=== PATIENT | female | born 1990 | race Hispanic/Latino ===

== ENCOUNTER 2017-09-23 02:15 | Emergency (ER) | payer OTHER, SELFPAY ==
[2017-09-23] MEDS ORDERED: HYDROCODONE/APAP 7.5/325 MG TAB ONE (02:49)
[2017-09-23 03:03] LABS: Absolute Lymphocytes (CBC) 1.5 K/uL (0.7-4.9); Absolute Monocytes 0.5 K/uL (0.1-1.3); Absolute Neutrophil 6.8 K/uL (1.8-8.0); Basophils % 0.2 % (0-1.3); Eosinophils % 2.1 % (0-4.4); Hematocrit 39.1 % (36.0-45.0); Lymphocytes % 16.7 % (15.3-44.8); MCV 87.4 fL (80-100); Monocytes % 5.8 % (3.3-12.3); RBC Red Blood Cell Count 4.48 M/uL (3.86-4.86)
--- NOTE | 2017-09-23 03:29 | EDPHYS ---
Physician Documentation [facility] Name: Bianca Zamora Age: 26 yrs Sex: Female : 1990 Arrival Date: 09/23/2017 Time: 02:20 Bed 15 Private MD: ED Physician Wilmer Hernandez HPI: 09/23 02:46 This 26 yrs old Female presents to ER via Ambulatory with complaints of Cough, pkl Headache. 02:46 The patient or guardian reports cough, described as mild, with no sputum. Onset: The pkl symptoms/episode began/occurred yesterday. Associated signs and symptoms: Pertinent positives: sore throat, headache. 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 - Social history:: Smoking status: Patient/guardian denies using tobacco, the patient reports quitting approximately .25 years ago, Patient uses alcohol, but reports only rare drinking. Patient/guardian denies using street drugs. ROS: 02:46 Eyes: Negative for injury, pain, redness, and discharge. pkl 02:46 ENT: Positive for sore throat. 02:46 Neck: Negative for stiffness. 02:46 Cardiovascular: Negative for chest pain. 02:46 Respiratory: Positive for cough, with no reported sputum. 02:46 Abdomen/GI: Negative for abdominal pain, nausea, vomiting, and diarrhea. 02:46 Back: Negative for acute changes. 02:46 : Negative for urinary symptoms. 02:46 MS/extremity: Negative for acute changes. 02:46 Skin: Negative for rash. 02:46 Neuro: Positive for headache. Exam: 02:46 Head/Face: Normocephalic, atraumatic. Eyes: Pupils equal round and reactive to light, pkl extra-ocular motions intact. Lids and lashes normal. Conjunctiva and sclera are non-icteric and not injected. Cornea within normal limits. Periorbital areas with no swelling, redness, or edema. ENT: Nares patent. No nasal discharge, no septal abnormalities noted. Tympanic membranes are normal and external auditory canals are clear. Oropharynx with no redness, swelling, or masses, exudates, or evidence of obstruction, uvula midline. Mucous membranes moist. Neck: Trachea midline, no thyromegaly or masses palpated, and no cervical lymphadenopathy. Supple, full range of motion without nuchal rigidity, or vertebral point tenderness. No Meningismus. Chest/axilla: Normal chest wall appearance and motion. Nontender with no deformity. No lesions are appreciated. Cardiovascular: Regular rate and rhythm with a normal S1 and S2. No gallops, murmurs, or rubs. Normal PMI, no JVD. No pulse deficits. Respiratory: Lungs have equal breath sounds bilaterally, clear to auscultation and percussion. No rales, rhonchi or wheezes noted. No increased work of breathing, no retractions or nasal flaring. Abdomen/GI: Soft, non-tender, with normal bowel sounds. No distension or tympany. No guarding or rebound. No evidence of tenderness throughout. Back: No spinal tenderness. No costovertebral tenderness. Full range of motion. Skin: Warm, dry with normal turgor. Normal color with no rashes, no lesions, and no evidence of cellulitis. MS/ Extremity: Pulses equal, no cyanosis. Neurovascular intact. Full, normal range of motion. Neuro: Awake and alert, GCS 15, oriented to person, place, time, and situation. Cranial nerves II-XII grossly intact. Motor strength 5/5 in all extremities. Sensory grossly intact. Cerebellar exam normal. Normal gait. Vital Signs: 02:38 BP 126 / 79; Pulse 79; Resp 18; Temp 98.0(O); Pulse Ox 100% on R/A; Weight 83.91 kg fc (R); Height 5 ft. 3 in. (160.02 cm) (R); Pain 7/10; 03:21 BP 99 / 65; Pulse 74; Resp 18; Pulse Ox 100% on R/A; mg2 02:38 Body Mass Index 32.77 (83.91 kg, 160.02 cm) fc MDM: 02:38 Patient medically screened. [facility] 03:21 Data reviewed: vital signs, nurses notes, lab test result(s). [facility] 09/23 02:45 Order name: CBC with Diff; Complete Time: 03:19 [facility] 09/23 02:45 Order name: Strep; Complete Time: 03:19 pkl 09/23 03:19 Order name: Throat Culture EDMS Administered Medications: 02:51 Drug: [place] (7.5 mg-325 mg) 1 tabs Route: PO; mg2 03:40 Follow up: Response: No adverse reaction; Pain is decreased mg2 Disposition: 09/23/17 03:28 Discharged to Home. Impression: Acute headache. Upper respiratory infection. - Condition is Stable. - Prescriptions for Ultram 50 mg Oral Tablet - take 1 tablet by ORAL route every 8 hours As needed; 20 tablet. Guaifenesin AC 10- 100 mg/5 mL Oral Liquid - take 10 milliliters by ORAL route every 8 hours As needed; 120 milliliter. - Medication Reconciliation Form, Thank You Letter, Antibiotic Education, Prescription Opioid Use form. - Follow up: Private Physician; When: 2 - 3 days; Reason: Re-evaluation by your physician. Signatures: Dispatcher [employer] EDMS Wilmer Hernandez MD MD pkl Melinda Macias RN RN Santhosh Heredia RN RN mg2 Corrections: (The following items were deleted from the chart) 03:47 03:28 09/23/2017 03:28 Discharged to Home. Impression: Acute headache. Upper mg2 respiratory infection. Condition is Stable. Forms are Medication Reconciliation Form, Thank You Letter, Antibiotic Education, Prescription Opioid Use. Follow up: Private Physician; When: 2 - 3 days; Reason: Re-evaluation by your physician. pkl
--- NOTE | 2017-09-23 03:29 | ER ---
Nurse's Notes [facility] Name: Bianca Zamora Age: 26 yrs Sex: Female : 1990 Arrival Date: 09/23/2017 Time: 02:20 Bed 15 Private MD: Diagnosis: Acute headache. Upper respiratory infection Presentation: 09/23 02:35 Presenting complaint: Patient states: that yesterday morning she started to have a fc headache with nausea. It has gotten worse since. Also has sore throat, non-productive cough, no fever and has chest tightness but only when she coughs. Transition of care: patient was not received from another setting of care. Onset of symptoms was September 22, 2017. Initial Sepsis Screen: Does the patient meet any 2 criteria? No. Patient's initial sepsis screen is negative. Does the patient have a suspected source of infection? No. Patient's initial sepsis screen is negative. Care prior to arrival: None. 02:35 Method Of Arrival: Ambulatory 02:35 Acuity: LOAN 3 Triage Assessment: 02:38 Headache History: The patient has had previous headaches and this one is similar to previous episodes. 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 - Social history:: Smoking status: Patient/guardian denies using tobacco, the patient reports quitting approximately .25 years ago, Patient uses alcohol, but reports only rare drinking. Patient/guardian denies using street drugs. Screenin:39 Abuse screen: Denies threats or abuse. Nutritional screening: No deficits noted. bb Tuberculosis screening: No symptoms or risk factors identified. Fall Risk None identified. Assessment: 02:39 General: Appears in no apparent distress. uncomfortable, Behavior is calm, cooperative. bb Pain: Complains of pain in headache. Pain: Pain does not radiate. Pain began 1 day ago. Neuro: Level of Consciousness is awake, alert, obeys commands, Oriented to person, place, time, situation. Cardiovascular: No deficits noted. Respiratory: Respiratory effort is even, unlabored. GI: No signs and/or symptoms were reported involving the gastrointestinal system. : No signs and/or symptoms were reported regarding the genitourinary system. Derm: Skin is pink, warm \T\ dry. Musculoskeletal: Circulation, motion, and sensation intact. Vital Signs: 02:38 BP 126 / 79; Pulse 79; Resp 18; Temp 98.0(O); Pulse Ox 100% on R/A; Weight 83.91 kg fc (R); Height 5 ft. 3 in. (160.02 cm) (R); Pain 7/10; 03:21 BP 99 / 65; Pulse 74; Resp 18; Pulse Ox 100% on R/A; mg2 02:38 Body Mass Index 32.77 (83.91 kg, 160.02 cm) ED Course: 02:20 Patient arrived in ED. es 02:35 Inserted saline lock: 20 gauge in left forearm, using aseptic technique. Patient bb maintains SpO2 saturation greater than 95% on room air. 02:36 Triage completed. 02:38 Wilmer Hernandez MD is Attending Physician. pkl 02:39 Santhosh Heredia, PORSCHE is Primary Nurse. mg2 02:39 Patient has correct armband on for positive identification. Placed in gown. Bed in low bb position. Call light in reach. Side rails up X2. Adult w/ patient. Pulse ox on. NIBP on. Warm blanket given. 03:46 No provider procedures requiring assistance completed. IV discontinued, intact, mg2 bleeding controlled, No redness/swelling at site. Pressure dressing applied. Administered Medications: 02:51 Drug: [place] (7.5 mg-325 mg) 1 tabs Route: PO; mg2 03:40 Follow up: Response: No adverse reaction; Pain is decreased mg2 Outcome: 03:28 Discharge ordered by . pklito 03:47 Discharged to home ambulatory, with family. mg2 03:47 Condition: stable 03:47 Discharge instructions given to patient, family, Instructed on discharge instructions, follow up and referral plans. Demonstrated understanding of instructions, follow-up care, medications, Prescriptions given X 2. 03:47 Patient left the ED. mg2 Signatures: Wilmer Hernandez MD MD pkl Salyer, Edna es Chretien, Felicia, RN RN Marika Horne RN RN bb Santhosh Heredia RN RN mg2
== END 2017-09-23 03:47 | disposition home or self-care (01) ==
LOC: ER 02:15
DX: J06.9 Acute upper respiratory infection, unspecified (principal)
CPT/HCPCS: 36415; 85025; 87070; 87081; 99284

== ENCOUNTER 2018-02-05 21:06 | Emergency (ER) | payer SELFPAY ==
--- NOTE | 2018-02-05 21:31 | ER ---
Nurse's Notes [facility] Name: Bianca Zamora Age: 27 yrs Sex: Female : 1990 Arrival Date: 02/05/2018 Time: 21:08 Bed 16 Private MD: Diagnosis: Dental caries;Fall due to bumping against object Presentation: 02/05 21:16 Presenting complaint: Patient states: right lower tooth pain X6 months. pt stated she ak1 fell into counter yesterday and pain resolved, pain returned tonight after bending over. Transition of care: patient was not received from another setting of care. Onset of symptoms is unknown. Risk Assessment: Do you want to hurt yourself or someone else? Patient reports no desire to harm self or others. Initial Sepsis Screen: Does the patient meet any 2 criteria? No. Patient's initial sepsis screen is negative. Does the patient have a suspected source of infection? No. Patient's initial sepsis screen is negative. Care prior to arrival: None. 21:16 Method Of Arrival: Ambulatory ak1 21:16 Acuity: LOAN 4 ak1 Triage Assessment: 21:20 General: Appears in no apparent distress. uncomfortable, Behavior is calm, cooperative, jb4 appropriate for age. 21:20 EENT: Reports pain in mouth. 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 - Social history:: Smoking status: Patient uses tobacco products, denies chronic smoking, but will smoke occasionally. - Ebola Screening: : No symptoms or risks identified at this time. Screenin:30 Abuse screen: Denies threats or abuse. Nutritional screening: On. Tuberculosis jb4 screening: No symptoms or risk factors identified. Fall Risk None identified. Assessment: 21:30 General: Appears in no apparent distress. uncomfortable, Behavior is calm, cooperative, jb4 appropriate for age. Pain: Complains of pain in low back area, tooth ache Pain does not radiate. Pain currently is 2 out of 10 on a pain scale. Quality of pain is described as stabbing, throbbing. Neuro: Level of Consciousness is awake, alert, obeys commands, Oriented to person, place, time, situation. Cardiovascular: Patient's skin is warm and dry. Respiratory: Airway is patent Respiratory effort is even, unlabored, Respiratory pattern is regular, symmetrical, Breath sounds are clear bilaterally. GI: No signs and/or symptoms were reported involving the gastrointestinal system. : No signs and/or symptoms were reported regarding the genitourinary system. EENT: Oral mucosa is moist. Dental caries noted in mouth. Derm: Skin is intact, Skin is pink, warm \T\ dry. Musculoskeletal: Circulation, motion, and sensation intact. 21:45 Reassessment: Patient appears in no apparent distress at this time. Patient is alert, jb4 oriented x 3, equal unlabored respirations, skin warm/dry/pink. Discussed D/c, F/u with pt, denies questions of concerns. Vital Signs: 21:18 BP 136 / 81; Pulse 99; Resp 18; Temp 98; Pulse Ox 100% on R/A; Weight 89.81 kg (R); ak1 Height 5 ft. 4 in. (162.56 cm) (R); Pain 7/10; 21:30 BP 115 / 64; Pulse 78; Resp 18; Pulse Ox 100% on R/A; Pain 2/10; jb4 21:18 Body Mass Index 33.99 (89.81 kg, 162.56 cm) ak1 ED Course: 21:08 Patient arrived in ED. ds1 21:17 Triage completed. ak1 21:18 Arm band placed on Patient placed in an exam room, on a stretcher, Patient notified of ak1 wait time. 21:20 Roxana Dawn FNP-C is PHCP. snw 21:20 Javan Gore MD is Attending Physician. snw 21:21 Artie Dykes, PORSCHE is Primary Nurse. jb4 21:30 Patient has correct armband on for positive identification. Placed in gown. Bed in low jb4 position. Call light in reach. Side rails up X 1. Pulse ox on. NIBP on. 21:45 Patient did not have IV access during this emergency room visit. jb4 21:45 No provider procedures requiring assistance completed. jb4 Administered Medications: 21:37 Drug: Motrin 600 mg Route: PO; jb4 21:38 Drug: Augmentin 875 mg Route: PO; jb4 Outcome: 21:31 Discharge ordered by . mu 21:45 Patient left the ED. jb4 21:45 Discharged to home ambulatory. jb4 21:45 Condition: stable 21:45 Discharge instructions given to patient, Instructed on discharge instructions, follow up and referral plans. medication usage, Demonstrated understanding of instructions, follow-up care, medications, Prescriptions given X 2. Signatures: Roxana Dawn, DENTAL FRONT OFFICE ASSISTANT-C DENTAL FRONT OFFICE ASSISTANT-Liz Garcia ds1 Shawna Aaron, RN RN ak1 Artie Dykes, RN RN jb4 Corrections: (The following items were deleted from the chart) 22:02 22:02 General: Appears in no apparent distress. uncomfortable, Behavior is calm, jb4 cooperative, appropriate for age, jb4 22:09 21:45 Reassessment: D/c, F/u to pt, denies concerns. jb4 jb4
--- NOTE | 2018-02-05 21:31 | EDPHYS ---
Physician Documentation [facility] Name: Bianca Zamora Age: 27 yrs Sex: Female : 1990 Arrival Date: 02/05/2018 Time: 21:08 Bed 16 Private MD: ED Physician Javan Gore HPI: 02/05 21:36 This 27 yrs old Female presents to ER via Ambulatory with complaints of snw Toothache, Back Pain. 21:36 The patient presents with broken tooth/teeth, pain. The problem is located in the lower snw right second molar. Onset: The symptoms/episode began/occurred gradually, 6 month(s) ago, and became persistent. Duration: The symptoms are continuous. Associated signs and symptoms: Pertinent positives: pt states she slipped an fell back into the counter last pm and now c/o back pain as well. Severity of symptoms: At their worst the symptoms were mild, moderate. It is unknown whether or not the patient has had similar symptoms in the past. The patient has not recently seen a physician, pt states she has a dentist but it is in [place]. 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 - Social history:: Smoking status: Patient uses tobacco products, denies chronic smoking, but will smoke occasionally. - Ebola Screening: : No symptoms or risks identified at this time. ROS: 21:35 Constitutional: Negative for fever, chills, and weight loss, Eyes: Negative for injury, snw pain, redness, and discharge, Neck: Negative for injury, pain, and swelling, Cardiovascular: Negative for chest pain, palpitations, and edema, Respiratory: Negative for shortness of breath, cough, wheezing, and pleuritic chest pain, Abdomen/GI: Negative for abdominal pain, nausea, vomiting, diarrhea, and constipation, : Negative for injury, bleeding, discharge, and swelling, MS/Extremity: Negative for injury and deformity, Skin: Negative for injury, rash, and discoloration, Neuro: Negative for headache, weakness, numbness, tingling, and seizure. 21:35 ENT: Positive for dental pain. 21:35 Back: Positive for injury or acute deformity, of the lumbar area. Exam: 21:34 Constitutional: This is a well developed, well nourished patient who is awake, alert, snw and in no acute distress. Head/Face: Normocephalic, atraumatic. Eyes: Pupils equal round and reactive to light, extra-ocular motions intact. Lids and lashes normal. Conjunctiva and sclera are non-icteric and not injected. Cornea within normal limits. Periorbital areas with no swelling, redness, or edema. Neck: Trachea midline, no thyromegaly or masses palpated, and no cervical lymphadenopathy. Supple, full range of motion without nuchal rigidity, or vertebral point tenderness. No Meningismus. Chest/axilla: Normal chest wall appearance and motion. Nontender with no deformity. No lesions are appreciated. Cardiovascular: Regular rate and rhythm with a normal S1 and S2. No gallops, murmurs, or rubs. Normal PMI, no JVD. No pulse deficits. Respiratory: Lungs have equal breath sounds bilaterally, clear to auscultation and percussion. No rales, rhonchi or wheezes noted. No increased work of breathing, no retractions or nasal flaring. Abdomen/GI: Soft, non-tender, with normal bowel sounds. No distension or tympany. No guarding or rebound. No evidence of tenderness throughout. Skin: Warm, dry with normal turgor. Normal color with no rashes, no lesions, and no evidence of cellulitis. MS/ Extremity: Pulses equal, no cyanosis. Neurovascular intact. Full, normal range of motion. Neuro: Awake and alert, GCS 15, oriented to person, place, time, and situation. Cranial nerves II-XII grossly intact. Motor strength 5/5 in all extremities. Sensory grossly intact. Cerebellar exam normal. Normal gait. Psych: Awake, alert, with orientation to person, place and time. Behavior, mood, and affect are within normal limits. 21:34 ENT: External ear(s): are unremarkable, Ear canal(s): are normal, TM's: are normal, Nose: is normal, Mouth: is normal, Posterior pharynx: is normal, Dental exam: fractured teeth are noted, specifically the lower right second molar (#31), missing teeth, pain. 21:34 Back: pain, that is very mild, that is mild, of the lumbar area, ROM is normal, normal spinal alignment noted. Vital Signs: 21:18 BP 136 / 81; Pulse 99; Resp 18; Temp 98; Pulse Ox 100% on R/A; Weight 89.81 kg (R); ak1 Height 5 ft. 4 in. (162.56 cm) (R); Pain 7/10; 21:30 BP 115 / 64; Pulse 78; Resp 18; Pulse Ox 100% on R/A; Pain 2/10; jb4 21:18 Body Mass Index 33.99 (89.81 kg, 162.56 cm) ak1 MDM: 21:25 Patient medically screened. snw 21:35 Data reviewed: vital signs, nurses notes. Data interpreted: Pulse oximetry: on room air snw is 100 %. Interpretation: normal. Counseling: I had a detailed discussion with the patient and/or guardian regarding: the historical points, exam findings, and any diagnostic results supporting the discharge/admit diagnosis, the presence of at least one elevated blood pressure reading (>120/80) during this emergency department visit, the need for outpatient follow up, for definitive care, to return to the emergency department if symptoms worsen or persist or if there are any questions or concerns that arise at home. Special discussion: I have referred the patient to see his PCP for further evaluation of high blood pressure. Based on the history and exam findings, there is no indication for further emergent testing or inpatient evaluation. I discussed with the patient/guardian the need to see a dentist for further evaluation of the symptoms. I discussed with the patient/guardian the need to see the primary care provider for further evaluation of the symptoms. Administered Medications: 21:37 Drug: Motrin 600 mg Route: PO; jb4 21:38 Drug: Augmentin 875 mg Route: PO; jb4 Disposition: 02/06 06:25 Co-signature as Attending Physician, Javan Gore MD I agree with the assessment and tw4 plan of care. Attestation: The patient's history, exam findings, diagnostics, and a summary of any interventions or procedures was reviewed in detail with Roxana JACOBO. Disposition: 02/05/18 21:31 Discharged to Home. Impression: Dental caries, Fall due to bumping against object. - Condition is Stable. - Discharge Instructions: Back Pain, Adult, Dental Pain, Fall Prevention in the Home, Diet and Dental Disease. - Prescriptions for Augmentin 500- 125 mg Oral Tablet - take 1 tablet by ORAL route every 8 hours for 10 days; 30 tablet. Diclofenac Sodium 75 mg Oral Tablet Sustained Release - take 1 tablet by ORAL route 2 times per day; 30 tablet. - Medication Reconciliation Form, Thank You Letter, Antibiotic Education, Prescription Opioid Use form. - Follow up: Emergency Department; When: As needed; Reason: Worsening of condition. Follow up: Private Physician; When: 1 - 2 days; Reason: Recheck today's complaints, Continuance of care, Re-evaluation by your physician. Signatures: Roxana Dawn FNP-C VERIFICATION CLERK-Csnw Shawna Aaron, RN RN ak1 Artie Dykes RN RN jb4 Javan Gore MD MD tw4 Corrections: (The following items were deleted from the chart) 02/05 21:45 21:31 02/05/2018 21:31 Discharged to Home. Impression: Dental caries; Fall due to jb4 bumping against object. Condition is Stable. Forms are Medication Reconciliation Form, Thank You Letter, Antibiotic Education, Prescription Opioid Use. Follow up: Emergency Department; When: As needed; Reason: Worsening of condition. Follow up: Private Physician; When: 1 - 2 days; Reason: Recheck today's complaints, Continuance of care, Re-evaluation by your physician. snw
[2018-02-05] MEDS ORDERED: IBUPROFEN 400 MG TAB ONE (21:40)
[2018-02-05] MEDS ORDERED: IBUPROFEN 200 MG TAB PO ONE (21:40)
[2018-02-05] MEDS ORDERED: AMOX/K CLAV 875 MG TAB ONE (21:40)
== END 2018-02-05 21:45 | disposition home or self-care (01) ==
LOC: ER 21:06
DX: K02.9 Dental caries, unspecified (principal); W18.00XA Striking against unspecified object with subsequent fall, initial encounter; Y93.89 Activity, other specified; Y92.89 Other specified places as the place of occurrence of the external cause; Z72.0 Tobacco use
CPT/HCPCS: 99283

== ENCOUNTER 2019-06-02 22:41 | Emergency (ER) | payer SELFPAY ==
--- OUTSIDE RECORDS SUMMARY | 2019-06-02 22:44 | XMS REPORT ---
:1990 [facility] Address [address] [place] [address] Dr. Escobedo. [address] [place] [id number] Care Team Providers Name Role Phone Unavailable Unavailable Unavailable Problems This patient has no known problems. Allergies, Adverse Reactions, Alerts This patient has no known allergies or adverse reactions. Medications This patient has no known medications.
[2019-06-02] MEDS ORDERED: NA CHLORIDE 0.9% 1,000 ML ONE (23:35)
[2019-06-02] MEDS ORDERED: DIPHENHYDRAMINE 50 MG/ML VIAL ONE (23:35)
[2019-06-02] MEDS ORDERED: KETOROLAC 30 MG/ML INJ ONE (23:35)
[2019-06-02] MEDS ORDERED: METOCLOPRAMIDE 10 MG/2mL INJ ONE (23:35)
--- NOTE | 2019-06-03 00:21 | ER ---
Nurse's Notes [facility] Name: Bianca Zamora Age: 28 yrs Sex: Female : 1990 Arrival Date: 06/02/2019 Time: 22:44 Bed 13 Private MD: Diagnosis: Headache Presentation: 06/02 23:00 Presenting complaint: Patient states: that she has had a headache x 3 days along with fc nausea. Some photophobia. Is on Amoxicillin for tooth infection. Transition of care: patient was not received from another setting of care. Onset of symptoms was May 30, 2019. Risk Assessment: Do you want to hurt yourself or someone else? Patient reports no desire to harm self or others. Initial Sepsis Screen: Does the patient meet any 2 criteria? No. Patient's initial sepsis screen is negative. Does the patient have a suspected source of infection? No. Patient's initial sepsis screen is negative. Care prior to arrival: Medication(s) given: Excedrin last at 1600. 23:00 Method Of Arrival: Ambulatory fc 23:00 Acuity: LOAN 4 Triage Assessment: 06/03 02:18 Headache History: The patient has had previous headaches and this one is similar to ch previous episodes. General: Appears in no apparent distress. uncomfortable. Pain: Pain began suddenly, Also complains of nausea, photophobia. Pain: Complains of pain in head. 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 - Coronavirus screen:: The patient has NOT traveled to [place], [place], or [place] in the past 14 days. Proceed with normal triage process as indicated. The patient has NOT had contact with known/suspected case of Coronavirus? Proceed with normal triage procedures. - Social history:: Smoking status: Patient/guardian denies using tobacco, the patient reports quitting approximately 1 years ago, Patient uses alcohol, occasionally. Patient/guardian denies using street drugs. - Ebola Screening: : Patient negative for fever greater than or equal to 101.5 degrees Fahrenheit, and additional compatible Ebola Virus Disease symptoms Patient denies exposure to infectious person Patient denies travel to an Ebola-affected area in the 21 days before illness onset. Screenin:25 Abuse screen: Denies threats or abuse. Denies injuries from another. Nutritional ch screening: No deficits noted. Tuberculosis screening: No symptoms or risk factors identified. Fall Risk None identified. Assessment: 23:25 Reassessment: Patient appears in no apparent distress at this time. Patient and/or ch family updated on plan of care and expected duration. Pain level reassessed. Patient is alert, oriented x 3, equal unlabored respirations, skin warm/dry/pink. General: Appears in no apparent distress. uncomfortable, Behavior is calm, cooperative, appropriate for age. Pain: Complains of pain in top of head, forehead, right mandaeism, left mandaeism, left frontal area, left side of forehead, left temporal area, right frontal area, right temporal area and right side of forehead Pain currently is 10 out of 10 on a pain scale. 23:25 Neuro: Level of Consciousness is awake, alert, obeys commands, Oriented to person, ch place, time, situation, Process Eng are equal bilaterally Moves all extremities. Full function Gait is steady, Speech is normal, Facial symmetry appears normal, Facial symmetry: tongue is midline, Pupils are PERRLA, Reports blurred vision headache blurred vision and nausea. Cardiovascular: Heart tones S1 S2 present. Respiratory: No deficits noted. GI: Reports nausea. : No signs and/or symptoms were reported regarding the genitourinary system. Derm: No signs and/or symptoms reported regarding the dermatologic system. Musculoskeletal: No signs and/or symptoms reported regarding the musculoskeletal system. Vital Signs: 23:03 BP 139 / 81; Pulse 75; Resp 18; Temp 99.1(O); Pulse Ox 100% on R/A; Weight 81.65 kg fc (R); Height 5 ft. 4 in. (162.56 cm) (R); Pain 10; 06/03 00:10 BP 121 / 78; Pulse 64; Resp 18; Temp 98.3; Pulse Ox 99% on R/A; Pain 2/10; ch 06/02 23:03 Body Mass Index 30.90 (81.65 kg, 162.56 cm) Cassandra Coma Score: 00:19 Eye Response: spontaneous(4). Verbal Response: oriented(5). Motor Response: obeys la1 commands(6). Total: 15. ED Course: 06/02 22:44 Patient arrived in ED. jg7 23:01 Triage completed. fc 23:03 Arm band placed on Patient placed in an exam room, on a stretcher. fc 23:04 Constanza Griffith RN is Primary Nurse. ch 23:04 Osman Valenzuela FNP-C is PHCP. la1 23:04 Javan Gore MD is Attending Physician. la1 23:25 No apparent distress. Resting quietly. ch 23:25 Patient has correct armband on for positive identification. Bed in low position. Call ch light in reach. Side rails up X 1. Adult w/ patient. Pulse ox on. NIBP on. Door closed. Noise minimized. Warm blanket given. Pillow given. 23:28 No provider procedures requiring assistance completed. Inserted saline lock: 20 gauge ch in right wrist, using aseptic technique. 06/03 00:00 IV discontinued, intact, bleeding controlled, No redness/swelling at site. Pressure ch dressing applied. Administered Medications: 06/02 23:28 Drug: Reglan 10 mg Route: IVP; Site: right wrist; ch 23:40 Follow up: Response: No adverse reaction ch 23:30 Drug: TORadol - Ketorolac 15 mg Route: IVP; Site: right wrist; ch 23:45 Follow up: Response: No adverse reaction; Marked relief of symptoms ch 23:30 Drug: Benadryl 25 mg Route: IVP; Site: right wrist; ch 23:40 Follow up: Response: No adverse reaction; Marked relief of symptoms ch 23:30 Drug: NS 0.9% 1000 ml Route: IV; Rate: 1000 ml; Site: right wrist; ch 06/03 00:00 Follow up: IV Status: Completed infusion; IV Intake: 1000ml ch Intake: 00:00 IV: 1000ml; Total: 1000ml. ch Outcome: 00:21 Discharge ordered by . la1 00:25 Discharged to home ambulatory, with family. 00:25 Condition: stable 00:25 Discharge instructions given to patient, Instructed on discharge instructions, follow up and referral plans. Demonstrated understanding of instructions, follow-up care. 00:28 Patient left the ED. Signatures: Constanza Griffith RN RN Melinda Vizcarra RN RN Osman Chisholm, CLERK GENERAL OFFICE-C CLERK GENERAL OFFICE-Gabriella1 Leigh Edouard7 Corrections: (The following items were deleted from the chart) 06/02 23:03 23:00 Presenting complaint: Patient states: that she has had a headache x 3 days along fc with nausea. Some photophobia. fc
--- NOTE | 2019-06-03 00:22 | EDPHYS ---
Physician Documentation [facility] Name: Bianca Zamora Age: 28 yrs Sex: Female : 1990 Arrival Date: 06/02/2019 Time: 22:44 Bed 13 Private MD: ED Physician Javan Gore HPI: 06/02 23:17 This 28 yrs old Female presents to ER via Ambulatory with complaints of la1 Headache. 23:17 The patient complains of pain to the global. The patient describes the headache as la1 throbbing. Onset: The symptoms/episode began/occurred 3 day(s) ago. Associated signs and symptoms: Pertinent positives: nausea, Pertinent negatives: fever, neck stiffness, paresthesias, vision changes, vision loss, vomiting, weakness, vertigo. Severity of symptoms: At its worst the pain was moderate. Headache History: The patient has had previous headaches and this one is similar to previous episodes, and this one is more severe than previous episodes. The symptoms are alleviated by Darkened room, the symptoms are aggravated by lights. The patient has experienced similar episodes in the past. 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 - Coronavirus screen:: The patient has NOT traveled to [place], [place], or [place] in the past 14 days. Proceed with normal triage process as indicated. The patient has NOT had contact with known/suspected case of Coronavirus? Proceed with normal triage procedures. - Social history:: Smoking status: Patient/guardian denies using tobacco, the patient reports quitting approximately 1 years ago, Patient uses alcohol, occasionally. Patient/guardian denies using street drugs. - Ebola Screening: : Patient negative for fever greater than or equal to 101.5 degrees Fahrenheit, and additional compatible Ebola Virus Disease symptoms Patient denies exposure to infectious person Patient denies travel to an Ebola-affected area in the 21 days before illness onset. ROS: 23:19 Constitutional: Negative for fever, chills, and weight loss, Eyes: Negative for injury, la1 pain, redness, and discharge, ENT: Negative for injury, pain, and discharge, Neck: Negative for injury, pain, and swelling, Cardiovascular: Negative for chest pain, palpitations, and edema, Respiratory: Negative for shortness of breath, cough, wheezing, and pleuritic chest pain, Abdomen/GI: Negative for abdominal pain, nausea, vomiting, diarrhea, and constipation, : Negative for injury, bleeding, discharge, and swelling, MS/Extremity: Negative for injury and deformity, Skin: Negative for injury, rash, and discoloration. 23:19 Neuro: Positive for headache, Negative for altered mental status, dizziness, hearing loss, loss of consciousness, numbness, seizure activity, speech changes, syncope, near syncope, tingling. Exam: 23:19 Constitutional: This is a well developed, well nourished patient who is awake, alert, la1 and in no acute distress. Head/Face: Normocephalic, atraumatic. Eyes: Pupils equal round and reactive to light, extra-ocular motions intact. Lids and lashes normal. Conjunctiva and sclera are non-icteric and not injected. Cornea within normal limits. Periorbital areas with no swelling, redness, or edema. ENT: Nares patent. No nasal discharge, no septal abnormalities noted. Tympanic membranes are normal and external auditory canals are clear. Oropharynx with no redness, swelling, or masses, exudates, or evidence of obstruction, uvula midline. Mucous membranes moist. Neck: Trachea midline, no thyromegaly or masses palpated, and no cervical lymphadenopathy. Supple, full range of motion without nuchal rigidity, or vertebral point tenderness. No Meningismus. Chest/axilla: Normal chest wall appearance and motion. Nontender with no deformity. No lesions are appreciated. Cardiovascular: Regular rate and rhythm with a normal S1 and S2. No gallops, murmurs, or rubs. Normal PMI, no JVD. No pulse deficits. Respiratory: Lungs have equal breath sounds bilaterally, clear to auscultation Abdomen/GI: Soft, non-tender, Back: No spinal tenderness. No costovertebral tenderness. Full range of motion. Skin: Warm, dry with normal turgor. Normal color with no rashes, no lesions, and no evidence of cellulitis. MS/ Extremity: Pulses equal, no cyanosis. Neurovascular intact. Full, normal range of motion. 23:19 Neuro: Orientation: is normal, to person, place, time \T\ situation. Mentation: is normal, Memory: is normal, Cranial nerves: CN II- XII are normal as tested, Cerebellar function: is grossly normal, Motor: is normal, Sensation: is normal, Gait: is steady. Vital Signs: 23:03 BP 139 / 81; Pulse 75; Resp 18; Temp 99.1(O); Pulse Ox 100% on R/A; Weight 81.65 kg fc (R); Height 5 ft. 4 in. (162.56 cm) (R); Pain 10; 06/03 00:10 BP 121 / 78; Pulse 64; Resp 18; Temp 98.3; Pulse Ox 99% on R/A; Pain 210; ch 06/02 23:03 Body Mass Index 30.90 (81.65 kg, 162.56 cm) Cassandra Coma Score: 00:19 Eye Response: spontaneous(4). Verbal Response: oriented(5). Motor Response: obeys la1 commands(6). Total: 15. MDM: 06/02 23:04 Patient medically screened. la1 06/03 00:19 Data reviewed: vital signs, nurses notes. Data interpreted: Pulse oximetry: on room air la1 is 100 %. Interpretation: normal. Counseling: I had a detailed discussion with the patient and/or guardian regarding: the historical points, exam findings, and any diagnostic results supporting the discharge/admit diagnosis, the need for outpatient follow up, a family practitioner. Special discussion: I discussed with the patient/guardian in detail that at this point there is no indication for admission to the hospital. It is understood, however, that if the symptoms persist or worsen the patient needs to return immediately for re-evaluation. Based on the history and exam findings, there is no indication for further emergent testing or inpatient evaluation. I discussed with the patient/guardian the need to see the primary care provider for further evaluation of the symptoms. ED course: pt feeling much better after meds will have FU with PCP, return precautions given. 06/02 23:11 Order name: IV; Complete Time: :29 la1 Administered Medications: 06/02 23: Drug: Reglan 10 mg Route: IVP; Site: right wrist; ch 23:40 Follow up: Response: No adverse reaction ch 23:30 Drug: TORadol - Ketorolac 15 mg Route: IVP; Site: right wrist; 23:45 Follow up: Response: No adverse reaction; Marked relief of symptoms ch 23:30 Drug: Benadryl 25 mg Route: IVP; Site: right wrist; ch 23:40 Follow up: Response: No adverse reaction; Marked relief of symptoms ch 23:30 Drug: NS 0.9% 1000 ml Route: IV; Rate: 1000 ml; Site: right wrist; 06/03 00:00 Follow up: IV Status: Completed infusion; IV Intake: 1000ml Disposition: 05:19 Co-signature as Attending Physician, Javan Gore MD I agree with the assessment and tw4 plan of care. Disposition: 06/03/19 00:21 Discharged to Home. Impression: Headache. - Condition is Stable. - Discharge Instructions: General Headache Without Cause. - Medication Reconciliation Form, Thank You Letter form. - Follow up: Private Physician; When: As needed; Reason: Recheck today's complaints, Re-evaluation by your physician. - Problem is new. - Symptoms have improved. Signatures: Constanza Griffith RN Melinda Miller ch RN RN fc Osman Valenzuela, LAUNDERER HAND-C LAUNDERER HAND-[facility] Javan Gore MD MD tw4 Corrections: (The following items were deleted from the chart) 00:28 00:21 06/03/2019 00:21 Discharged to Home. Impression: Headache. Condition is Stable. ch Forms are Medication Reconciliation Form, Thank You Letter, Antibiotic Education, Prescription Opioid Use. Follow up: Private Physician; When: As needed; Reason: Recheck today's complaints, Re-evaluation by your physician. Problem is new. Symptoms have improved. la1
[2019-06-03 00:43] VITALS: BP 139/81; TEMP 99.1; O2SAT 100
== END 2019-06-03 00:28 | disposition home or self-care (01) ==
LOC: ER 22:41
DX: R51 Headache (principal)
CPT/HCPCS: 96374; 96375; 99283; J1200; J2765; J7030

== ENCOUNTER 2020-04-23 01:07 | Emergency (ER) | payer SELFPAY ==
--- OUTSIDE RECORDS SUMMARY | 2020-04-23 01:10 | XMS REPORT | Continuity of Care Document ---
:1990 Author Organization [facility] t Address [address] [place] [address] [address] [place] [address] Care Team Providers Name Role Phone Lab, Fam Pob I Attending Clinician Unavailable Doctor Unassigned, Name Attending Clinician Unavailable Problems This patient has no known problems. Allergies, Adverse Reactions, Alerts This patient has no known allergies or adverse reactions. Medications This patient has no known medications. Procedures This patient has no known procedures. Encounters Start End Encounter Admission Attending Care Care Encounter Source Date/Time Date/Time Type Type Clinicians Facility Department ID 2019-11-16 2019-11-16 Laboratory Lab, Adc [facility] [id number] 14:36:15 14:56:15 Only Fam Pob I Health [id number] [place] [id number] [facility] [id number] [address] 2019-11-16 2019-11-16 Letter Doctor [place] [id number] 00:00:00 00:00:00 (Out) Unassigned, [place] [id number] [place] [facility] [id number] Results This patient has no known results.
[2020-04-23] MEDS ORDERED: dexAMETHasone 10 MG/ML VIAL ONE (01:46)
[2020-04-23] MEDS ORDERED: METOCLOPRAMIDE 10 MG/2mL INJ ONE (01:46)
[2020-04-23] MEDS ORDERED: DIPHENHYDRAMINE 50 MG/ML VIAL ONE (01:46)
[2020-04-23] MEDS ORDERED: NA CHLORIDE 0.9% 1,000 ML ONE (01:46)
--- NOTE | 2020-04-23 03:58 | EDPHYS ---
Physician Documentation [facility] Name: Bianca Zamora Age: 29 yrs Sex: Female : 1990 Arrival Date: 04/23/2020 Time: 01:09 Bed 7 Private MD: ED Physician Niranjan Le HPI: 04/23 02:06 This 29 yrs old Female presents to ER via EMS with complaints of Headache. mh7 02:06 The patient complains of pain to the left side of head. The patient describes the mh7 headache as intermittent, throbbing, waxing and waning. Onset: The symptoms/episode began/occurred 3 day(s) ago. Associated signs and symptoms: Pertinent positives: nausea, Photophobia Pertinent negatives: altered mental status, dizziness, fever, malaise, neck stiffness, paresthesias, rash, sinus congestion, sinus tenderness, vision changes, vision loss, vomiting, weakness, vertigo. Severity of symptoms: At its worst the pain was moderate, yesterday, in the emergency department the pain has improved, mildly. Headache History: The patient has had previous headaches and this one is similar to previous episodes. The symptoms are alleviated by nothing. the symptoms are aggravated by nothing. The patient has experienced similar episodes in the past, multiple times. 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 - Social history:: Smoking status: Patient reports the use of cigarette tobacco products, denies chronic smoking, but will smoke occasionally. ROS: 02:06 Constitutional: Negative for fever, chills, and weight loss, Eyes: Negative for injury, mh7 pain, redness, and discharge, ENT: Negative for injury, pain, and discharge, Neck: Negative for injury, pain, and swelling, Cardiovascular: Negative for chest pain, palpitations, and edema, Respiratory: Negative for shortness of breath, cough, wheezing, and pleuritic chest pain, Back: Negative for injury and pain, : Negative for injury, bleeding, discharge, and swelling, MS/Extremity: Negative for injury and deformity, Skin: Negative for injury, rash, and discoloration, Psych: Negative for depression, anxiety, suicide ideation, homicidal ideation, and hallucinations, Allergy/Immunology: Negative for hives, rash, and allergies, Endocrine: Negative for neck swelling, polydipsia, polyuria, polyphagia, and marked weight changes, Hematologic/Lymphatic: Negative for swollen nodes, abnormal bleeding, and unusual bruising. Exam: 02:06 Eyes: Pupils equal round and reactive to light, extra-ocular motions intact. Lids and mh7 lashes normal. Conjunctiva and sclera are non-icteric and not injected. Cornea within normal limits. Periorbital areas with no swelling, redness, or edema. Neck: Trachea midline, no thyromegaly or masses palpated, and no cervical lymphadenopathy. Supple, full range of motion without nuchal rigidity, or vertebral point tenderness. No Meningismus. Chest/axilla: Normal chest wall appearance and motion. Nontender with no deformity. No lesions are appreciated. Cardiovascular: Regular rate and rhythm with a normal S1 and S2. No gallops, murmurs, or rubs. Normal PMI, no JVD. No pulse deficits. Respiratory: Lungs have equal breath sounds bilaterally, clear to auscultation and percussion. No rales, rhonchi or wheezes noted. No increased work of breathing, no retractions or nasal flaring. Abdomen/GI: Soft, non-tender, with normal bowel sounds. No distension or tympany. No guarding or rebound. No evidence of tenderness throughout. Back: No spinal tenderness. No costovertebral tenderness. Full range of motion. Skin: Warm, dry with normal turgor. Normal color with no rashes, no lesions, and no evidence of cellulitis. MS/ Extremity: Pulses equal, no cyanosis. Neurovascular intact. Full, normal range of motion. Neuro: Awake and alert, GCS 15, oriented to person, place, time, and situation. Cranial nerves II-XII grossly intact. Motor strength 5/5 in all extremities. Sensory grossly intact. Cerebellar exam normal. Normal gait. Psych: Awake, alert, with orientation to person, place and time. Behavior, mood, and affect are within normal limits. 02:06 Constitutional: The patient appears in no acute distress, alert, awake, uncomfortable. 02:06 Head/face: Noted is tenderness, that is moderate, of the left side of head. Vital Signs: 01:09 BP 130 / 90; Pulse 89; Resp 18; Temp 98; Pulse Ox 99% on R/A; Weight 86.18 kg; Height 5 ea ft. 4 in. (162.56 cm); 02:55 BP 106 / 81; Pulse 65; Resp 16; Pulse Ox 99% ; rr5 04:00 BP 106 / 67; Pulse 69; Resp 16; Pulse Ox 98% ; rr5 01:09 Body Mass Index 32.61 (86.18 kg, 162.56 cm) ea [place] Coma Score: 03:55 Eye Response: spontaneous(4). Verbal Response: oriented(5). Motor Response: obeys [facility] commands(6). Total: 15. MDM: 03:55 Differential diagnosis: cluster headache, migraine, tension headache. Data reviewed: [facility] vital signs, nurses notes, old medical records. Data interpreted: Pulse oximetry: on room air is 99 %. Interpretation: normal. Counseling: I had a detailed discussion with the patient and/or guardian regarding: the historical points, exam findings, and any diagnostic results supporting the discharge/admit diagnosis, the need for outpatient follow up, a neurologist, to return to the emergency department if symptoms worsen or persist or if there are any questions or concerns that arise at home. Response to treatment: the patient's symptoms have resolved after treatment, the patient's blood pressure is in an acceptable range, mental status has returned to baseline, the patient no longer shows bradycardia, the patient is not short of breath, the patient is not tachycardic, the patient's pain is gone, the patient's temperature has normalized. 03:57 Patient medically screened. [facility] Administered Medications: 01:38 Drug: Decadron - Dexamethasone 10 mg Route: IVP; Site: right forearm; rr5 02:40 Follow up: Response: No adverse reaction rr5 01:40 Drug: Benadryl 50 mg Route: IVP; Site: right forearm; rr5 03:00 Follow up: Response: No adverse reaction; Marked relief of symptoms rr5 01:42 Drug: NS 0.9% 1000 ml Route: IV; Rate: 1000 ml; Site: right forearm; rr5 02:30 Follow up: Response: No adverse reaction; IV Status: Completed infusion; IV Intake: rr5 1000ml 01:42 Drug: Reglan 10 mg Route: IVP; Site: right forearm; rr5 03:00 Follow up: Response: No adverse reaction; Marked relief of symptoms rr5 Disposition: 04/23/20 03:57 Discharged to Home. Impression: Headache. - Condition is Stable. - Discharge Instructions: General Headache Without Cause. - Prescriptions for FIORECET - take 1 tablet by ORAL route every 6 hours As needed; 12 tablet. - Medication Reconciliation Form, Thank You Letter, Antibiotic Education, Prescription Opioid Use form. - Follow up: Private Physician; When: 1 - 2 days; Reason: Worsening of condition, Recheck today's complaints, Continuance of care, Re-evaluation by your physician. Follow up: Travis Lynne MD; When: 1 - 2 days; Reason: Worsening of condition, Recheck today's complaints. - Problem is an acute exacerbation. - Symptoms have improved. Signatures: Judit Maldondao RN RN ea Gary Santana RN RN rr5 Niranjan Le MD MD mh7 Corrections: (The following items were deleted from the chart) 04:06 03:57 04/23/2020 03:57 Discharged to Home. Impression: Headache. Condition is Stable. ea Forms are Medication Reconciliation Form, Thank You Letter, Antibiotic Education, Prescription Opioid Use. Follow up: Private Physician; When: 1 - 2 days; Reason: Worsening of condition, Recheck today's complaints, Continuance of care, Re-evaluation by your physician. Follow up: Travis Lynne; When: 1 - 2 days; Reason: Worsening of condition, Recheck today's complaints. Problem is an acute exacerbation. Symptoms have improved. mh7
--- NOTE | 2020-04-23 03:58 | ER ---
Nurse's Notes [facility] Name: Bianca Zamora Age: 29 yrs Sex: Female : 1990 Arrival Date: 04/23/2020 Time: 01:09 Bed 7 Private MD: Diagnosis: Headache Presentation: 04/23 01:09 Chief complaint: EMS states: Reports headache on left side of head that started three ea hours ago. Pt reports taking multiple over the counter medications without relief. Reports hx of migraines. Coronavirus screen: At this time, the client does not indicate any symptoms associated with coronavirus-19. Ebola Screen: No symptoms or risks identified at this time. Initial Sepsis Screen: Does the patient meet any 2 criteria? No. Patient's initial sepsis screen is negative. Does the patient have a suspected source of infection? No. Patient's initial sepsis screen is negative. Risk Assessment: Do you want to hurt yourself or someone else? Patient reports no desire to harm self or others. Onset of symptoms was April 23, 2020. 01:09 Method Of Arrival: EMS: [facility] ea 01:09 Acuity: LOAN 3 ea Triage Assessment: 01:12 Headache History: The patient has had previous headaches and this one is similar to ea previous episodes. General: Appears uncomfortable, Behavior is appropriate for age. Pain: Complains of pain in left side of head Pain does not radiate. Pain currently is 10 out of 10 on a pain scale. Quality of pain is described as throbbing, Pain began 3 hours ago. Also complains of photophobia. Neuro: Level of Consciousness is awake, alert, obeys commands, Oriented to person, place, time, situation, Facial symmetry appears normal. Cardiovascular: Patient's skin is warm and dry. Respiratory: Airway is patent Respiratory effort is even, unlabored, Respiratory pattern is regular, symmetrical. Derm: Skin is pink, warm \T\ dry. 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 - Social history:: Smoking status: Patient reports the use of cigarette tobacco products, denies chronic smoking, but will smoke occasionally. Screenin:11 Abuse screen: Denies threats or abuse. Nutritional screening: No deficits noted. ea Tuberculosis screening: No symptoms or risk factors identified. Fall Risk None identified. Assessment: 01:13 Reassessment: see triage assessment. ea 02:50 Reassessment: Patient appears in no apparent distress at this time. resting eyes closed rr5 breathing spontaneously at room air. 03:30 Reassessment: Patient appears in no apparent distress at this time. Patient is alert, rr5 oriented x 3, equal unlabored respirations, skin warm/dry/pink. for discharge awaiting for her transport. 04:00 Reassessment: Patient appears in no apparent distress at this time. Patient is alert, rr5 oriented x 3, equal unlabored respirations, skin warm/dry/pink. discharge instruction given and explained without complaint made Patient states feeling better. Patient states symptoms have improved. Vital Signs: 01:09 BP 130 / 90; Pulse 89; Resp 18; Temp 98; Pulse Ox 99% on R/A; Weight 86.18 kg; Height 5 ea ft. 4 in. (162.56 cm); 02:55 BP 106 / 81; Pulse 65; Resp 16; Pulse Ox 99% ; rr5 04:00 BP 106 / 67; Pulse 69; Resp 16; Pulse Ox 98% ; rr5 01:09 Body Mass Index 32.61 (86.18 kg, 162.56 cm) ea Cassandra Coma Score: 03:55 Eye Response: spontaneous(4). Verbal Response: oriented(5). Motor Response: obeys mh7 commands(6). Total: 15. ED Course: 01:09 Patient arrived in ED. ea 01:11 Niranjan Le MD is Attending Physician. [facility] 01:11 Triage completed. ea 01:11 Patient has correct armband on for positive identification. Bed in low position. Call ea light in reach. Side rails up X2. Pulse ox on. NIBP on. 01:12 Arm band placed on right wrist. Patient placed in an exam room, on a stretcher, on ea pulse oximetry. 01:20 Judit Maldonado RN is Primary Nurse. ea 01:20 Inserted saline lock: 20 gauge in right forearm, using aseptic technique. ea 03:57 Travis Lynne MD is Referral Physician. [facility] 03:59 No provider procedures requiring assistance completed. IV discontinued, intact, rr5 bleeding controlled, No redness/swelling at site. Pressure dressing applied. Administered Medications: 01:38 Drug: Decadron - Dexamethasone 10 mg Route: IVP; Site: right forearm; rr5 02:40 Follow up: Response: No adverse reaction rr5 01:40 Drug: Benadryl 50 mg Route: IVP; Site: right forearm; rr5 03:00 Follow up: Response: No adverse reaction; Marked relief of symptoms rr5 01:42 Drug: NS 0.9% 1000 ml Route: IV; Rate: 1000 ml; Site: right forearm; rr5 02:30 Follow up: Response: No adverse reaction; IV Status: Completed infusion; IV Intake: rr5 1000ml 01:42 Drug: Reglan 10 mg Route: IVP; Site: right forearm; rr5 03:00 Follow up: Response: No adverse reaction; Marked relief of symptoms rr5 Intake: 02:30 IV: 1000ml; Total: 1000ml. rr5 Outcome: 03:57 Discharge ordered by . [facility] 04:02 Discharged to home ambulatory. rr5 04:02 Condition: stable 04:02 Discharge instructions given to patient, Instructed on discharge instructions, follow up and referral plans. medication usage, Demonstrated understanding of instructions, follow-up care, medications, Prescriptions given X 1. 04:06 Patient left the ED. ea Signatures: Judit Maldonado RN Gary Muñoz ea, RN RN rr5 Niranjan Le MD MD 7 Corrections: (The following items were deleted from the chart) 04:06 04:02 Discharge instructions given to patient, Instructed on discharge instructions, ea follow up and referral plans. Demonstrated understanding of instructions, follow-up care, rr5
[2020-04-25 21:32] VITALS: TEMP 98
[2020-04-25 21:34] VITALS: BP 106/67; O2SAT 98
== END 2020-04-23 04:06 | disposition home or self-care (01) ==
LOC: ER 01:07
DX: R51.9 Headache, unspecified (principal); F17.210 Nicotine dependence, cigarettes, uncomplicated
CPT/HCPCS: 96361; 96374; 96375; 99284; J1100; J1200; J2765; J7030

== ENCOUNTER 2022-05-25 19:56 | Emergency (ER) | payer OTHER, SELFPAY ==
--- OUTSIDE RECORDS SUMMARY | 2022-05-25 20:00 | XMS REPORT | Continuity of Care Document ---
:1990 Author Organization [facility] t Address [address] [place] [address] Care Team Providers Name Role Phone Amrita Mcmanus Primary Care Physician JEISON MANDEL Attending Clinician Unavailable Jeison Craven Attending Clinician Maldonado Barbosa DO Attending Clinician MALDONADO BARBOSA Attending Clinician Unavailable Doctor Unassigned, [place] Attending Clinician Unavailable [facility] Attending Clinician Unavailable HELEN QUINN Attending Clinician Unavailable HELEN QUINN Attending Clinician Unavailable Lab, Ang - Db Attending Clinician Unavailable Amrita Mcmanus Attending Clinician AMRITA KHOURY Attending Clinician Unavailable Marcela Perkins PA-C Attending Clinician MARCELA PERKINS Attending Clinician Unavailable 2, Adc Lab Attending Clinician Unavailable Alexx Ramos Attending Clinician Alexx MATA Attending Clinician Unavailable Goldie Castillo Attending Clinician [phone] GOLDIE FALL Attending Clinician Unavailable VLADIMIR NAGEL Attending Clinician Unavailable Lab, Adc Fam Pob I Attending Clinician Unavailable GREEN, TAYLER Attending Clinician Unavailable Jeison Craven Admitting Clinician JEISON MANDEL Admitting Clinician Unavailable Alexx MATA Admitting Clinician Unavailable Payers Payer Name Policy Type Policy Number Effective Date Expiration Date S sandoval [employer] [place] [id number] 2021 00:00:00 [place] CARTER BARR [id number] 2021 00:00:00 PHCS GENERIC [id number] 2019 00:00:00 COMMERCIAL [id number] 2018 NON-CONTRACT 00:00:00 GENERIC Problems Condition Condition Condition Status Onset Resolution Last Treating Co mments Source Name Details Category Date Date Treatment Clinician Date Gastroesop Gastroesop Disease Active 2021-05 Overview : Univers hageal hageal 1-21 Formattin ity of reflux reflux 00:00: g of this [place] disease, disease, 00 note Medica l unspecifie unspecifie might be Branch d whether d whether different esophagiti esophagiti from the s present s present original. Added automatic ally from request for surgery [id number] Vitamin D Vitamin D Disease Active Uni vers deficiency deficiency 9-14 it y of 00:00: [place] 00 Medical Branch Other Other Disease Active Univers general general 8-23 it[place] of counseling [place] advice and advice 00 Mn dical for for Branch contracept contracept stacy stacy management management Other Other Disease Active Univers depression depression 8-23 it y of 00:00: [place] 00 Medical Branch History of History of Disease Active Overview : Univers tubal tubal 3- Formattin ity of ligation ligation 00:00: g of this [place] as 00 note Medical might be Branch different from the original. 1wk postop. Noted erythema and tendernes s 1cm on left edge of wound. Keflex given 3 Streptococ Streptococ Disease Active U nivers cus B cus B 2-22 ity of carrier or carrier [place] suspected suspected 00 Medi didi carrier carrier Branch Obesity Obesity Disease Active Overview: Univ ers (BMI (BMI 7-21 Formattin ity of 30-39.9) 30-39.9) 00:00: g of this [place] 00 note Medical might be Branch different from the original. BMI at initial OB visit : 36.21 - diet and expected weight gain reviewedI CD10 Diagnosis Term Wafer Slicer Utility Allergies, Adverse Reactions, Alerts Allergy Allergy Status Severity Reaction(s) Onset Inactive Treating Comm ents Source Name Type Date Date Clinician NO KNOWN Drug Active Univers ALLERGIE Class ity of S [facility] Social History Social Habit Start Date Stop Date Quantity Comments Source History SDRI University o f Alcohol Frequency [facility] edical History [facility] University o f Alcohol Std Drinks [place] [facility] [place] History [facility] o f Alcohol Binge [place] [facility] al Branch History of tobacco Passive smoker Un iversity of use [facility] Exposure to 2022-03-02 2022-03-12 Not sure University SARS-CoV-2 (event) 00:00:00 07:08:00 [facility] Alcohol intake 2022-03-12 2022-03-12 0 /d University of 00:00:00 00:00:00 [facility] Tobacco use and 2022-01-12 2022-01-12 Smokeless Universit y of exposure 00:00:00 00:00:00 tobacco non-user [facility] Cigarettes smoked 2022-01-12 2022-01-12 Univers ity of current (pack per 00:00:00 00:00:00 ) - Reported Branch Cigarette 2022-01-12 2022-01-12 University of pack-years 00:00:00 00:00:00 [facility] Alcohol Comment 2012-08-27 2012-08-27 socially Universit y of 00:00:00 00:00:00 [facility] Sex [birth year] At [birth year] Universit y of 00:00:00 00:00:00 [facility] Smoking Status Start Date Stop Date Source Smokes tobacco daily 2022-01-12 00:00:00 Univers ity of [facility] Medications Ordered Filled Start Stop Current Ordering Indication Dosage Frequency Signature Comments Components Source Medication Medication Date Date Medication? Clinician (SIG) Name Name pantoprazol 2021-05 Yes [id number] 40mg Take 1 Univers e 40 mg EC 1-07 tablet by ity of tablet 00:00: mouth in [place] 00 the Medical morning. Branch pantoprazol 2021-05 Yes [id number] 40mg Take 1 Univers e 40 mg EC 1-07 tablet by ity of tablet 00:00: mouth in [place] 00 the Medical morning. [place] pantoprazol 2021-05 Yes 40mg Take 1 Univers e 40 mg EC 1-07 tablet by ity of tablet 00:00: mouth in [place] 00 the Medical morning. Branch pantoprazol 2021-05 Yes 40mg Take 1 Univers e 40 mg EC 1-07 tablet by ity of tablet 00:00: mouth in [place] 00 the Medical morning. Branch pantoprazol 2021-05 Yes 40mg Take 1 Univers e 40 mg EC 1-07 tablet by ity of tablet 00:00: mouth in [place] 00 the Medical morning. Branch pantoprazol 2021-05 Yes 40mg Take 1 Univers e 40 mg EC 1-07 tablet by ity of tablet 00:00: mouth in [place] 00 the Medical morning. [place] esomeprazol Yes [id number] 20mg Take 20 mg Univers e 20 mg 01-12 by mouth ity of capsule 00:00: daily [place] 00 before a Medical meal. [place] esomeprazol 2021- No [id number] 20mg Take 20 mg Univers e 20 mg 01-12 by mouth ity of capsule 00:00: 00:00 daily [place] 00 :00 before a Medical meal. [place] esomeprazol 2021- No [id number] 20mg Take 20 mg Univers e 20 mg 01-12 by mouth ity of capsule 00:00: 00:00 daily [place] 00 :00 before a Medical meal. [place] Immunizations Ordered Immunization Filled Immunization Date Status Commen ts Source Name Name SARS-COV-2 COVID-19 2020-10-14 Completed Unive rsity of MODERNA 12+ YRS 00:00:00 [place] [facility] ical VACCINE [place] SARS-COV-2 COVID-19 2020-10-14 Completed Unive rsity of MODERNA 12+ YRS 00:00:00 [place] [facility] ical VACCINE [place] SARS-COV-2 COVID-19 2020-10-14 Completed Unive rsity of MODERNA 12+ YRS 00:00:00 [place] Med ical VACCINE [place] SARS-COV-2 COVID-19 2020-10-14 Completed Unive rsity of MODERNA 12+ YRS 00:00:00 [place] [facility] ical VACCINE Branch SARS-COV-2 COVID-19 2020-10-14 Completed Unive rsity of MODERNA 12+ YRS 00:00:00 [place] [facility] ical VACCINE Branch SARS-COV-2 COVID-19 2020-10-14 Completed Unive rsity of MODERNA 12+ YRS 00:00:00 [place] [facility] ical VACCINE Branch SARS-COV-2 COVID-19 2020-10-14 Completed Unive rsity of MODERNA 12+ YRS 00:00:00 [place] [facility] ical VACCINE Branch SARS-COV-2 COVID-19 2020-09-16 Completed Unive rsity of MODERNA 12+ YRS 00:00:00 [place] [facility] ical VACCINE Branch SARS-COV-2 COVID-19 2020-09-16 Completed Unive rsity of MODERNA 12+ YRS 00:00:00 [place] Med ical VACCINE Branch SARS-COV-2 COVID-19 2020-09-16 Completed Unive rsity of MODERNA 12+ YRS 00:00:00 [place] [facility] ical VACCINE Branch SARS-COV-2 COVID-19 2020-09-16 Completed Unive rsity of MODERNA 12+ YRS 00:00:00 [place] [facility] ical VACCINE Branch SARS-COV-2 COVID-19 2020-09-16 Completed Unive rsity of MODERNA 12+ YRS 00:00:00 [place] [facility] ical VACCINE Branch SARS-COV-2 COVID-19 2020-09-16 Completed Unive rsity of MODERNA 12+ YRS 00:00:00 [place] [facility] ical VACCINE Branch SARS-COV-2 COVID-19 2020-09-16 Completed Unive rsity of MODERNA 12+ YRS 00:00:00 [facility] ical VACCINE Branch TDAP 2015-06-27 Completed University of 00:00:00 [facility] TDAP 2015-06-27 Completed University of 00:00:00 [facility] TDAP 2015-06-27 Completed University of 00:00:00 [facility] TDAP 2015-06-27 Completed University of 00:00:00 [facility] TDAP 2015-06-27 Completed University of 00:00:00 [facility] TDAP 2015-06-27 Completed University of 00:00:00 [facility] TDAP 2015-06-27 Completed University of 00:00:00 [facility] Influenza Virus 2015-02-16 Completed Universit y of Vaccine Quad IM 3+ 00:00:00 [facility] Influenza Virus 2015-02-16 Completed Universit y of Vaccine Quad IM 3+ 00:00:00 [facility] Influenza Virus 2015-02-16 Completed Universit y of Vaccine Quad IM 3+ 00:00:00 [facility] Influenza Virus 2015-02-16 Completed Universit y of Vaccine Quad IM 3+ 00:00:00 [facility] Influenza Virus 2015-02-16 Completed Universit y of Vaccine Quad IM 3+ 00:00:00 [facility] Influenza Virus 2015-02-16 Completed Universit y of Vaccine Quad IM 3+ 00:00:00 [facility] Influenza Virus 2015-02-16 Completed Universit y of Vaccine Quad IM 3+ 00:00:00 [facility] MMR 2014-05-01 Completed University of 00:00:00 [facility] MMR 2014-05-01 Completed University of 00:00:00 [facility] MMR 2014-05-01 Completed University of 00:00:00 [facility] MMR 2014-05-01 Completed University of 00:00:00 [facility] MMR 2014-05-01 Completed University of 00:00:00 [facility] MMR 2014-05-01 Completed University of 00:00:00 [facility] MMR 2014-05-01 Completed University of 00:00:00 [facility] Influenza Virus 2014-02-17 Completed Universit y of Vaccine (3+ yrs) 00:00:00 [facility] Influenza Virus 2014-02-17 Completed Universit y of Vaccine (3+ yrs) 00:00:00 [facility] Influenza Virus 2014-02-17 Completed Universit y of Vaccine (3+ yrs) 00:00:00 [facility] Influenza Virus 2014-02-17 Completed Universit y of Vaccine (3+ yrs) 00:00:00 [facility] Influenza Virus 2014-02-17 Completed Universit y of Vaccine (3+ yrs) 00:00:00 [facility] Influenza Virus 2014-02-17 Completed Universit y of Vaccine (3+ yrs) 00:00:00 [facility] Influenza Virus 2014-02-17 Completed Universit y of Vaccine (3+ yrs) 00:00:00 [facility] TDAP 2014-02-01 Completed University of 00:00:00 [facility] Branch TDAP 2014-02-01 Completed University of 00:00:00 [facility] Branch TDAP 2014-02-01 Completed University of 00:00:00 [facility] Branch TDAP 2014-02-01 Completed University of 00:00:00 [facility] Branch TDAP 2014-02-01 Completed University of 00:00:00 [facility] Branch TDAP 2014-02-01 Completed University of 00:00:00 [facility] Branch TDAP 2014-02-01 Completed University of 00:00:00 [facility] Influenza Virus 2012-02-05 Completed Universit y of Vaccine 00:00:00 [facility] Influenza Virus 2012-02-05 Completed Universit y of Vaccine 00:00:00 [facility] Influenza Virus 2012-02-05 Completed Universit y of Vaccine 00:00:00 [facility] Influenza Virus 2012-02-05 Completed Universit y of Vaccine 00:00:00 [facility] Influenza Virus 2012-02-05 Completed Universit y of Vaccine 00:00:00 [facility] Influenza Virus 2012-02-05 Completed Universit y of Vaccine 00:00:00 [facility] Influenza Virus 2012-02-05 Completed Universit y of Vaccine 00:00:00 [facility] Branch TDAP 2011-11-13 Completed University of 00:00:00 [facility] Branch TDAP 2011-11-13 Completed University of 00:00:00 [facility] Branch TDAP 2011-11-13 Completed University of 00:00:00 [facility] Branch TDAP 2011-11-13 Completed University of 00:00:00 [facility] Branch TDAP 2011-11-13 Completed University of 00:00:00 [facility] Branch TDAP 2011-11-13 Completed University of 00:00:00 [facility] Branch TDAP 2011-11-13 Completed University of 00:00:00 [facility] Branch Rubella 2011-08-07 Completed University of 00:00:00 [facility] Branch Rubella 2011-08-07 Completed University of 00:00:00 [facility] Branch Rubella 2011-08-07 Completed University of 00:00:00 [facility] Branch Rubella 2011-08-07 Completed University of 00:00:00 [facility] Branch Rubella 2011-08-07 Completed University of 00:00:00 [facility] Branch Rubella 2011-08-07 Completed University of 00:00:00 [facility] Rubella 2011-08-07 Completed University of 00:00:00 [facility] Influenza Virus 2010-02-28 Completed Universit y of Vaccine 00:00:00 [facility] Influenza Virus 2010-02-28 Completed Universit y of Vaccine 00:00:00 [facility] Influenza Virus 2010-02-28 Completed Universit y of Vaccine 00:00:00 [facility] Influenza Virus 2010-02-28 Completed Universit y of Vaccine 00:00:00 [facility] Influenza Virus 2010-02-28 Completed Universit y of Vaccine 00:00:00 [facility] Influenza Virus 2010-02-28 Completed Universit y of Vaccine 00:00:00 [facility] Influenza Virus 2010-02-28 Completed Universit y of Vaccine 00:00:00 [facility] HPV 2009-02-23 Completed University of 00:00:00 [facility] HPV 2009-02-23 Completed University of 00:00:00 [facility] HPV 2009-02-23 Completed University of 00:00:00 [facility] HPV 2009-02-23 Completed University of 00:00:00 [facility] HPV 2009-02-23 Completed University of 00:00:00 [facility] HPV 2009-02-23 Completed University of 00:00:00 [facility] HPV 2009-02-23 Completed University of 00:00:00 [facility] HEPATITIS A 2007-12-18 Completed University of 00:00:00 [facility] HPV 2007-12-18 Completed University of 00:00:00 [facility] Meningococcal 2007-12-18 Completed University of Vaccine 00:00:00 [facility] Varicella 2007-12-18 Completed University of (varivax)(chicken 00:00:00 [place] [facility] pox) Branch HEPATITIS A 2007-12-18 Completed University of 00:00:00 [facility] HPV 2007-12-18 Completed University of 00:00:00 [facility] Meningococcal 2007-12-18 Completed University of Vaccine 00:00:00 [facility] Varicella 2007-12-18 Completed University of (varivax)(chicken 00:00:00 [place] M edical pox) Branch HEPATITIS A 2007-12-18 Completed University of 00:00:00 [facility] HPV 2007-12-18 Completed University of 00:00:00 [facility] Meningococcal 2007-12-18 Completed University of Vaccine 00:00:00 [facility] Varicella 2007-12-18 Completed University of (varivax)(chicken 00:00:00 [place] M edical pox) Branch HEPATITIS A 2007-12-18 Completed University of 00:00:00 [facility] HPV 2007-12-18 Completed University of 00:00:00 [facility] Meningococcal 2007-12-18 Completed University of Vaccine 00:00:00 [facility] Varicella 2007-12-18 Completed University of (varivax)(chicken 00:00:00 [place] M [place]ical pox) Branch HEPATITIS A 2007-12-18 Completed University of 00:00:00 [facility] HPV 2007-12-18 Completed University of 00:00:00 [facility] Meningococcal 2007-12-18 Completed University of Vaccine 00:00:00 [facility] Varicella 2007-12-18 Completed University of (varivax)(chicken 00:00:00 [place] M edical pox) Branch HEPATITIS A 2007-12-18 Completed University of 00:00:00 [facility] HPV 2007-12-18 Completed University of 00:00:00 [facility] Meningococcal 2007-12-18 Completed University of Vaccine 00:00:00 [facility] Varicella 2007-12-18 Completed University of (varivax)(chicken 00:00:00 [place] M edical pox) Branch HEPATITIS A 2007-12-18 Completed University of 00:00:00 [facility] HPV 2007-12-18 Completed University of 00:00:00 [facility] Meningococcal 2007-12-18 Completed University of Vaccine 00:00:00 [facility] Varicella 2007-12-18 Completed University of (varivax)(chicken 00:00:00 [place] M edical pox) [place] Vital Signs Vital Name Observation Time Observation Value Comments Source Systolic blood 2022-03-12 14:27:00 130 mm[Hg] Univer sity of pressure [facility] Diastolic blood 2022-03-12 14:27:00 84 mm[Hg] Unive rsity of pressure [facility] Heart rate 2022-03-12 14:27:00 69 /min [facility] Body temperature 2022-03-12 14:27:00 36.39 [facility] height 2022-03-12 14:27:00 162.6 cm [facility] Body weight 2022-03-12 14:27:00 103.783 kg [facility] BMI 2022-03-12 14:27:00 39.27 kg/m2 [facility] Procedures Procedure Date / Time Performed Performing Clinician Cam laura FIBROSCAN 2022-04-10 05:40:00 Jeison Mandel o nasreen [facility] ASSIGNMENT OF BENEFITS 2022-04-09 20:41:01 Doctor Unassigned, No [facility] Encounters Start End Encounter Admission Attending Care Care Encounter Source Date/Time Date/Time Type Type Clinicians Facility Department ID 2022-05-28 2022-05-28 Outpatient R TEQUILA [facility] [id number] Univers 10:00:00 10:00:00 JEISON noriega [facility] [place] [facility] 2022-04-09 2022-04-09 Surgery Tequila [facility] [id number] Univers 15:40:00 16:20:00 Jeison PAL[place]IA 350.1.13.10 it y of SCIENCES 4.2.7.2.686 [place] BLDG [phone] [facility] [address] [place] 2022-04-09 2022-04-09 [facility] Maldonado Barbosa [facility] 1.2. [id number] Univers 14:41:00 15:15:00 Encounter TequilaJeison 350.1.13.10 ity of SCIENCES 4.2.7.2.686 [place] BLDG [id number] [facility] [address] [place] 2022-04-09 2022-04-09 Outpatient R CHELSEY [facility] GIE [id number] Univers 14:41:00 15:15:00 MALDONADO noriega o [facility] 2022-04-09 2022-04-09 Orders Doctor LINDO [id number] Univers 00:00:00 00:00:00 Only UnassignedCESARIO 350.1.13.10 ity of [facility] 4.2.7.2.686 [place] as [id number] [facility] [address] [place] 2022-03-12 2022-03-12 Tie Bucker [facility] UNIVERSIT [id number] Univers 09:15:00 09:30:00 Visit Jeison Mandel HEALTH [id number] ity of CL[place] 4[place]2.[place].2.[place] [id number] [facility] [address] [place] 2022-03-12 2022-03-12 Office ADENIKE MandelIT [id number] Univers 08:00:00 09:00:00 Visit Jeison Amanda HEALTH 350.1.13.10 i ty of CL[place] 4[place]2.[place].2.[place] [id number] [facility] [address] [place] 2022-03-12 2022-03-12 Outpatient R TEQUILA [facility] [id number] Univers 08:00:00 08:00:00 JEISON hari [facility] [place] [facility] 2022-01-15 2022-01-15 Tie Bucker Lab, Ang - Db [facility] [id number] Univers 09:30:00 09:49:56 Visit Amrita Khoury HEALTH 350.1.13.10 ity of [place] 4.2.7.2.686 [place] CELSO?BLEA [id number] [facility] [address] [place] MEDICAL OFFICE [facility] 2022-01-15 2022-01-15 [facility]patient [facility] [id number] Univers 09:30:00 09:30:00 AMRITA ity [facility] [place] [facility] 2022-01-12 2022-01-12 Outpatient [facility] [id number] Univers 14:22:20 23:59:00 AMRITA noriega [facility] 2022-01-12 2022-01-12 Outpatient [facility] [id number] Univers 13:30:00 14:19:12 [facility] 2022-01-12 2022-01-12 Office [facility] [id number] Univers 13:30:00 14:19:12 Visit Amrita Peterson HEALTH 350.1.13.10 i ty of [place] 4.2.7.2.686 [place] CELSO?BLEA [id number] [address] MEDICAL OFFICE BUILDING 2022-01-12 2022-01-12 Telephone [facility] [id number] Univers 00:00:00 00:00:00 Amrita LLOYD 350.1.13.10 i ty of [facility] 4.2.7.2.686 [place] CELSO?BLEA [id number] [address] 2022-01-02 2022-01-02 [facility] 1.2.840.114 [id number] Univers 00:00:00 00:00:00 Marcela WEINSTEINМАРИНА 350.1.13.10 i ty of [facility] 4.2.7.2.686 [place] [id number] [facility] [address] [facility] 2022-01-01 2022-01-01 [facility] [id number] Univers 15:08:37 23:59:00 Encounter Marcelaflex [place] 350.1.13.10 ity of [place] 4.2.7.2.686 [place] [id number] [facility] [address] [place] 2022-01-01 2022-01-01 Outpatient R [facility] [id number] Univers 15:08:05 15:07:00 MARCELA ity [facility] [place] [facility] 2022-01-01 2022-01-01 [facility] [id number] [id number] Univers 15:00:00 15:07:00 Encounter Marcela [place] 350.1.13.10 ity of [facility] 4.2.7.2.686 [place] [id number] [facility] [address] [place] [address] 2021-12-25 2021-12-25 Tie Bucker 2, Adc Lab [facility] [id number] Univers 11:00:00 11:15:00 Visit Marcela Perkins 350.1.13.10 ity of [facility] 4.2.7.2.686 [place] [id number] [facility] [address] [facility] 2021-12-25 2021-12-25 Outpatient [facility] [id number] Univers 11:00:00 11:00:00 MARCELA charley [facility] [place] [facility] 2021-12-25 2021-12-25 Office [facility] [id number] Univers 09:45:00 10:44:02 Visit Marcela [place] 350.1.13.10 i ty of [place] 4.2.7.2.686 [place] [id number] Mn dical [address] 2021-12-25 2021-12-25 Outpatient R [facility] [id number] Univers 09:45:00 10:44:02 MARCELA [facility] 2021-12-25 2021-12-25 Orders Doctor BELGICA 1.2.840.114 [id number] Univers 00:00:00 00:00:00 Only Unassigned, CESARIO 350.1.13.10 ity of [place] 4.2.7.2.686 [place] as [phone] [address] 2021-02-13 2021-02-13 Emergency Adolfo [facility] 1.2.840.114 [id number] Univers 11:58:00 14:59:00 Johnna [place] 350.1.13.10 i ty of [place] 4.2.7.2.686 [place] [id number] [facility] [address] [place] 2021-02-13 2021-02-13 Emergency X ADOLFO, K [facility] FACILITY ERT [id number] Univers 11:58:00 14:59:00 ity of [facility] 2021-02-13 2021-02-13 Orders Doctor BELGICA [id number] Univers 00:00:00 00:00:00 Only Unassigned, CESARIO [id number] ity of [facility] [id number] Barry as [phone] [address] 2020-12-30 2020-12-30 [facility]phone [facility] [id number] Univers 00:00:00 00:00:00 Goldie Celaya STAFF RN [id number] ity of [facility] [id number] Barry as MATERNAL [phone] [facility] & [address] 2020-12-26 2020-12-26 Office Jak [facility] [id number] Univers 09:41:31 11:28:17 Visit Goldie Celaya STAFF RN [id number] [facility] [id number] Barry as MATERNAL [phone] [facility] & CHILD [address] [place] [address] 2020-12-26 2020-12-26 Outpatient R JAK [facility] [id number] Univers 09:30:00 09:30:00 GOLDIE noriega o f [facility] 2020-11-28 2020-11-28 Outpatient R SHONA [facility] [id number] Univers 15:40:00 15:40:00 VLADIMIR noriega [facility] 2019-11-16 2019-11-16 Laboratory Lab, [facility] [id number] 14:36:15 14:56:15 Only Fam [facility] [id number] [place] [id number] Professio [phone] nal 044 Office [address] One 2019-11-16 2019-11-16 Outpatient R BRYANNA [facility] [id number] Univers 14:20:00 14:20:00 TAYLER noriega [facility] 2019-11-16 2019-11-16 Letter Doctor LINDO [id number] 00:00:00 00:00:00 (Out) Unassigned, CESARIO [id number] [facility] [phone] [id number] Results This patient has no known results.
--- NOTE | 2022-05-25 21:34 | EDPHYS ---
Physician Documentation [facility] Name: Bianca Zamora Age: 31 yrs Sex: Female : 1990 Arrival Date: 05/25/2022 Time: 19:58 Bed 18 Private MD: ED Physician Jae Valdovinos HPI: 05/25 20:35 This 31 yrs old Female presents to ER via Ambulatory with complaints of cp Toothache, Facial Swelling. 20:35 The patient presents with pain. cp 20:35 The problem is located in the left upper jaw. Onset: The symptoms/episode cp began/occurred today. Duration: The symptoms are continuous, and are steadily getting worse. Associated signs and symptoms: Pertinent positives: swelling, Pertinent negatives: dysphagia, fever, inability to eat. Severity of symptoms: in the emergency department the symptoms are unchanged, despite home interventions. 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 - Social history:: Smoking status: Patient denies any tobacco usage or history of. Patient/guardian denies using alcohol, street drugs. ROS: 20:40 Constitutional: Negative for body aches, chills, fever, poor PO intake. cp 20:40 Eyes: Negative for injury, pain, redness, and discharge. cp 20:40 ENT: Positive for dental pain, Negative for drainage from ear(s), ear pain, sore throat, difficulty swallowing, difficulty handling secretions. 20:40 Cardiovascular: Negative for chest pain, palpitations. 20:40 Respiratory: Negative for cough, shortness of breath, wheezing. 20:40 Abdomen/GI: Negative for abdominal pain, vomiting, diarrhea, constipation. 20:40 Neuro: Negative for altered mental status, dizziness, headache, weakness. 20:40 All other systems are negative. Exam: 20:45 Constitutional: The patient appears in no acute distress, alert, awake, non-toxic, well cp developed, well nourished, obese, in obvious pain, uncomfortable. 20:45 Head/Face: Normocephalic, atraumatic. cp 20:45 Eyes: Periorbital structures: appear normal, Conjunctiva: normal, no exudate, no injection, Sclera: no appreciated abnormality, Lids and lashes: appear normal, bilaterally. 20:45 ENT: External ear(s): are unremarkable, Ear canal(s): are normal, clear, TM's: dullness, bilaterally, Nose: is normal, Mouth: Lips: moist, Oral mucosa: pink and intact, moist, Posterior pharynx: Airway: no evidence of obstruction, patent, Tonsils: are normal in appearance, swelling, is not appreciated, erythema, is not appreciated, exudate, is not appreciated, Dental exam: abscess, is not appreciated, dental caries, that is moderate, diffusely, fractured teeth are noted, specifically the upper left second molar (#15), gum swelling, that is mild, specifically in the upper left second molar (#15), pain, that is severe, specifically in the upper left second molar (#15), Voice: is normal. 20:45 Neck: ROM/movement: is normal, is supple, without pain, no range of motions limitations, no meningismus. 20:45 Chest/axilla: Inspection: normal. 20:45 Cardiovascular: Rate: normal. 20:45 Respiratory: the patient does not display signs of respiratory distress, Respirations: normal, no use of accessory muscles, no retractions, labored breathing, is not present, Breath sounds: are clear throughout, no decreased breath sounds, no stridor, no wheezing. 20:45 Abdomen/GI: Inspection: abdomen appears normal, Palpation: abdomen is soft and non-tender, in all quadrants. Vital Signs: 20:11 BP 128 / 87; Pulse 84; Resp 16; Pulse Ox 98% on R/A; ha1 20:12 BP 128 / 87; Pulse 84; Resp 16 S; Temp 99.1(O); Pulse Ox 100% on R/A; Weight 104.33 kg lg3 (R); Height 5 ft. 4 in. (162.56 cm) (R); Pain 10/10; 21:10 BP 123 / 82; Pulse 80; Resp 16; Pulse Ox 97% on R/A; ha1 21:54 BP 111 / 56; Pulse 80; Resp 16 S; Pulse Ox 98% ; ha1 20:12 Body Mass Index 39.48 (104.33 kg, 162.56 cm) lg3 MDM: 20:11 Patient medically screened. [facility] 21:33 Data reviewed: vital signs, nurses notes, and as a result, I will discharge patient. cp 21:33 Consideration of Admission/Observation Escalation of care including cp admission/observation considered. I considered the following discharge prescriptions or medication management in the emergency department Medications were administered in the Emergency Department. See MAR. Test considered but Not performed: Other Details CT facial bones. Counseling: I had a detailed discussion with the patient and/or guardian regarding: the historical points, exam findings, and any diagnostic results supporting the discharge/admit diagnosis. Response to treatment: the patient's symptoms have markedly improved after treatment, and as a result, I will discharge patient. Administered Medications: 21:30 Drug: morphine 6 mg Route: IM; Site: right ventrogluteal; ha1 21:55 Follow up: Response: No adverse reaction; Pain is decreased; RASS: Alert and Calm (0) ha1 21:38 Drug: Clindamycin 600 mg Route: PO; ha1 21:55 Follow up: Response: No adverse reaction ha1 21:38 Drug: Ibuprofen 800 mg Route: PO; ha1 21:55 Follow up: Response: No adverse reaction ha1 Disposition Summary: 05/25/22 21:33 Discharge Ordered Location: Home cp Problem: new cp Symptoms: have improved cp Condition: Stable cp Diagnosis - Disorder of teeth and supporting structures, unspecified cp Followup: cp - With: Aleksander Aguilar DDS - When: 2 - 3 days - Reason: Recheck today's complaints Discharge Instructions: - Discharge Summary Sheet cp - Dental Pain cp Forms: - Medication Reconciliation Form cp - Thank You Letter cp - Antibiotic Education cp - Prescription Opioid Use cp Prescriptions: - Clindamycin HCl 300 mg Oral Capsule - take 1 capsule by ORAL route every 6 hours for 10 days; 40 capsule; Refills: 0, cp Product Selection Permitted - Diclofenac Sodium 75 mg Oral tablet,delayed release (DR/EC) - take 1 tablet by ORAL route 2 times per day; 20 tablet; Refills: 0, Product cp Selection Permitted Signatures: Jae Valdovinos MD MD cha Page, Corey, PA PA cp Gibson, Lacie, RN RN lg3 Destinee Marie, RN RN ha1
--- NOTE | 2022-05-25 21:34 | ER ---
Nurse's Notes [facility] Name: Bianca Zamora Age: 31 yrs Sex: Female : 1990 Arrival Date: 05/25/2022 Time: 19:58 Bed 18 Private MD: Diagnosis: Disorder of teeth and supporting structures, unspecified Presentation: 05/25 20:12 Chief complaint: Patient states: left upper tooth pain starting today. i have done lg3 everything for the pain and nothing helps. i have seen the dentist but they wont pull it. Coronavirus screen: Client denies travel out of the [place] in the last 14 days. At this time, the client does not indicate any symptoms associated with coronavirus-19. Ebola Screen: No symptoms or risks identified at this time. Initial Sepsis Screen: Does the patient meet any 2 criteria? No. Patient's initial sepsis screen is negative. Does the patient have a suspected source of infection? No. Patient's initial sepsis screen is negative. Risk Assessment: Do you want to hurt yourself or someone else? Patient reports no desire to harm self or others. Onset of symptoms was May 25, 2022. 20:12 Method Of Arrival: Ambulatory lg3 20:12 Acuity: LOAN 4 lg3 Triage Assessment: 20:16 General: Appears in no apparent distress. uncomfortable, Behavior is cooperative, lg3 crying, restless. Pain: Complains of pain in mouth Pain currently is 10 out of 10 on a pain scale. Alleviated by nothing. Noted to be agitated, crying, grimacing, guarding, moaning. EENT: Reports pain in mouth. Neuro: No deficits noted. Weller Agitation-Sedation Scale (RASS): 0 - Alert and Calm Level of Consciousness is awake, alert, obeys commands, Oriented to person, place, time, situation. Cardiovascular: No deficits noted. Denies chest pain, shortness of breath, Capillary refill < 3 seconds Clubbing of nail beds is absent JVD is absent Patient's skin is warm and dry. Respiratory: No deficits noted. Airway is patent Trachea midline Respiratory effort is even, unlabored, Respiratory pattern is regular, symmetrical. GI: No deficits noted. No signs and/or symptoms were reported involving the gastrointestinal system. : No deficits noted. No signs and/or symptoms were reported regarding the genitourinary system. Derm: No deficits noted. No signs and/or symptoms reported regarding the dermatologic system. Skin is intact, is healthy with good turgor, Skin is dry, Skin is normal. Musculoskeletal: No deficits noted. No signs and/or symptoms reported regarding the musculoskeletal system. Circulation, motion, and sensation intact. Range of motion: intact in all extremities. 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 - Social history:: Smoking status: Patient denies any tobacco usage or history of. Patient/guardian denies using alcohol, street drugs. Screenin:00 Abuse screen: Denies threats or abuse. Denies injuries from another. Nutritional ha1 screening: No deficits noted. Tuberculosis screening: No symptoms or risk factors identified. Assessment: 20:34 General: Appears uncomfortable, Behavior is calm, cooperative. Pain: Complains of pain ha1 in left side of jaw Pain does not radiate. Pain currently is 10 out of 10 on a pain scale. Neuro: Level of Consciousness is awake, alert, obeys commands, Oriented to person, place, time, situation. Cardiovascular: Patient's skin is warm and dry. Respiratory: Airway is patent Trachea midline Respiratory effort is even, unlabored, Respiratory pattern is regular, symmetrical. EENT: Reports pain in left jaw. 21:51 Reassessment: Patient and/or family updated on plan of care and expected duration. Pain ha1 level reassessed. Patient is alert, oriented x 3, equal unlabored respirations, skin warm/dry/pink. Patient states feeling better. Patient states symptoms have improved. Vital Signs: 20:11 BP 128 / 87; Pulse 84; Resp 16; Pulse Ox 98% on R/A; ha1 20:12 BP 128 / 87; Pulse 84; Resp 16 S; Temp 99.1(O); Pulse Ox 100% on R/A; Weight 104.33 kg lg3 (R); Height 5 ft. 4 in. (162.56 cm) (R); Pain 10/10; 21:10 BP 123 / 82; Pulse 80; Resp 16; Pulse Ox 97% on R/A; ha1 21:54 BP 111 / 56; Pulse 80; Resp 16 S; Pulse Ox 98% ; ha1 20:12 Body Mass Index 39.48 (104.33 kg, 162.56 cm) lg3 ED Course: 19:58 Patient arrived in ED. as 20:08 Jae Alvarado PA is PHCP. cp 20:08 Jae Valdovinos MD is Attending Physician. cp 20:11 Patient has correct armband on for positive identification. Placed in gown. Bed in low ha1 position. Call light in reach. Side rails up X 1. Side rails up X2. Adult w/ patient. 20:16 Triage completed. lg3 20:16 Arm band placed on right wrist. lg3 20:33 Destinee Marie RN is Primary Nurse. ha1 21:32 Aleksander Aguilar DDS is Referral Physician. cp 22:24 No provider procedures requiring assistance completed. Patient did not have IV access ha1 during this emergency room visit. Administered Medications: 21:30 Drug: morphine 6 mg Route: IM; Site: right ventrogluteal; ha1 21:55 Follow up: Response: No adverse reaction; Pain is decreased; RASS: Alert and Calm (0) ha1 21:38 Drug: Clindamycin 600 mg Route: PO; ha1 21:55 Follow up: Response: No adverse reaction ha1 21:38 Drug: Ibuprofen 800 mg Route: PO; ha1 21:55 Follow up: Response: No adverse reaction ha1 Medication: 22:26 VIS not applicable for this client. ha1 Outcome: 21:33 Discharge ordered by . cp 22:25 Discharged to home ambulatory, with family. ha1 22:25 Condition: stable 22:25 Discharge instructions given to patient, family, Instructed on discharge instructions, follow up and referral plans. medication usage, Demonstrated understanding of instructions, follow-up care, medications. 22:26 Patient left the ED. ha1 Signatures: Janelle Fowler as Jae Alvarado PA PA cp Lizzie Baxter RN RN 3 Destinee Marie RN RN ha1
[2022-05-25] MEDS ORDERED: MORPHINE 4 MG/ML SYR ONE (21:37)
[2022-05-25] MEDS ORDERED: MORPHINE 2 MG/ML SYR ONE (21:41)
[2022-05-25] MEDS ORDERED: IBUPROFEN 400 MG TAB ONE (21:42)
[2022-05-25 22:42] VITALS: TEMP 99.1
[2022-05-25 22:44] VITALS: BP 111/56; O2SAT 98
[2022-05-26] MEDS ORDERED: METOCLOPRAMIDE 10 MG/2mL INJ ONE (00:24)
[2022-05-26] MEDS ORDERED: DIPHENHYDRAMINE 50 MG/ML VIAL ONE (00:25)
[2022-05-26] MEDS ORDERED: KETOROLAC 30 MG/ML INJ ONE (00:25)
[2022-05-26] MEDS ORDERED: NA CHLORIDE 0.9% 1,000 ML ONE (00:25)
== END 2022-05-25 22:26 | disposition home or self-care (01) ==
LOC: ER 19:56
DX: K08.89 Other specified disorders of teeth and supporting structures (principal)
CPT/HCPCS: 96372; 99283; J2270

== ENCOUNTER 2022-12-26 13:26 | Emergency (ER) | payer BC, OTHER ==
--- OUTSIDE RECORDS SUMMARY | 2022-12-26 13:31 | XMS REPORT | Continuity of Care Document ---
:1990 Author Organization [facility] t Address [address] [facility]. [address] [place] [address] Care Team Providers Name Role Phone AMRITA KHOURY Primary Care Physician Unavailable OSMAN CAMACHO Attending Clinician Unavailable OSMAN CAMACHO Attending Clinician Unavailable JEISON MANDEL Attending Clinician Unavailable Jeison Craven Attending Clinician MALDONADO BARBOSA Attending Clinician Unavailable Maldonado Barbosa DO Attending Clinician Doctor Unassigned, [place] Attending Clinician Unavailable [facility] Attending Clinician Unavailable HELEN QUINN Attending Clinician Unavailable HELEN QUINN Attending Clinician Unavailable Lab, Ang - Db Attending Clinician Unavailable Amrita Mcmanus Attending Clinician AMRITA KHOURY Attending Clinician Unavailable Marcela Perkins PA-C Attending Clinician MARCELA PERKINS Attending Clinician Unavailable 2, [facility] Attending Clinician Unavailable Alexx Ramos Attending Clinician Alexx MATA Attending Clinician Unavailable Goldie Castillo Attending Clinician [phone] [address] Attending Clinician Unavailable VLADIMIR NAGEL Attending Clinician Unavailable Lab, Adc Fam Pob I Attending Clinician Unavailable TAYLER GOULD Attending Clinician Unavailable JEISON MANDEL Admitting Clinician Unavailable Jeison Craven Admitting Clinician Alexx MATA Admitting Clinician Unavailable Payers Payer Name Policy Type Policy Number Effective Date Expiration Date S sandoval [employer] [place] [id number] 2021 00:00:00 [facility] MOMO [id number] 2021 00:00:00 PHCS GENERIC [id number] 2019 00:00:00 COMMERCIAL [id number] 2018 NON-CONTRACT 00:00:00 GENERIC Problems Condition Condition Condition Status Onset Resolution Last Treating Co mments Source Name Details Category Date Date Treatment Clinician Date Gastroesop Gastroesop Disease Active 2021-05 Overview : Univers hageal hageal 1-21 Formattin ity of reflux reflux 00:00: g of this [place] disease, disease, 00 note Medica l unspecifie unspecifie might be Branch d whether d whether different esophagiti esophagiti from the s present s present original. Added automatic ally from request for surgery [id number] Vitamin D Vitamin D Disease Active Uni vers deficiency deficiency 9-14 it y of 00:00: [place] 00 Medical Branch Other Other Disease Active Univers general general 8-23 ity of counseling [place] and advice and advice 00 Ca dical for for Branch contracept contracept stacy [...] on left edge of wound. 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 Allergies, Adverse Reactions, Alerts Allergy Allergy Status Severity Reaction(s) Onset Inactive Treating Comm ents Source Name Type Date Date Clinician NO KNOWN Drug Active Univers ALLERGIE Class ity of S [facility] [place] [facility] Social History Social Habit Start Date Stop Date Quantity Comments Source History SDAK University o f Alcohol Frequency [facility] edical History SDAK University o f Alcohol Std Drinks [place] [facility] [place] History [facility] University o f Alcohol Binge [place] Medic al [place] History of tobacco Passive smoker Un iversity of use [facility] [place] [facility] Exposure to 2022-03-02 2022-03-12 Not sure University SARS-CoV-2 (event) 00:00:00 07:08:00 [facility] [place] [facility] Alcohol intake 2022-03-12 2022-03-12 0 /d University of 00:00:00 00:00:00 [facility] [place] [facility] Tobacco use and 2022-01-12 2022-01-12 Smokeless Universit y of exposure 00:00:00 00:00:00 tobacco non-user [facility] Cigarettes smoked 2022-01-12 2022-01-12 Univers ity of current (pack per 00:00:00 00:00:00 ) - Reported Branch Cigarette 2022-01-12 2022-01-12 University of pack-years 00:00:00 00:00:00 [facility] [place] [facility] Alcohol Comment 2012-08-27 2012-08-27 socially Universit y of 00:00:00 00:00:00 [facility] [place] [facility] Sex Ass[birth year] At [birth year] Universit y of 00:00:00 00:00:00 [facility] [place] [facility] Smoking Status Start Date Stop Date Source Smokes tobacco daily 2022-01-12 00:00:00 Univers ity of [facility] [place] [facility] Medications Ordered Filled Start Stop Current Ordering Indication Dosage Frequency Signature Comments Components Source Medication Medication Date Date Medication? Clinician (SIG) Name Name pantoprazol 2021-05 Yes [id number] 40mg Take 1 Univers e 40 mg EC 1-07 tablet by ity of tablet 00:00: mouth in [place] 00 the Medical morning. Branch pantoprazol 2021-05 Yes [id number] 40mg Take 1 Univers e 40 mg EC 1-07 tablet by ity of tablet 00:00: mouth in [place] 00 the Medical morning. Branch pantoprazol 2021-05 Yes 40mg Take 1 Univers e 40 mg EC 1-07 tablet by ity of tablet 00:00: mouth in [place] 00 the Medical morning. Branch pantoprazol 2021-05 Yes 40mg Take 1 Univers e 40 mg EC 1-07 tablet by ity of tablet 00:00: mouth in [place] 00 the Medical morning. Branch pantoprazol 2021-05 Yes 40mg Take 1 Univers e 40 mg EC 1-07 tablet by ity of tablet 00:00: mouth in [place] 00 the Medical morning. Branch pantoprazol 2021-05 Yes 40mg Take 1 Univers e 40 mg EC 1-07 tablet by ity of tablet 00:00: mouth in [place] 00 the Medical morning. [place] esomeprazol Yes [id number] 20mg Take 20 mg Univers e 20 mg 01-12 by mouth ity of capsule 00:00: daily [place] 00 before a Medical meal. [place] esomeprazol 2021- No [id number] 20mg Take 20 mg Univers e 20 mg 01-12 by mouth ity of capsule 00:00: 00:00 daily [place] 00 :00 before a Medical meal. Branch esomeprazol 2021- No [id number] 20mg Take 20 mg Univers e 20 mg 01-12 by mouth ity of capsule 00:00: 00:00 daily [place] 00 :00 before a Medical meal. [place] Immunizations Ordered Immunization Filled Immunization Date Status Commen ts Source Name Name SARS-COV-2 COVID-19 2020-10-14 Completed Unive rsity of MODERNA 12+ YRS 00:00:00 [place] Med ical VACCINE [place] SARS-COV-2 COVID-19 2020-10-14 Completed Unive rsity of MODERNA 12+ YRS 00:00:00 [place] Med ical VACCINE [place] SARS-COV-2 COVID-19 2020-10-14 Completed Unive rsity of MODERNA 12+ YRS 00:00:00 [place] Med ical VACCINE [place] SARS-COV-2 COVID-19 2020-10-14 Completed Unive rsity of [...] YRS 00:00:00 [place] Med ical VACCINE Branch TDAP 2015-06-27 Completed University of 00:00:00 [facility] [place] [facility] TDAP 2015-06-27 Completed University of 00:00:00 [facility] [place] [facility] TDAP 2015-06-27 Completed University of 00:00:00 [facility] [place] [facility] TDAP 2015-06-27 Completed University of 00:00:00 [facility] [place] [facility] TDAP 2015-06-27 Completed University of 00:00:00 [facility] [place] [facility] TDAP 2015-06-27 Completed University of 00:00:00 [facility] [place] [facility] TDAP 2015-06-27 Completed University of 00:00:00 [facility] [place] [facility] Influenza Virus 2015-02-16 Completed Universit y of Vaccine Quad IM 3+ 00:00:00 [facility] Influenza Virus 2015-02-16 Completed Universit y of Vaccine Quad IM 3+ 00:00:00 [facility] Influenza Virus 2015-02-16 Completed Universit y of Vaccine Quad IM 3+ 00:00:00 [facility] Influenza Virus 2015-02-16 Completed Universit y of Vaccine Quad IM 3+ 00:00:00 [facility] Influenza Virus 2015-02-16 Completed Universit y of Vaccine Quad IM 3+ 00:00:00 [facility] Influenza Virus 2015-02-16 Completed Universit y of Vaccine Quad IM 3+ 00:00:00 [facility] Influenza Virus 2015-02-16 Completed Universit y of Vaccine Quad IM 3+ 00:00:00 [facility] MMR 2014-05-01 Completed University of 00:00:00 [facility] [place] [facility] MMR 2014-05-01 Completed University of 00:00:00 [facility] [place] [facility] MMR 2014-05-01 Completed University of 00:00:00 [facility] [place] [facility] MMR 2014-05-01 Completed University of 00:00:00 [facility] [place] [facility] MMR 2014-05-01 Completed University of 00:00:00 [facility] [place] [facility] MMR 2014-05-01 Completed University of 00:00:00 [facility] [place] [facility] MMR 2014-05-01 Completed University of 00:00:00 [facility] [place] [facility] Influenza Virus 2014-02-17 Completed Universit y of Vaccine (3+ yrs) 00:00:00 [facility] Influenza Virus 2014-02-17 Completed Universit y of Vaccine (3+ yrs) 00:00:00 [facility] Influenza Virus 2014-02-17 Completed Universit y of Vaccine (3+ yrs) 00:00:00 [facility] Influenza Virus 2014-02-17 Completed Universit y of Vaccine (3+ yrs) 00:00:00 [facility] Influenza Virus 2014-02-17 Completed Universit y of Vaccine (3+ yrs) 00:00:00 [facility] Influenza Virus 2014-02-17 Completed Universit y of Vaccine (3+ yrs) 00:00:00 [facility] Influenza Virus 2014-02-17 Completed Universit y of Vaccine (3+ yrs) 00:00:00 [facility] TDAP 2014-02-01 Completed University of 00:00:00 [facility] [place] [facility] TDAP 2014-02-01 Completed University of 00:00:00 [facility] [place] [facility] TDAP 2014-02-01 Completed University of 00:00:00 [facility] [place] [facility] TDAP 2014-02-01 Completed University of 00:00:00 [facility] [place] [facility] TDAP 2014-02-01 Completed University of 00:00:00 [facility] [place] [facility] TDAP 2014-02-01 Completed University of 00:00:00 [facility] [place] [facility] TDAP 2014-02-01 Completed University of 00:00:00 [facility] [place] [facility] Influenza Virus 2012-02-05 Completed Universit y of Vaccine 00:00:00 [facility] [place] [facility] Influenza Virus 2012-02-05 Completed Universit y of Vaccine 00:00:00 [facility] [place] [facility] Influenza Virus 2012-02-05 Completed Universit y of Vaccine 00:00:00 [facility] [place] [facility] Influenza Virus 2012-02-05 Completed Universit y of Vaccine 00:00:00 [facility] [place] [facility] Influenza Virus 2012-02-05 Completed Universit y of Vaccine 00:00:00 [facility] [place] [facility] Influenza Virus 2012-02-05 Completed Universit y of Vaccine 00:00:00 [facility] [place] [facility] Influenza Virus 2012-02-05 Completed Universit y of Vaccine 00:00:00 [facility] [place] [facility] TDAP 2011-11-13 Completed University of 00:00:00 [facility] [place] [facility] TDAP 2011-11-13 Completed University of 00:00:00 [facility] [place] [facility] TDAP 2011-11-13 Completed University of 00:00:00 [facility] [place] [facility] TDAP 2011-11-13 Completed University of 00:00:00 [facility] [place] [facility] TDAP 2011-11-13 Completed University of 00:00:00 [facility] [place] [facility] TDAP 2011-11-13 Completed University of 00:00:00 [facility] [place] [facility] TDAP 2011-11-13 Completed University of 00:00:00 [facility] [place] [facility] Rubella 2011-08-07 Completed University of 00:00:00 [facility] [place] [facility] Rubella 2011-08-07 Completed University of 00:00:00 [facility] [place] [facility] Rubella 2011-08-07 Completed University of 00:00:00 [facility] [place] [facility] Rubella 2011-08-07 Completed University of 00:00:00 [facility] [place] [facility] Rubella 2011-08-07 Completed University of 00:00:00 [facility] [place] [facility] Rubella 2011-08-07 Completed University of 00:00:00 [facility] [place] [facility] Rubella 2011-08-07 Completed University of 00:00:00 [facility] [place] [facility] Influenza Virus 2010-02-28 Completed Universit y of Vaccine 00:00:00 [facility] [place] [facility] Influenza Virus 2010-02-28 Completed Universit y of Vaccine 00:00:00 [facility] [place] [facility] Influenza Virus 2010-02-28 Completed Universit y of Vaccine 00:00:00 [facility] [place] [facility] Influenza Virus 2010-02-28 Completed Universit y of Vaccine 00:00:00 [facility] [place] [facility] Influenza Virus 2010-02-28 Completed Universit y of Vaccine 00:00:00 [facility] [place] [facility] Influenza Virus 2010-02-28 Completed Universit y of Vaccine 00:00:00 [facility] [place] [facility] Influenza Virus 2010-02-28 Completed Universit y of Vaccine 00:00:00 [facility] [place] [facility] HPV 2009-02-23 Completed University of 00:00:00 [facility] [place] [facility] HPV 2009-02-23 Completed University of 00:00:00 [facility] [place] [facility] HPV 2009-02-23 Completed University of 00:00:00 [facility] [place] [facility] HPV 2009-02-23 Completed University of 00:00:00 [facility] [place] [facility] HPV 2009-02-23 Completed University of 00:00:00 [facility] [place] [facility] HPV 2009-02-23 Completed University of 00:00:00 [facility] [place] [facility] HPV 2009-02-23 Completed University of 00:00:00 [facility] [place] [facility] HEPATITIS A 2007-12-18 Completed University of 00:00:00 [facility] [place] [facility] HPV 2007-12-18 Completed University of 00:00:00 [facility] [place] [facility] Meningococcal 2007-12-18 Completed University of Vaccine 00:00:00 [facility] [place] [facility] Varicella 2007-12-18 Completed University of (varivax)(chicken 00:00:00 [place] M edical pox) Branch HEPATITIS A 2007-12-18 Completed University of 00:00:00 [facility] [place] [facility] HPV 2007-12-18 Completed University of 00:00:00 [facility] [place] [facility] Meningococcal 2007-12-18 Completed University of Vaccine 00:00:00 [facility] [place] [facility] Varicella 2007-12-18 Completed University of (varivax)(chicken 00:00:00 [place] M edical pox) Branch HEPATITIS A 2007-12-18 Completed University of 00:00:00 [facility] [place] [facility] HPV 2007-12-18 Completed University of 00:00:00 [facility] [place] [facility] Meningococcal 2007-12-18 Completed University of Vaccine 00:00:00 [facility] [place] [facility] Varicella 2007-12-18 Completed University of (varivax)(chicken 00:00:00 [place] M edical pox) Branch HEPATITIS A 2007-12-18 Completed University of 00:00:00 [facility] [place] [facility] HPV 2007-12-18 Completed University of 00:00:00 [facility] [place] [facility] Meningococcal 2007-12-18 Completed University of Vaccine 00:00:00 [facility] [place] [facility] Varicella 2007-12-18 Completed University of (varivax)(chicken 00:00:00 [place] M edical pox) Branch HEPATITIS A 2007-12-18 Completed University of 00:00:00 [facility] [place] [facility] HPV 2007-12-18 Completed University of 00:00:00 [facility] [place] [facility] Meningococcal 2007-12-18 Completed University of Vaccine 00:00:00 [facility] [place] [facility] Varicella 2007-12-18 Completed University of (varivax)(chicken 00:00:00 [place] M edical pox) Branch HEPATITIS A 2007-12-18 Completed University of 00:00:00 [facility] [place] [facility] HPV 2007-12-18 Completed University of 00:00:00 [facility] [place] [facility] Meningococcal 2007-12-18 Completed University of Vaccine 00:00:00 [facility] [place] [facility] Varicella 2007-12-18 Completed University of (varivax)(chicken 00:00:00 [facility] edical pox) Branch HEPATITIS A 2007-12-18 Completed University of 00:00:00 [facility] [place] [facility] HPV 2007-12-18 Completed University of 00:00:00 [facility] [place] [facility] Meningococcal 2007-12-18 Completed University of Vaccine 00:00:00 [facility] [place] [facility] Varicella 2007-12-18 Completed University of (varivax)(chicken 00:00:00 [facility] edical pox) [place] Vital Signs Vital Name Observation Time Observation Value Comments Source Systolic blood 2022-03-12 14:27:00 130 mm[Hg] Univer sity of pressure [facility] [place] [facility] Diastolic blood 2022-03-12 14:27:00 84 mm[Hg] Unive rsity of pressure [facility] [place] [facility] Heart rate 2022-03-12 14:27:00 69 /min [facility] Body temperature 2022-03-12 14:27:00 36.39 Alanna Univ ersity of [facility] Body height 2022-03-12 14:27:00 162.6 cm [facility] Body weight 2022-03-12 14:27:00 103.783 kg [facility] BMI 2022-03-12 14:27:00 39.27 kg/m2 [facility] Procedures Procedure Date / Time Performed Performing Clinician Cam e FIBROSCAN 2022-04-10 05:40:00 Jeison Mandel [facility] ASSIGNMENT OF BENEFITS 2022-04-09 20:41:01 Doctor Unassigned, No [facility] Encounters Start End Encounter Admission Attending Care Care Encounter Source Date/Time Date/Time Type Type Clinicians Facility Department ID 2022-12-25 2022-12-25 Outpatient R OSMAN CAMACHO [facility] [id number] Univers 09:30:00 09:30:00 OSMAN CAMACHO [facility] 2022-05-28 2022-05-28 Outpatient R TEQUILA [facility] [id number] Univers 10:00:00 10:00:00 JEISON [facility] 2022-04-09 2022-04-09 Surgery Tequila [facility] [id number] Univers 15:40:00 16:20:00 Jeison [place] 350.1.13.10 it y of SCIENCES 4.2.7.2.686 [place] as BLDG [id number] [address] 2022-04-09 2022-04-09 Outpatient Tova BARBOSA [facility] GIE [id number] Univers 14:41:00 15:15:00 MALDONADO charley o [facility] 2022-04-09 2022-04-09 [facility] Maldonado Barbosa [facility] 1.2. [id number] Univers 14:41:00 15:15:00 Encounter Jeison Mandel 350.1.13.10 ity of SCIENCES 4.2.7.2.686 [place] as [place]LD[place] [id number] [address] 2022-04-09 2022-04-09 Orders Doctor LINDO [id number] Univers 00:00:00 00:00:00 Only Unassigned, CES[place] 350.1.13.10 ity of [place] [facility] 4.2.7.2.686 Barry as [id number] [facility] 009 Branch 2022-03-12 2022-03-12 Industrial Illuminating Engineer c-Lab UNIVERSIT [id number] Univers 09:15:00 09:30:00 Visit Jeison Mandel Y HEALTH 350.1.13.10 ity of CL[place] 4[place].2.[place] [id number] [facility] 316 Branch 2022-03-12 2022-03-12 Office Tequila, [facility] [id number] Univers 08:00:00 09:00:00 Visit Jeison Y HEALTH 350.1.13.10 i ty of CL[place]ICS [place].2.[place] [id number] [facility] 071 [place] 2022-03-12 2022-03-12 Outpatient R TEQUILA [facility] [id number] Univers 08:00:00 08:00:00 JEISON itcharley [facility] 2022-01-15 2022-01-15 Industrial Illuminating Engineer Lab, [facility] [id number] Univers 09:30:00 09:49:56 Visit Amrita Khoury HEALTH 350.1.13.10 ity of [place] 4.2.7.2.686 Barry as CELSO?BLEA [id number] Ca erick [address] MEDICAL OFFICE BUILDING 2022-01-15 2022-01-15 Outpatient Tova KHOURY [facility] [id number] Univers 09:30:00 09:30:00 AMRITA noriega [facility] 2022-01-12 2022-01-12 Outpatient Tova KHOURY [facility] [id number] Univers 14:22:20 23:59:00 AMRITA noriega [facility] 2022-01-12 2022-01-12 Outpatient Tova KHOURY [facility] [id number] Univers 13:30:00 14:19:12 AMRITA noriega [facility] 2022-01-12 2022-01-12 [facility] [id number] Univers 13:30:00 14:19:12 Visit Amrita Peterson HEALTH 350.1.13.10 i ty [facility] 4.2.7.2.686 Barry as CELSO?BLEA [id number] [address] OFFICE [facility] 2022-01-12 2022-01-12 [facility]phone [facility] [id number] Univers 00:00:00 00:00:00 Amrita A HEALTH 350.1.13.10 i ty of [place] 4.2.7.2.686 Barry as CELSO?BLEA [id number] [address] OFFICE [facility] 2022-01-02 2022-01-02 Telephone [facility] [id number] Univers 00:00:00 00:00:00 Marcela [place] 350.1.13.10 i ty of [place]2.7.2.686 [place] PROF[place] [id number] [address] 2022-01-01 2022-01-01 [facility] [id number] Univers 15:08:37 23:59:00 Encounter Marcelaflex [place] 350.1.13.[address] [facility] 4.2.7.2.[place] [id number] [address] 2022-01-01 2022-01-01 [facility] [id number] Univers 15:08:05 15:07:00 MARCELA ity [facility] 2022-01-01 2022-01-01 [facility] [id number] Univers 15:00:00 15:07:00 Encounter Marcela [place] 350.1.13.10 ity [place]2.[place].2.[place] [id number] [address] 2021-12-25 2021-12-25 Industrial Illuminating Engineer 2, Adc Lab [facility] 1.2.840.114 [id number] Univers 11:00:00 11:15:00 Visit Marcela Perkins [facility] 350.1.13.10 ity of [place].2.7.2.[place] PROFESS[place] [id number] Ca dical NAL 353 [facility] 2021-12-25 2021-12-25 Outpatient [facility] [id number] Univers 11:00:00 11:00:00 [facility] 2021-12-25 2021-12-25 Office [facility] [id number] Univers 09:45:00 10:44:02 Visit Marcela ASCENCION 350.1.13.10 i ty of [place].2.7.2.[place] [facility] [id number] Ca dical NAL 134 [facility] 2021-12-25 2021-12-25 Outpatient [facility] [id number] Univers 09:45:00 10:44:02 MARCELA hari [facility] 2021-12-25 2021-12-25 Orders Doctor BELGICA [id number] Univers 00:00:00 00:00:00 Only Unassigned, CESARIO [id number] ity of [place] [facility] [id number] Barry as [phone] [facility] [address] 2021-02-13 2021-02-13 Emergency Adol[facility] [id number] Univers 11:58:00 14:59:00 Johnna Ascencion [id number] [id number] [phone] [facility] [address] 2021-02-13 2021-02-13 Emergency X ADOLFO, K [facility] ERT [id number] Univers 11:58:00 14:59:00 ity [facility] 2021-02-13 2021-02-13 Orders Doctor BELGICA [id number] [id number] Univers 00:00:00 00:00:00 Only Unassigned, CESARIO [id number] ity of [place] [facility] [id number] Barry as [phone] [address] 2020-12-30 2020-12-30 [facility]phone [facility] 1.2.840.114 [id number] Univers 00:00:00 00:00:00 Goldie Celaya TAPEMAN [id number] ity [facility] [id number] Barry as MATERNAL [phone] [facility] [address] [place] [address] 2020-12-26 2020-12-26 Office [facility] [id number] Univers 09:41:31 11:28:17 Visit Goldie Celaya TAPEMAN [id number] ity [facility] [id number] Barry as MATERNAL [phone] [address] 2020-12-26 2020-12-26 Outpatient R EUFEMIA [facility] [id number] Univers 09:30:00 09:30:00 GOLDIE noriega o f [facility] 2020-11-28 2020-11-28 Outpatient R SHONA [facility] [id number] Univers 15:40:00 15:40:00 VLADIMIR noriega [facility] 2019-11-16 2019-11-16 Laboratory Lab, [facility] 1.2.840.114 [id number] 14:36:15 14:56:15 Only Fam [facility] [id number] [place] [id number] Professio [phone] nal [address] 2019-11-16 2019-11-16 Outpatient R BRYANNA [facility] [id number] Univers 14:20:00 14:20:00 TAYLER noriega [facility] 2019-11-16 2019-11-16 Letter Doctor BELGICA [id number] 00:00:00 00:00:00 (Out) Unassigned, CESARIO [id number] [place] [facility] [phone] [id number] Results This patient has no known results.
[2022-12-26] MEDS ORDERED: KETOROLAC 30 MG/ML INJ ONE (14:26)
--- NOTE | 2022-12-26 14:39 | RAD REPORT ---
EXAM DESCRIPTION: RAD - Chest Pa And Lat (2 Views) - 12/26/2022 2:26 pm CLINICAL HISTORY: COUGH Chest pain. COMPARISON: <Comparisons> FINDINGS: The lungs are clear. The heart is normal in size. No displaced fractures. IMPRESSION: No acute or concerning finding suspected.
[2022-12-26 14:41] LABS: SARS-CoV-2 Antigen Rapid Res Positive (Negative)
--- NOTE | 2022-12-26 15:11 | ER ---
Nurse's Notes [facility] Name: Bianca Zamora Age: 32 yrs Sex: Female : 1990 Arrival Date: 12/26/2022 Time: 13:26 Bed 10 Private MD: Diagnosis: Covid Presentation: 12/26 13:52 Chief complaint: Patient states: cough, congestion, sore throat, and headache onset cm10 Saturday. Pt reports fever, TMAX 102f. Pt denies any sick contacts. Coronavirus screen: Vaccine status: Patient reports receiving the 1st dose of the Covid vaccine. Ebola Screen: Patient denies travel to an Ebola-affected area in the 21 days before illness onset. No symptoms or risks identified at this time. Initial Sepsis Screen: Does the patient meet any 2 criteria? No. Patient's initial sepsis screen is negative. Does the patient have a suspected source of infection? No. Patient's initial sepsis screen is negative. Risk Assessment: Do you want to hurt yourself or someone else? Patient reports no desire to harm self or others. Onset of symptoms was December 23, 2022. 13:52 Method Of Arrival: Ambulatory cm10 13:52 Acuity: LOAN 3 cm10 Triage Assessment: 14:36 Headache History: The patient has had previous headaches and this one is similar to cm10 previous episodes. General: Appears in no apparent distress. comfortable, Behavior is calm, cooperative. Pain: Complains of pain in head Pain currently is 10 out of 10 on a pain scale. Pain began 1 day ago. Also complains of decreased appetite. Neuro: No deficits noted. Level of Consciousness is awake, alert, obeys commands, Oriented to person, place, time, situation. Cardiovascular: No deficits noted. Respiratory: No deficits noted. Airway is patent Respiratory effort is even, unlabored, Respiratory pattern is regular, symmetrical. Derm: No deficits noted. Skin is intact, Skin is pink, warm \T\ dry. 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 - Social history:: Smoking status: Patient denies any tobacco usage or history of. - Family history:: not pertinent. Screenin:38 [facility] ED Fall Risk Assessment (Adult) History of falling in the last 3 months, cm10 including since admission No falls in past 3 months (0 pts) Confusion or Disorientation No (0 pts) Intoxicated or Sedated No (0 pts) Impaired Gait No (0 pts) Mobility Assist Device Used No (0 pt) Altered Elimination No (0 pt). Abuse screen: Denies threats or abuse. Denies injuries from another. Nutritional screening: No deficits noted. Tuberculosis screening: No symptoms or risk factors identified. Assessment: 14:37 Reassessment: See triage assessment. Pain: Complains of pain in head. cm10 15:28 Reassessment: Patient and/or family updated on plan of care and expected duration. Pain cm10 level reassessed. Patient is alert, oriented x 3, equal unlabored respirations, skin warm/dry/pink. Patient states feeling better. Patient states symptoms have improved. Vital Signs: 13:52 BP 119 / 73; Pulse 93; Resp 18 S; Temp 99.7(O); Pulse Ox 98% on R/A; Weight 108.86 kg cm10 (R); Height 5 ft. 4 in. (R); Pain 7/10; 14:56 Pain 2/10; cm10 13:52 Body Mass Index 41.20 (108.86 kg, 162.56 cm) cm10 13:52 Pain Scale: Adult cm10 14:56 Pain Scale: Adult cm10 ED Course: 13:38 Patient arrived in ED. mg5 13:53 Fox Cortes MD is Attending Physician. rt 13:54 Triage completed. cm10 13:55 Arm band placed on Patient placed in waiting room. cm10 14:11 Karen Fowler, PORSCHE is Primary Nurse. cm10 14:22 SARS RAPID Sent. cm10 14:22 Influenza Screen (a \T\ B) Sent. cm10 14:22 COVID swab sent to lab. Flu and/or RSV swab sent to lab. cm10 14:26 Chest Pa And Lat (2 Views) XRAY In Process Unspecified. EDMS 14:38 Patient has correct armband on for positive identification. Bed in low position. Call cm10 light in reach. Provided Education on: N/A. 15:28 No provider procedures requiring assistance completed. Patient did not have IV access cm10 during this emergency room visit. Administered Medications: 14:22 Drug: Ketorolac IM 15 mg Route: IM; Site: left deltoid; cm10 14:56 Follow up: Pain 2/10 Adult; Response: No adverse reaction; Pain is decreased cm10 Medication: 14:38 VIS not applicable for this client. cm10 Outcome: 15:10 Discharge ordered by . rt 15:28 Discharged to home ambulatory. cm10 15:28 Condition: good 15:28 Discharge instructions given to patient, Instructed on discharge instructions, follow up and referral plans. Demonstrated understanding of instructions, follow-up care. 15:28 Patient left the ED. cm10 Signatures: Dispatcher [employer] EDMS Fox Cortes MD MD rt Karen Fowler RN RN cm10 Franca Cage mg5
--- NOTE | 2022-12-26 15:11 | EDPHYS ---
Physician Documentation [facility] Name: Bianca Zamora Age: 32 yrs Sex: Female : 1990 Arrival Date: 12/26/2022 Time: 13:26 Bed 10 Private MD: ED Physician Fox Cortes HPI: 12/26 15:26 This 32 yrs old Female presents to ER via Ambulatory with complaints of rt Headache, Dizziness, Shortness Of Breath, Cough, Fever. 15:26 Patient presents to the ED with cough, congestion, headache since Saturday. Reports mild rt dizziness. Denies other acute complaints at this time. Denies difficulty breathing. Symptoms are mild severity, no other aggravating or alleviating factors.. 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 - Social history:: Smoking status: Patient denies any tobacco usage or history of. - Family history:: not pertinent. ROS: 15:26 Abdomen/GI: Negative for abdominal pain, nausea, vomiting, diarrhea, and constipation, rt MS/Extremity: Negative for injury and deformity, Skin: Negative for injury, rash, and discoloration, Psych: Negative for depression, anxiety, suicide ideation, homicidal ideation, and hallucinations. 15:26 Constitutional: Positive for body aches, fever, malaise. 15:26 Respiratory: Positive for cough, Negative for shortness of breath. 15:26 Neuro: Positive for headache, Negative for altered mental status. Exam: 15:26 Constitutional: This is a well developed, well nourished patient who is awake, alert, rt and in no acute distress. Head/Face: Normocephalic, atraumatic. Chest/axilla: Normal chest wall appearance and motion. Nontender with no deformity. No lesions are appreciated. Cardiovascular: Regular rate and rhythm with a normal S1 and S2. No gallops, murmurs, or rubs. Normal PMI, no JVD. No pulse deficits. Respiratory: Lungs have equal breath sounds bilaterally, clear to auscultation and percussion. No rales, rhonchi or wheezes noted. No increased work of breathing, no retractions or nasal flaring. Abdomen/GI: Soft, non-tender, with normal bowel sounds. No distension or tympany. No guarding or rebound. No evidence of tenderness throughout. Skin: Warm, dry with normal turgor. Normal color with no rashes, no lesions, and no evidence of cellulitis. MS/ Extremity: Pulses equal, no cyanosis. Neurovascular intact. Full, normal range of motion. Neuro: Awake and alert, GCS 15, oriented to person, place, time, and situation. Cranial nerves II-XII grossly intact. Motor strength 5/5 in all extremities. Sensory grossly intact. Cerebellar exam normal. Normal gait. Psych: Awake, alert, with orientation to person, place and time. Behavior, mood, and affect are within normal limits. Vital Signs: 13:52 BP 119 / 73; Pulse 93; Resp 18 S; Temp 99.7(O); Pulse Ox 98% on R/A; Weight 108.86 kg cm10 (R); Height 5 ft. 4 in. (R); Pain 7/10; 14:56 Pain 2/10; cm10 13:52 Body Mass Index 41.20 (108.86 kg, 162.56 cm) cm10 13:52 Pain Scale: Adult cm10 14:56 Pain Scale: Adult cm10 MDM: 14:04 Patient medically screened. rt 15:26 Differential diagnosis: COVID, flu, viral syndrome. Data reviewed: vital signs, nurses rt notes. Independent interpretation of the following test(s) in the Emergency Department X-Ray: My interpretation is No consolidation seen on interpretation of the x-ray images. Test considered but Not performed: CT: Benign, likely viral process, CT scan of the head is not indicated. Counseling: I had a detailed discussion with the patient and/or guardian regarding the historical points, exam findings, and any diagnostic results supporting the discharge/admit diagnosis, lab results, radiology results, the need for outpatient follow up. Response to treatment: the patient's symptoms have mildly improved after treatment. 12/26 14: Order name: Influenza Screen (a \T\ B); Complete Time: 15:05 rt 12/26 14:01 Order name: SARS RAPID; Complete Time: 14:42 rt 12/26 14: Order name: Chest Pa And Lat (2 Views) XRAY; Complete Time: 14:42 rt Administered Medications: 14:22 Drug: Ketorolac IM 15 mg Route: IM; Site: left deltoid; cm10 14:56 Follow up: Pain 2/10 Adult; Response: No adverse reaction; Pain is decreased cm10 Disposition Summary: 12/26/22 15:10 Discharge Ordered Location: Home rt Problem: new rt Symptoms: are unchanged rt Condition: Stable rt Diagnosis - Covid rt Followup: rt - With: Private Physician - When: 7 - 10 days - Reason: Discharge Instructions: - Discharge Summary Sheet rt - COVID-19 rt Forms: - Work release form rt - Medication Reconciliation Form rt - Thank You Letter rt - Antibiotic Education rt - Prescription Opioid Use rt - Patient Portal Instructions rt - Leadership Thank You Letter rt Signatures: Dispatcher [employer] Fox Ewing MD MD rt Karen Fowler RN RN cm10
[2022-12-26 15:56] VITALS: BP 119/73; TEMP 99.7; O2SAT 98
== END 2022-12-26 15:28 | disposition home or self-care (01) ==
LOC: ER 13:26
DX: U07.1 COVID-19 (principal)
CPT/HCPCS: 36415; 71046; 87804; 87811

== ENCOUNTER 2024-02-25 20:13 | Inpatient (IN) | payer BC ==
--- OUTSIDE RECORDS SUMMARY | 2024-02-25 20:16 | XMS REPORT | Continuity of Care Document ---
Author Name Unknown Address [address] [facility]. 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 Phone Amrita Mcmanus Primary Care Physician + [phone] SONALI AYERS Attending Clinician UnavailSONALI Stroud Attending Clinician UnavailSonali Stroud DO Attending Clinician [phone] Denice Echeverria Attending Clinician [phone] Unknown, Attending Attending Clinician UnavailDENICE Gorman Attending Clinician Unavailable OSMAN CAMACHO Attending Clinician OSMAN Gilman Attending Clinician JEISON Baptiste Attending Clinician Unavailable Jeison Craven Attending Clinician [phone] MALDONADO BARBOSA Attending Clinician UnavailMaldonado Sherman DO Attending Clinician [phone] Doctor Unassigned, [place] Attending Clinician U navailable [facility] Attending Clinician Unavailable HELEN QUINN Attending Clinician Unavailable HELEN QUINN Attending Clinician Unavailable Lab, Ang - Db Attending Clinician Unavailable Amrita Mcmanus Attending Clinician [phone] AMRITA KHOURY Attending Clinician Unavailable Marcela Perkins PA-C Attending Clinician [phone] MARCELA PERKINS Attending Clinician Unavailable 2, [facility] Attending Clinician Unavailable Alexx Ramos Attending Clinician [phone] Alexx MATA Attending Clinician Unavailable Akinsipe WHCNPGoldie Attending Clinician + GOLDIE BENEDICT Attending Clinician Unavail able VLADIMIR NAGEL Attending Clinician Unavailable Lab, Adc Fam Pob I Attending Clinician Unavailab TAYLER Jackson Attending Clinician Unavailable TEQUILA JEISON Admitting Clinician Unavailable Tequila PRECISION LENS POLISHER Jeison Admitting Clinician Alexx MATA Admitting Clinician Unavailable Payers Payer Name Policy Type Policy Number Effective Date Expirati on Date Source [id number] 2021 00:00:[address] [facility] [id number] 2021 00:00:00 [employer] GENERIC [id number] 2019 00:00:00 COMMERCIAL NON-CONTRACT GENERIC [id number] 2018 00:00:00 Problems Condition Name Condition Details Condition Category Status Onset Date Resolution Date Last Treatment Date Treating Clinician Comments Source Gastroesop hageal reflux disease, unspecifie d whether esophagiti s present Gastroesop hageal reflux disease, unspecifie d whether esophagiti s present Disease Active 2021-05 00:00: 00 Overview: Formattin g of this note might be different from the original. Added automatic ally from request for surgery [id number] [facility] Vitamin D deficiency Vitamin D deficiency Disease Active 01-17 00:00: 00 [facility] Other general counseling and advice for contracept stacy management Other general counseling and advice for contracept stacy management Disease Active 12-26 00:00: 00 [facility] Other depression Other depression Disease Active 12-26 00:00: 00 [facility] History of tubal ligation History of tubal ligation Disease Active 07-04 00:00: 00 Overview: Formattin g of this note might be different from the original. 1wk postop. Noted erythema and tendernes s 1cm on left edge of wound. 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 BMI at initial OB visit : 36.21 - diet and expected weight gain reviewedI CD10 Diagnosis Term Attractions Associate Utility [facility] Single liveborn Single liveborn Disease Resolve d 07-05 00:00: 00 2020-12-26 00:00:00 2020-12-26 10:54:27 [facility] Normal delivery Normal delivery Disease Resolve d 07-04 00:00: 00 2020-12-26 00:00:00 2020-12-26 10:54:32 [facility] Multiparit y Multiparit y Disease Resolve d 11-23 00:00: 00 2020-12-26 00:00:00 2021-11-19 00:36:54 [facility] 38 weeks gestation of 38 weeks gestation of Disease Resolve d 07-04 00:00: 00 2015-07-06 00:00:00 2015-07-06 07:20:38 [facility] Indication for care or interventi on in labor or delivery-L abor Indication for care or interventi on in labor or delivery-L abor Disease Resolve d 07-04 00:00: 00 2015-07-05 00:00:00 2015-07-05 18:46:24 [facility] Need for Tdap vaccinatio n Need for Tdap vaccinatio n Disease Resolve d 06-27 00:00: 2015-07-05 00:00:00 2021-11-19 00:39:37 [facility] Chlamydia trachomati s infection of lower genitourin roscoe sites Chlamydia trachomati s infection of lower genitourin roscoe sites Disease Resolve d 11-25 00:00: 00 2015-07-05 00:00:00 2021-11-19 00:36:57 [facility] Maternal gonorrhea, antepartum , unspecifie d trimester Maternal gonorrhea, antepartum , unspecifie d trimester Disease Resolve d 11-25 00:00: 00 2015-07-05 00:00:00 2021-11-19 00:36:57 [facility] Genitourin roscoe infection, antepartum , unspecifie d trimester Genitourin roscoe infection, antepartum , unspecifie d trimester Disease Resolve d 11-25 00:00: 00 2015-07-05 00:00:00 2021-11-19 00:36:57 [facility] Family history of Down syndrome Family history of Down syndrome Disease Resolve d 11-23 00:00: 00 2015-07-05 00:00:00 2021-11-19 00:36:54 [facility] Smoking history Smoking history Disease Resolve d 09-09 00:00: 00 2015-07-05 00:00:00 2021-11-19 00:30:10 [facility] History of depression History of depression Disease Resolve d 09-09 00:00: 00 2015-07-05 00:00:00 2021-11-19 00:30:10 [facility] Screen for STD (sexually transmitte d disease) Screen for STD (sexually transmitte d disease) Disease Resolve d 2-05 00:00: 00 2015-06-27 00:00:00 2015-06-27 11:49:40 [facility] Supervisio n of high-risk of young multigravi da, third trimester Supervisio n of high-risk of young multigravi da, third trimester Disease Resolve d 107 00:00: 00 2015-06-27 00:00:00 2015-06-27 11:52:10 [facility] Screening for diabetes mellitus Screening for diabetes mellitus Disease Resolve d 2014-05 2- 00:00: 00 2015-06-27 00:00:00 2015-06-27 11:52:04 [facility] Urinary tract infection without hematuria, site unspecifie d Urinary tract infection without hematuria, site unspecifie d Disease Resolve d 2014-05 0-20 00:00: 00 2015-06-27 00:00:00 2015-06-27 11:50:28 [facility] Need for prophylact ic vaccinatio n and inoculatio n against influenza Need for prophylact ic vaccinatio n and inoculatio n against influenza Disease Resolve d 2014-05 0-14 00:00: 00 2015-06-27 00:00:00 2015-06-27 11:52:01 [facility] Short interval between pregnancie s affecting in second trimester, antepartum Short interval between pregnancie s affecting in second trimester, antepartum Disease Resolve d 2014-05 0- 00:00: 00 2015-06-27 00:00:00 2021-11-19 00:38:04 [facility] High-risk , unspecifie d trimester High-risk , unspecifie d trimester Disease Resolve d 7- 00:00: 00 2015-06-27 00:00:00 2015-06-27 13:25:50 [facility] Laceration of periurethr al tissue with delivery Laceration of periurethr al tissue with delivery Disease Resolve d 2013-05 2-26 00:00: 00 2014-11-23 00:00:00 2014-11-23 13:47:46 [facility] Heartburn in , third trimester Heartburn in , third trimester Disease Resolve d 2013-05 1-14 00:00: 00 2014-11-23 00:00:00 2021-11-19 00:33:09 [facility] Supervisio n of other high-risk , third trimester Supervisio n of other high-risk , third trimester Disease Resolve d 2013-0 9-11 00:00: 00 2014-11-23 00:00:00 2014-11-23 13:47:55 [facility] Rubella non-immune status, antepartum Rubella non-immune status, antepartum Disease Resolve d 09-12 00:00: 00 2014-11-23 00:00:00 2021-11-19 00:30:14 [facility] Chlamydia trachomati s infection of lower genitourin roscoe sites Chlamydia trachomati s infection of lower genitourin roscoe sites Disease Resolve d 09-12 00:00: 00 2014-11-23 00:00:00 2021-11-19 00:30:14 [facility] Obesity complicati ng , childbirth , or puerperium , antepartum Obesity complicati ng , childbirth , or puerperium , antepartum Disease Resolve d 09-09 00:00: 00 2014-11-23 00:00:00 2021-11-19 00:30:10 [facility] Multiparit y Multiparit y Disease Resolve d 09-09 00:00: 00 2014-11-23 00:00:00 2021-11-19 00:30:10 [facility] 39 weeks gestation of 39 weeks gestation of Disease Resolve d 2013-05 00:00: 00 2014-04-30 00:00:00 2014-04-30 17:39:52 [facility] Candidiasi s of vulva and vagina Candidiasi s of vulva and vagina Disease Resolve d 2013-05 00:00: 00 2014-04-28 00:00:00 2021-11-19 00:33:09 [facility] Antepartum genitourin roscoe tract infection Antepartum genitourin roscoe tract infection Disease Resolve d 09-12 00:00: 00 2014-04-28 00:00:00 2021-11-19 00:30:14 [facility] Disease Resolve d 2013-05 00:00: 00 2014-04-21 00:00:00 2014-04-21 12:41:32 [facility] Other specified screening( V28.89) Other specified screening( V28.89) Disease Resolve d 11-12 00:00: 00 2014-04-21 00:00:00 2021-11-19 00:31:07 [facility] High-risk High-risk Disease Resolve d 09-09 00:00: 00 2014-04-21 00:00:00 2014-04-21 12:42:04 [facility] History of maternal chlamydia infection, currently History of maternal chlamydia infection, currently Disease Resolve d 09-09 00:00: 00 2013-11-12 00:00:00 2021-11-19 00:30:10 [facility] ASB (asymptoma tic bacteriuri a) ASB (asymptoma tic bacteriuri a) Disease Resolve d 09-09 00:00: 00 2013-10-12 00:00:00 2021-11-19 00:30:10 [facility] Absence of menstruati on Absence of menstruati on Disease Resolve d 09-22 00:00: 00 2013-10-07 00:00:00 2013-10-07 09:34:20 [facility] Multiparit y Multiparit y Disease Resolve d 2011-05 00:00: 00 2012-08-27 00:00:00 2012-08-27 10:35:26 [facility] anemia anemia Disease Resolve d 2011-05 00:00: 00 2012-08-27 00:00:00 2021-11-19 00:22:16 [facility] Supervisio n of high-risk Supervisio n of high-risk Disease Resolve d 2011-05 00:00: 00 2012-03-12 00:00:00 2012-03-12 09:10:54 [facility] Headache Headache Disease Resolve d 2011-05 00:00: 00 2012-03-12 00:00:00 2021-11-19 00:22:11 [facility] First degree perineal laceration during delivery First degree perineal laceration during delivery Disease Resolve d 2009-05- 00:00: 00 2012-03-01 00:00:00 2021-11-19 00:17:57 [facility] Status post induction of labor Status post induction of labor Disease Resolve d 2009-05 00:00: 00 2010-04-17 00:00:00 2021-11-19 00:17:57 [facility] Teen Teen Disease Resolve d 2009-05 00:00: 00 2010-04-17 00:00:00 [facility] Allergies, Adverse Reactions, Alerts Allergy Name Allergy Type Status Severity Reaction(s) Onset Date Inactive Date Treating Clinician Comments Source NO KNOWN ALLERGIE S Drug Class Active [facility] Social History Social Habit Start Date Stop Date Quantity Comments Source History SDOH Alcohol Frequency [facility] History SDOH Alcohol Std Drinks [facility] History SDOH Alcohol Binge [facility] History of tobacco use Cigarette Smoker [facility] Gender identity [facility] Sexual orientation U [facility] Alcoholic beverage intake 2024-02-24 00:00:00 2024-02-24 00:00:00 0 /d [facility] Exposure to SARS-CoV-2 (event) 2022-03-02 00:00:00 2022-03-12 07:08:00 Not sure [facility] Tobacco use and exposure 2022-01-12 00:00:00 2022-01-12 00:00:00 Smokeless tobacco non-user [facility] Cigarettes smoked current (pack per day) - Reported 2022-01-12 00:00:00 2022-01-12 00:00:00 [facility] Cigarette pack-years 2022-01-12 00:00:00 2022-01-12 00:00:00 [facility] History of Social function 2022-01-12 00:00:00 2022-01-12 00:00:00 [facility] Alcohol intake 2021-12-25 00:00:00 2021-12-25 00:00:00 0 /d [facility] Tobacco Comment 2021-12-25 00:00:00 2021-12-25 00:00:00 4 cigs a day [facility] Alcohol Comment 2012-08-27 00:00:00 2012-08-27 00:00:00 socially [facility] Sex assigned at 1990 00:00:00 1990 00:00:00 [facility] Smoking Status Start Date Stop Date Source Smokes tobacco daily 2022-01-12 00:00:00 [facility] Medications Ordered Medication Name Filled Medication Name Start Date Stop Date Current Medication? Ordering Clinician Indication Dosage Frequency Signature (SIG) Comments Components Source ketorolac (TORADOL) injection 30 mg 2023-05 17:00: 00 02-23 16:47 :00 No 30mg 30 mg, Slow IV Push, ONCE, 1 dose, On Sat02/24/24 at 1200, Routine [facility] ondansetron (ZOFRAN (PF)) injection 4 mg 2023-05 16:15: 00 02-23 16:48 :00 No 4mg 4 mg, Slow IV Push, ONCE, 1 dose, On Sat02/24/24 at 1115, WILLEM [facility] ketorolac 10 mg tablet 2023-05 00:00: 00 Yes [id number] 10mg Take 1 tablet by mouth every 6 (six) hours as needed for Pain (scale 1-3). [facility] ofloxacin 0.3 % ophthalmic solution 01-03 00:00: 00 01-11 04:59 :00 No [id number] 1[drp] Place 1 Drop in right eye 4 (four) times daily for 7 days. [facility] pantoprazol e 40 mg EC tablet 2021-05 00:00: 00 Yes [id number] 40mg Take 1 tablet by mouth in the morning. [facility] esomeprazol e 20 mg capsule 01-12 00:00: 00 03-12 00:00 :00 No [id number] 20mg Take 20 mg by mouth daily before a meal. [facility] Immunizations Ordered Immunization Name Filled Immunization Name Date Status Comments Source SARS-COV-2 COVID-19 MODERNA 12+ YRS VACCINE 2020-10-14 00:00:00 Completed SARS-COV-2 COVID-19 MODERNA 12+ YRS VACCINE 2020-10-14 00:00:00 Completed [facility] SARS-COV-2 COVID-19 MODERNA 12+ YRS VACCINE 2020-10-14 00:00:00 Completed [facility] SARS-COV-2 COVID-19 MODERNA 12+ YRS VACCINE 2020-10-14 00:00:00 Completed [facility] SARS-COV-2 COVID-19 MODERNA 12+ YRS VACCINE 2020-10-14 00:00:00 Completed [facility] SARS-COV-2 COVID-19 MODERNA 12+ YRS VACCINE 2020-10-14 00:00:00 Completed [facility] SARS-COV-2 COVID-19 MODERNA 12+ YRS VACCINE 2020-10-14 00:00:00 Completed [facility] SARS-COV-2 COVID-19 MODERNA 12+ YRS VACCINE 2020-10-14 00:00:00 Completed [facility] SARS-COV-2 COVID-19 MODERNA 12+ YRS VACCINE 2020-09-16 00:00:00 Completed [facility] SARS-COV-2 COVID-19 MODERNA 12+ YRS VACCINE 2020-09-16 00:00:00 Completed [facility] SARS-COV-2 COVID-19 MODERNA 12+ YRS VACCINE 2020-09-16 00:00:00 Completed [facility] SARS-COV-2 COVID-19 MODERNA 12+ YRS VACCINE 2020-09-16 00:00:00 Completed [facility] SARS-COV-2 COVID-19 MODERNA 12+ YRS VACCINE 2020-09-16 00:00:00 Completed [facility] SARS-COV-2 COVID-19 MODERNA 12+ YRS VACCINE 2020-09-16 00:00:00 Completed [facility] SARS-COV-2 COVID-19 MODERNA 12+ YRS VACCINE 2020-09-16 00:00:00 Completed [facility] SARS-COV-2 COVID-19 MODERNA 12+ YRS VACCINE 2020-09-16 00:00:00 Completed [facility] TDAP 2015-06-27 00:00:00 Completed TDAP 2015-06-27 00:00:00 Completed [facility] TDAP 2015-06-27 00:00:00 Completed [facility] TDAP 2015-06-27 00:00:00 Completed [facility] TDAP 2015-06-27 00:00:00 Completed [facility] TDAP 2015-06-27 00:00:00 Completed [facility] TDAP 2015-06-27 00:00:00 Completed [facility] TDAP 2015-06-27 00:00:00 Completed [facility] Influenza Virus Vaccine Quad IM 3+ YRS 2015-02-16 00:00:00 Completed [facility] Influenza Virus Vaccine Quad IM 3+ YRS 2015-02-16 00:00:00 Completed [facility] Influenza Virus Vaccine Quad IM 3+ YRS 2015-02-16 00:00:00 Completed [facility] Influenza Virus Vaccine Quad IM 3+ YRS 2015-02-16 00:00:00 Completed [facility] Influenza Virus Vaccine Quad IM 3+ YRS 2015-02-16 00:00:00 Completed [facility] Influenza Virus Vaccine Quad IM 3+ YRS 2015-02-16 00:00:00 Completed [facility] Influenza Virus Vaccine Quad IM 3+ YRS 2015-02-16 00:00:00 Completed [facility] Influenza Virus Vaccine Quad IM 3+ YRS 2015-02-16 00:00:00 Completed [facility] MMR 2014-05-01 00:00:00 Completed [facility] MMR 2014-05-01 00:00:00 Completed [facility] MMR 2014-05-01 00:00:00 Completed [facility] MMR 2014-05-01 00:00:00 Completed [facility] MMR 2014-05-01 00:00:00 Completed [facility] MMR 2014-05-01 00:00:00 Completed [facility] MMR 2014-05-01 00:00:00 Completed [facility] MMR 2014-05-01 00:00:00 Completed [facility] Influenza, split virus, trivalent, preservative (3+ Yrs) (Afluria) 2014-02-17 00:00:00 Completed [facility] Influenza Virus Vaccine (3+ yrs) 2014-02-17 00:00:00 Completed [facility] Influenza Virus Vaccine (3+ yrs) 2014-02-17 00:00:00 Completed [facility] Influenza Virus Vaccine (3+ yrs) 2014-02-17 00:00:00 Completed [facility] Influenza Virus Vaccine (3+ yrs) 2014-02-17 00:00:00 Completed [facility] Influenza Virus Vaccine (3+ yrs) 2014-02-17 00:00:00 Completed [facility] Influenza Virus Vaccine (3+ yrs) 2014-02-17 00:00:00 Completed [facility] Influenza Virus Vaccine (3+ yrs) 2014-02-17 00:00:00 Completed [facility] TDAP 2014-02-01 00:00:00 Completed [facility] TDAP 2014-02-01 00:00:00 Completed [facility] TDAP 2014-02-01 00:00:00 Completed [facility] TDAP 2014-02-01 00:00:00 Completed [facility] TDAP 2014-02-01 00:00:00 Completed [facility] TDAP 2014-02-01 00:00:00 Completed [facility] TDAP 2014-02-01 00:00:00 Completed [facility] TDAP 2014-02-01 00:00:00 Completed [facility] Influenza Virus Vaccine 2012-02-05 00:00:00 Completed [facility] Influenza Virus Vaccine 2012-02-05 00:00:00 Completed [facility] Influenza Virus Vaccine 2012-02-05 00:00:00 Completed [facility] Influenza Virus Vaccine 2012-02-05 00:00:00 Completed [facility] Influenza Virus Vaccine 2012-02-05 00:00:00 Completed [facility] Influenza Virus Vaccine 2012-02-05 00:00:00 Completed [facility] Influenza Virus Vaccine 2012-02-05 00:00:00 Completed [facility] Influenza Virus Vaccine 2012-02-05 00:00:00 Completed TDAP 2011-11-13 00:00:00 Completed TDAP 2011-11-13 00:00:00 Completed [facility] TDAP 2011-11-13 00:00:00 Completed [facility] TDAP 2011-11-13 00:00:00 Completed [facility] TDAP 2011-11-13 00:00:00 Completed [facility] TDAP 2011-11-13 00:00:00 Completed [facility] TDAP 2011-11-13 00:00:00 Completed [facility] TDAP 2011-11-13 00:00:00 Completed [facility] Rubella 2011-08-07 00:00:00 Completed Rubella 2011-08-07 00:00:00 Completed [facility] Rubella 2011-08-07 00:00:00 Completed [facility] Rubella 2011-08-07 00:00:00 Completed [facility] Rubella 2011-08-07 00:00:00 Completed [facility] Rubella 2011-08-07 00:00:00 Completed [facility] Rubella 2011-08-07 00:00:00 Completed [facility] Rubella 2011-08-07 00:00:00 Completed [facility] Influenza Virus Vaccine 2010-02-28 00:00:00 Completed [facility] Influenza Virus Vaccine 2010-02-28 00:00:00 Completed [facility] Influenza Virus Vaccine 2010-02-28 00:00:00 Completed [facility] Influenza Virus Vaccine 2010-02-28 00:00:00 Completed [facility] Influenza Virus Vaccine 2010-02-28 00:00:00 Completed [facility] Influenza Virus Vaccine 2010-02-28 00:00:00 Completed [facility] Influenza Virus Vaccine 2010-02-28 00:00:00 Completed [facility] Influenza Virus Vaccine 2010-02-28 00:00:00 Completed HPV 2009-02-23 00:00:00 Completed [facility] HPV 2009-02-23 00:00:00 Completed [facility] HPV 2009-02-23 00:00:00 Completed [facility] HPV 2009-02-23 00:00:00 Completed [facility] HPV 2009-02-23 00:00:00 Completed [facility] HPV 2009-02-23 00:00:00 Completed [facility] HPV 2009-02-23 00:00:00 Completed [facility] HPV 2009-02-23 00:00:00 Completed Meningococcal Vaccine 2007-12-18 00:00:00 Completed Varicella (varivax)(chicken pox) 2007-12-18 00:00:00 Completed HEPATITIS A 2007-12-18 00:00:00 Completed [facility] HPV 2007-12-18 00:00:00 Completed [facility] Meningococcal Vaccine 2007-12-18 00:00:00 Completed [facility] Varicella (varivax)(chicken pox) 2007-12-18 00:00:00 Completed [facility] HEPATITIS A 2007-12-18 00:00:00 Completed [facility] HPV 2007-12-18 00:00:00 Completed [facility] Meningococcal Vaccine 2007-12-18 00:00:00 Completed [facility] Varicella (varivax)(chicken pox) 2007-12-18 00:00:00 Completed [facility] HEPATITIS A 2007-12-18 00:00:00 Completed [facility] HPV 2007-12-18 00:00:00 Completed [facility] Meningococcal Vaccine 2007-12-18 00:00:00 Completed [facility] Varicella (varivax)(chicken pox) 2007-12-18 00:00:00 Completed [facility] HEPATITIS A 2007-12-18 00:00:00 Completed [facility] HPV 2007-12-18 00:00:00 Completed [facility] Meningococcal Vaccine 2007-12-18 00:00:00 Completed [facility] Varicella (varivax)(chicken pox) 2007-12-18 00:00:00 Completed [facility] HEPATITIS A 2007-12-18 00:00:00 Completed [facility] HPV 2007-12-18 00:00:00 Completed [facility] Meningococcal Vaccine 2007-12-18 00:00:00 Completed [facility] Varicella (varivax)(chicken pox) 2007-12-18 00:00:00 Completed [facility] HEPATITIS A 2007-12-18 00:00:00 Completed [facility] HPV 2007-12-18 00:00:00 Completed [facility] Meningococcal Vaccine 2007-12-18 00:00:00 Completed [facility] Varicella (varivax)(chicken pox) 2007-12-18 00:00:00 Completed [facility] HEPATITIS A 2007-12-18 00:00:00 Completed [facility] HPV 2007-12-18 00:00:00 Completed [facility] Meningococcal Vaccine 2007-12-18 00:00:00 Completed [facility] Varicella (varivax)(chicken pox) 2007-12-18 00:00:00 Completed [facility] HEPATITIS A 2007-12-18 00:00:00 Completed HPV 2007-12-18 00:00:00 Completed HEPATITIS A Unknown Completed [facility] HPV Unknown Completed [facility] Influenza Virus Vaccine Unknown Completed [facility] Meningococcal Vaccine Unknown Completed [facility] [facility] Rubella Unknown Completed [facility] TDAP Unknown Completed [facility] Varicella (varivax)(chicken pox) Unknown Completed [facility] Influenza Virus Vaccine (3+ yrs) Unknown Completed [facility] MMR Unknown Completed [facility] Influenza Virus Vaccine Quad IM 3+ YRS Unknown Completed [facility] SARS-COV-2 COVID-19 MODERNA 12+ YRS VACCINE Unknown Completed [facility] HEPATITIS A Unknown Completed [facility] HPV Unknown Completed [facility] Influenza Virus Vaccine Unknown Completed [facility] Meningococcal Vaccine Unknown Completed [facility] Rubella Unknown Completed [facility] TDAP Unknown Completed [facility] Varicella (varivax)(chicken pox) Unknown Completed [facility] Influenza Virus Vaccine (3+ yrs) Unknown Completed [facility] MMR Unknown Completed [facility] Influenza Virus Vaccine Quad IM 3+ YRS Unknown Completed [facility] SARS-COV-2 COVID-19 MODERNA 12+ YRS VACCINE Unknown Completed [facility] HEPATITIS A Unknown Completed [facility] HPV Unknown Completed [facility] Influenza Virus Vaccine Unknown Completed [facility] Meningococcal Vaccine Unknown Completed [facility] Rubella Unknown Completed [facility] TDAP Unknown Completed [facility] Varicella (varivax)(chicken pox) Unknown Completed [facility] Influenza Virus Vaccine (3+ yrs) Unknown Completed [facility] MMR Unknown Completed [facility] Influenza Virus Vaccine Quad IM 3+ YRS Unknown Completed [facility] SARS-COV-2 COVID-19 MODERNA 12+ YRS VACCINE Unknown Completed [facility] HEPATITIS A Unknown Completed [facility] HPV Unknown Completed [facility] Influenza Virus Vaccine Unknown Completed [facility] Meningococcal Vaccine Unknown Completed [facility] Rubella Unknown Completed [facility] TDAP Unknown Completed [facility] Varicella (varivax)(chicken pox) Unknown Completed [facility] Influenza Virus Vaccine (3+ yrs) Unknown Completed [facility] MMR Unknown Completed [facility] Influenza Virus Vaccine Quad IM 3+ YRS Unknown Completed [facility] SARS-COV-2 COVID-19 MODERNA 12+ YRS VACCINE Unknown Completed [facility] Vital Signs Vital Name Observation Time Observation Value Comments S ource Systolic blood pressure 2024-02-24 15:21:00 132 mm[Hg] [facility] Diastolic blood pressure 2024-02-24 15:21:00 88 mm[Hg] [facility] Heart rate 2024-02-24 15:21:00 89 /min [facility] Body temperature 2024-02-24 15:21:00 37.11 Alanna [facility] Respiratory rate 2024-02-24 15:21:00 16 /min [facility] Body height 2024-02-24 15:21:00 [facility]6 [facility] weight 2024-02-24 15:21:00 [facility]595 [facility] BMI 2024-02-24 15:21:00 40.34 kg/m2 [facility] Oxygen saturation in Arterial blood by Pulse oximetry 2024-02-24 15:21:00 100 /min [facility] Systolic blood pressure 2023-01-03 19:25:00 126 mm[Hg] [facility] Diastolic blood pressure 2023-01-03 19:25:00 85 mm[Hg] [facility] Heart rate 2023-01-03 19:25:00 75 /min [facility] Body temperature 2023-01-03 19:25:00 37.22 Alanna [facility] Respiratory rate 2023-01-03 19:25:00 16 /min [facility] Body height 2023-01-03 19:25:00 162.6 cm [facility] Body weight 2023-01-03 19:25:00 106.096 [facility] BMI 2023-01-03 19:25:00 40.15 kg/m2 [facility] Oxygen saturation in Arterial blood by Pulse oximetry 2023-01-03 19:25:00 99 /min [facility] Systolic blood pressure 2022-03-12 14:27:00 130 mm[Hg] [facility] Diastolic blood pressure 2022-03-12 14:27:00 84 mm[Hg] [facility] Heart rate 2022-03-12 14:27:00 69 /min [facility] Body temperature 2022-03-12 14:27:00 36.39 Alanna [facility] Body height 2022-03-12 14:27:00 162.6 cm [facility] Body weight 2022-03-12 14:27:00 103.783 [facility] BMI 2022-03-12 14:27:00 39.27 kg/m2 [facility] Procedures Procedure Date / Time Performed Performing Clinicia n Source LIPASE 2024-02-24 16:46:00 [facility]24-02-24 16:46:00 Sonali Ayers [facility] COMP. METABOLIC PANEL (92266) 2024-02-24 16:46:00 Sonali Ayers [facility] CBC WITH DIFF 2024-02-24 16:46:00 [facility] 2024-02-24 16:46:00 Sonali Ayers [facility] POCT TEST 2024-02-24 16:38:00 Sera Ayers ra [facility] US GALL BLADDER 2024-02-24 16:33:04 Sonali Ayers [facility] POCT SARS-COV-2 ANTIGEN (BINAX NOW) 2023-01-03 19:25:00 Denice Livingston [facility] FIBROSCAN 2022-04-10 05:40:00 Jeison Mandel [facility] ASSIGNMENT OF BENEFITS 2022-04-09 20:41:01 Docto r Unassigned, [place] [facility] Encounters Start Date/Time End Date/Time Encounter Type Admission Type Attending [facility] Care Department Encounter ID Source 2024-02-24 10:22:00 2024-02-24 14:05:00 Emergency X SONALI AYERS [facility] ERT [id number] [facility] 2024-02-24 10:22:00 2024-02-24 14:05:00 Emergency Sonali Ayers [facility] 1..840.114 350.1.13.10 4.2.7.2.686 [id number] [facility] 2023-01-03 14:40:00 2023-01-03 15:00:00 Urgent Care Denice Livingston Unknown, Attending [facility] 1..840.114 350.1.13.10 4.2.7.2.686 [id number] [facility] 2023-01-03 14:40:00 2023-01-03 14:40:00 Outpatient DENICE GARCIA [facility] [id number] [facility] 2022-12-25 09:30:00 2022-12-25 09:30:00 Outpatient R ANNIE S OSMAN ANNIE S, OSMAN [facility] [id number] [facility] 2022-05-28 10:00:00 2022-05-28 10:00:00 Outpatient JEISON DOMINGUEZ [facility] [id number] [facility] 2022-04-09 15:40:00 2022-04-09 16:20:00 Surgery Jeison Mandel [facility] 1..840.114 350.1.13.10 4.2.7.2.686 [id number] [facility] 2022-04-09 14:41:00 2022-04-09 15:15:00 Outpatient MALDONADO DOTSON [facility] [id number] [facility] 2022-04-09 14:41:00 2022-04-09 15:15:00 Hospital Encounter Maldonado Barbosa Carla [facility] IC[facility] 1.20.114 350.1.13.10 4.2.7.2.686 [id number] [facility] 2022-04-09 00:00:00 2022-04-09 00:00:00 Orders Only Doctor Unassigned, [place] [facility] 1.20.114 350.1.13.10 4.2.7.2.686 [id number] [facility] 2022-03-26 00:00:00 2022-03-26 00:00:00 Patient Secure Msg Doctor Unassigned, [place] [facility] 1.20.114 350.1.13.10 4.2.7.2.686 [id number] [facility] 2022-03-12 09:15:00 2022-03-12 09:30:00 Blood Bank Custodian Visit [facility] 1.2.114 350.1.13.10 4.2.7.2.686 [id number] [facility] 2022-03-12 08:00:00 2022-03-12 09:00:00 [facility] 1.2.114 350.1.13.10 4.2.7.2.686 [id number] [facility] 2022-03-12 08:00:00 2022-03-12 08:00:00 Outpatient Tova MANDEL JEISON [facility] [id number] [facility] 2022-03-12 00:00:00 2022-03-12 00:00:00 Patient Secure Msg Doctor Unassigned, [place] [facility] 1..840.114 350.1.13.10 4.2.7.2.686 [id number] [facility] 2022-01-15 09:30:00 2022-01-15 09:49:56 Blood Bank Custodian Visit Lab, [facility] 1.840.114 350.1.13.10 4.2.7.2.686 [id number] [facility] 2022-01-15 09:30:00 2022-01-15 09:30:00 Outpatient R AMRITA KHOURY [facility] [id number] [facility] 2022-01-13 00:00:00 2022-01-13 00:00:00 Patient Secure Msg Doctor Unassigned, [place] [facility] 1.840.114 350.1.13.10 4.2.7.2.686 [id number] [facility] 2022-01-12 14:22:20 2022-01-12 23:59:00 Outpatient R AMRITA KHOURY [facility] [id number] [facility] 2022-01-12 13:30:00 2022-01-12 14:19:12 Outpatient R AMRITA KHOURY [facility] [id number] [facility] 2022-01-12 13:30:00 2022-01-12 14:19:12 [facility] 1..840.114 350.1.13.10 4.2.7.2.686 [id number] [facility] 2022-01-12 00:00:00 2022-01-12 00:00:00 Telephone [facility]rit[facility] 1.2.840.114 350.1.13.10 4.2.7.2.686 [id number] [facility] 2022-01-02 00:00:00 2022-01-02 00:00:00 Telephone Gregorio [facility] 1.2.840.114 350.1.13.10 4.2.7.2.686 [id number] [facility] 2022-01-01 15:08:37 2022-01-01 23:59:00 Hospital Encounter Gregorio [facility] 1..840.114 350.1.13.10 4.2.7.2.686 [id number] [facility] 2022-01-01 15:08:05 2022-01-01 15:07:00 Outpatient R [facility] [id number] [facility] 2022-01-01 15:00:00 2022-01-01 15:07:00 Hospital Encounter Gregorio [facility] 1.2.840.114 350.1.13.10 4.2.7.2.686 [id number] [facility] 2021-12-25 11:00:00 2021-12-25 11:15:00 Blood Bank Custodian Visit 2, Adc Lab Gregorio [facility] 1.2.840.114 350.1.13.10 4.2.7.2.686 [id number] [facility] 2021-12-25 11:00:00 2021-12-25 11:00:00 Outpatient Tova [facility] [id number] [facility] 2021-12-25 09:45:00 2021-12-25 10:44:02 Office Visit Marcela Perkins [facility] 1.20.114 350.1.13.10 4.2.7.2.686 [id number] [facility] 2021-12-25 09:45:00 2021-12-25 10:44:02 Outpatient R MARCELA PERKINS [facility] [id number] [facility] 2021-12-25 00:00:00 2021-12-25 00:00:00 Orders Only Doctor Unassigned, [place] [facility] 1.20.114 350.1.13.10 4.2.7.2.686 [id number] [facility] 2021-12-25 00:00:00 2021-12-25 00:00:00 Patient Secure Msg Doctor Unassigned, [place] [facility] 1..114 350.1.13.10 4.2.7.2.686 [id number] [facility] 2021-02-13 11:58:00 2021-02-13 14:59:00 Emergency Alexx Mata [facility] 1.0.114 350.1.13.10 4.2.7.2.686 [id number] [facility] 2021-02-13 11:58:00 2021-02-13 14:59:00 Emergency X Alexx MTAA [facility] ERT [id number] [facility] 2021-02-13 00:00:00 2021-02-13 00:00:00 Orders Only Doctor Unassigned, [place] [facility] 1.2840.114 350.1.13.10 4.2.7.2.686 [id number] [facility] 2020-12-30 00:00:00 2020-12-30 00:00:00 Telephone Goldie Benedict [facility] CH[facility] 1..114 350.1.13.10 4.2.7.2.686 [id number] [facility] 2020-12-26 09:41:31 2020-12-26 11:28:17 Office Visit Goldie Benedict [facility] [employer] [facility] 1..114 350.1.13.10 4.2.7.2.686 [id number] [facility] 2020-12-26 09:30:00 2020-12-26 09:30:00 Outpatient R GOLDIE BENEDICT [facility] [id number] [facility] 2020-11-28 15:40:00 2020-11-28 15:40:00 Outpatient R VLADIMIR NAGEL [facility] [id number] [facility] 2019-11-16 14:36:15 2019-11-16 14:56:15 Laboratory Only Lab, Adc [facility] 1..114 350.1.13.10 4.2.7.2.686 [id number] 2019-11-16 14:20:00 2019-11-16 14:20:00 Outpatient TAYLER COMER [facility] [id number] [facility] 2019-11-16 00:00:00 2019-11-16 00:00:00 Letter (Out) Doctor Unassigned, [place] [facility] 1..114 350.1.13.10 4.2.7.2.686 [id number] Results Test Description Test Time Test Comments Results Result Co mments Source [facility] (47424)2024-02-24 17:27:17* Test Item Value Reference Range Interpretation Comme nts NA (test code = 5617053777) 137 mmol/L 135-145 K (test code = 4996312709) 4.0 mmol/L 3.5-5.0 CL (test code = 9705554529) 104 mmol/L 98-108 CO2 TOTAL (test code = 5993196968) 30 mmol/L 23-31 AGAP (test code = 2315418924) 3 2-16 BUN (test code = 3974697381) 10 mg/dL 7-23 GLUCOSE (test code = 9656388651) 90 mg/dL 70-110 CREATININE (test code = 2160-0) 0.66 mg/dL 0.50-1.04 TOTAL BILI (test code = 8541812846) 0.6 mg/dL 0.1-1.1 CALCIUM (test code = 7192482257) 9.3 mg/dL 8.6-10.6 T PROTEIN (test code = 8976530459) 8.0 g/dL 6.3-8.2 ALBUMIN (test code = 5676590649) 4.0 g/dL 3.5-5.0 ALK PHOS (test code = 9286757372) 97 U/L 34-122 ALTv (test code = 1742-6) 25 U/L 5-35 AST(SGOT) (test code = 8151831575) 22 U/L 13-40 eGFR (test code = 25277-0) 119.7 mL/min/1.73m2 CKD-EPI eGFR (20 21). Assuming creatinine has been stable day-to-day for at least three months, the eGFR indicates Category G1 (>= 90 mL/min/1.73 m2) [facility] 17:26:57* Test Item Value Reference Range Interpretation Comme nts LIPASE (test code = 9365710271) 84 U/L 0-220 Lab Interpretation (test cod e = 59291-8) Normal [facility] WITH [id number] 17:09:13* Test Item Value Reference Range Interpretation Comme nts WBC (test code = 6690-2) 10.29 4.30-11.10 RBC (test code = 789-8) 4.58 3.93-5.25 HGB (test code = 718-7) 13.4 g/dL 11.6-15.0 HCT (test code = 4544-3) 40.7 % 35.7-45.2 MCV (test code = 787-2) 88.9 fL 80.6-95.5 MCH (test code = 785-6) 29.3 pg 25.9-32.8 MCHC (test code = 786-4) 32.9 g/dL 31.6-35.1 RDW-SD (test code = 25249-6) 41.3 fL 39.0-49.9 RDW-CV (test code = 788-0) 12.8 % 12.0-15.5 PLT (test code = 777-3) 223 166-358 MPV (test code = 68869-5) 10.2 fL 9.5-12.9 NRBC/100 WBC (test code = 0076017499) 0.0 0.0-10.0 NRBC x10^3 (test code = 3748373303) See_Comment [Automated me ssage] The system which generated this result transmitted reference range: 10*3/?L. The reference range was not used to interpret this result as normal/abnormal. GRAN MAT (NEUT) % (test code = 770-8) 68.4 % IMM GRAN % (test code = 0111791602) 0.40 % LYMPH % (test code = 736-9) 21.4 % MONO % (test code = 5905-5) 7.8 % EOS % (test code = 713-8) 1.7 % BASO % (test code = 706-2) 0.3 % GRAN MAT x10^3(ANC) (test code = 4506471518) 7.05 10*3/uL 1.88-7.09 IMM GRAN x10^3 (test code = 6073291439) 0.04 10*3/uL 0.00-0.06 LYMPH x10^3 (test code = 731-0) 2.20 10*3/uL 1.32-3.29 MONO x10^3 (test code = 742-7) 0.80 10*3/uL 0.33-0.92 EOS x10^3 (test code = 711-2) 0.17 10*3/uL 0.03-0.39 BASO x10^3 (test code = 704-7) 0.03 10*3/uL 0.01-0.07 [facility] [id number] 16:47:12US GALL BLADDER 02/24/2024 11:21 AM HISTORY: RUQ pain, eval for GB stones/itis COMPARISON: Ultrasound abdomen dated 01/01/2022 FINDINGS: PANCREAS: The visualized portion of the pancreas is unremarkable. LIVER: Partially imaged liver demonstrate diffuse echogenicity. GALLBLADDER: The gallbladder appears mildly distended. Small bowelgallstone is seen within the neck. Additional small gallstone is seen incine images. Almaguer sign was positive. No pericholecystic fluid. The proximal extrahepatic bileduct measures 3 mm. OTHERS: The visualized portions of the right kidney appear normal.[facility] POCT [id number] 16:38:00* Test Item Value Reference Range Interpretation Comme [facility] POCT PREG (test code = 1605) Negative On board controls acceptable with C Line (test code = 3574) Yes POCT PREG LOT # (test code = 3575) [id number] POCT PREG TEST DATE ( test code = 3576) 02/07/2025 Lab Interpretation (test cod e = 01064-5) [facility] SARS[facility]OV-2 ANTIGEN (BINAX NOW)2023-01-03 19:40:00* Test Item Value Reference Range Interpretation Comme [facility] POCT SARS-COV-2 ANTIGEN (autumn t code = 49831-0) Not Detected Not Detected On board controls acceptable with C Line (test code = 3574) Yes Lab Interpretation (test cod e = 44788-5) Normal [facility] Notes Date/Time Note Provider Source 2024-02-24 14:04:14 Written/verbal d/c instructions, out of er no distress Karrie Anglin RN [facility] 2024-02-24 10:20:41 CC: patient presents to the ER with complaints of right sided upper abdominal pain that began Saturday evening. Awake, alert, oriented, resp reg unlabored, skin warm and dry, color appropriate for race, moves all ext without difficulty, amb without assistance. Appears in no distress. Yessy Penaloza RN [facility] 2024-02-24 10:07:00 [facility] Emergency Department Note Patient Name: Sendy Zamora Date of : 1990 33 year old female Treatment [facility] Primary Care Physician: Amrita Khoury Patient Escorted by: Family [5] Mode of Arrival: Personal means [1] EMS Treatment Prior to ED Arrival: [employer] treatment: None Travel and Exposure Screening: Symptoms Does patient have any of these symptoms?: (not recorded) Exposure Screening Has patient had contact with someone with a communicable disease in the last month?: (not recorded) Diseases exposed to:: (not recorded) Is Patient ?: (not recorded) Exposure Date: (not recorded) Chief Complaint: Chief Complaint Patient presents with Abdominal Pain History of Present Illness: The patient presents from home for evaluation of right upper quadrant abdominal pain that has been constant since Saturday. It is Saturday morning. She also complains of nausea and vomiting. She did have a Tylenol with codeine yesterday for pain and reports it did not help much. She states her last menstrual period was approximate 45 days ago but she denies being . She has had a previous tubal ligation. She also reports a history of gallbladder stones in the past. No chest pain or pressure. No shortness of breath. No history of high blood pressure or diabetes. Here for evaluation. Past Medical History/Immunizations: Past Medical History: Diagnosis Date Chlamydia 2013 Depression States has never been Dx, but states feels sad sometimes. Denies any S/I or H/I at this time. Multiparity 09/09/2013 Desires Paragard. Screening for diabetes mellitus 04/25/2015 STD (sexually transmitted disease) Vitamin D deficiency 01/17/2022 Tetanus received in last 5 years: Unknown Allergies: No Known Allergies Past Social History: Tobacco Use Every Day; 0.5 packs/day; Smoked an average of 0.5 packs/day for 6.0 years; Types: Cigarettes Passive Exposure: Never Smokeless Tobacco: Never used smokeless tobacco. Vaping Use Never used Alcohol Use Yes; 0.0 standard drinks of alcohol per week; 0 Standard drinks or equivalent. Comments: socially Drug Use No. Sexual Activity Sexually active; Partners: Male; Control/Protection: None. Past Surgical History: Past Surgical History: Procedure Laterality Date CONTINUOUS MONITORING (INTERNAL) 04/17/2010 EPIDURAL CATHETER INSERTION 04/17/2010 FIBROSCAN (SHX) N/A 04/09/2022 Surgeon: Jeison Mandel FNP; Location: ENDOSCOPY ([facility]) OR LOCATION FULL ROUT OBSTE CARE,VAGINAL DELIV 03/11/2012 OBSTE CARE,VAG DELIV+ 04/17/2010 OXYTOCIN INDUCTION/AUGMENTATION REFERENCE LINK ORDER 04/17/2010 REPAIR VAGINA/PERINEUM 04/17/2010 TUBAL LIGATION 07/05/2015 TUBAL LIGATION Bilateral 07/05/2015 Surgeon: Liliana Cota MD; Location: Labor and Delivery - [place] Review of Systems: Review of Systems Constitutional: Negative for chills and fever. Respiratory: Negative for cough and shortness of breath. Cardiovascular: Negative for chest pain. Gastrointestinal: Positive for abdominal pain, nausea and vomiting. Genitourinary: Negative for dysuria. Musculoskeletal: Negative for arthralgias, neck pain and neck stiffness. Skin: Negative for wound. Neurological: Negative for dizziness. Psychiatric/Behavioral: Negative for agitation. Endocrine: Negative for goiter. Physical Exam: ED Triage Vitals [02/24/24 1021] Weight 106.6 kg (235 lb) Actual or estimated Estimated by patient/family report Height 1.626 m (5' 4") BP 132/88 Pulse 89 Resp 16 Temp 37.1 ?C (98.8 ?F) Temp source Oral SpO2 100 % Measured on Room air Physical Exam Vitals and nursing note reviewed. Constitutional: Appearance: Normal appearance. She is obese. HENT: Head: Normocephalic and atraumatic. Cardiovascular: Rate and Rhythm: Normal rate and regular rhythm. Pulmonary: Effort: Pulmonary effort is normal. No respiratory distress. Abdominal: General: There is no distension. Palpations: There is no mass. Tenderness: There is abdominal tenderness in the right upper quadrant. There is no guarding or rebound. Positive signs include Almaguer's sign. Musculoskeletal: General: Normal range of motion. Cervical back: Normal range of motion and neck supple. Skin: General: Skin is warm. Neurological: General: No focal deficit present. Mental Status: She is alert and oriented to person, place, and time. Radiology: US GALL BLADDER Final Result US GALL BLADDER 02/24/2024 11:21 AM HISTORY: RUQ pain, eval for GB stones/itis COMPARISON: Ultrasound abdomen dated 01/01/2022 FINDINGS: PANCREAS: The visualized portion of the pancreas is unremarkable. LIVER: Partially imaged liver demonstrate diffuse echogenicity. GALLBLADDER: The gallbladder appears mildly distended. Small bowel gallstone is seen within the neck. Additional small gallstone is seen in cine images. Almaguer sign was positive. No pericholecystic fluid. The proximal extrahepatic bile duct measures 3 mm. OTHERS: The visualized portions of the right kidney appear normal. IMPRESSION Mildly distended gallbladder with impacted stone and positive Almaguer's sign, findings suggestive of acute cholecystitis. Diffuse hepatic steatosis. Lab Results: Lab Results URINALYSIS - Abnormal Result Value Ref Range APPEARANCE Clear Clear COLOR Yellow Yellow PH 8.0 4.8 - 8.0 SP GRAVITY 1.010 1.003 - 1.030 GLU U QUAL Normal Normal BLOOD Negative Negative KETONES Negative Negative PROTEIN Negative Negative UROBILIN 2.0 mg/dL (*) Normal BILIRUBIN Negative Negative NITRITE Negative Negative LEUK CHAZ Negative Negative RBC/HPF <1 0 - 3 HPF WBC/HPF 2 0 - 5 HPF BACTERIA Few (*) Negative SQ EPITH 5 HPF LIPASE - Normal LIPASE 84 0 - 220 U/L MAGNESIUM - Normal MAGNESIUM 1.8 1.7 - 2.4 mg/dL POCT TEST - Normal POCT PREG Negative On board controls acceptable with C Line Yes POCT PREG LOT # [id number] POCT PREG TEST DATE 02/07/2025 CBC WITH DIFF WBC 10.29 4.30 - 11.10 10*3/?L RBC 4.58 3.93 - 5.25 10*6/?L HGB 13.4 11.6 - 15.0 g/dL HCT 40.7 35.7 - 45.2 % MCV 88.9 80.6 - 95.5 fL MCH 29.3 25.9 - 32.8 pg MCHC 32.9 31.6 - 35.1 g/dL RDW-SD 41.3 39.0 - 49.9 fL RDW-CV 12.8 12.0 - 15.5 % PLT 223 166 - 358 10*3/?L MPV 10.2 9.5 - 12.9 fL NRBC/100 WBC 0.0 0.0 - 10.0 /100 WBCs NRBC x10 3 <0.01 10*3/?L GRAN MAT (NEUT) % 68.4 % IMM GRAN % 0.40 % LYMPH % 21.4 % MONO % 7.8 % EOS % 1.7 % BASO % 0.3 % GRAN MAT x10 3 (ANC) 7.05 1.88 - 7.09 10*3/uL IMM GRAN x10 3 0.04 0.00 - 0.06 10*3/uL LYMPH x10 3 2.20 1.32 - 3.29 10*3/uL MONO x10 3 0.80 0.33 - 0.92 10*3/uL EOS x10 3 0.17 0.03 - 0.39 10*3/uL BASO x10 3 0.03 0.01 - 0.07 10*3/uL COMP. METABOLIC PANEL (96973) NA 137 135 - 145 mmol/L K 4.0 3.5 - 5.0 mmol/L CL 104 98 - 108 mmol/L CO2 TOTAL 30 23 - 31 mmol/L AGAP 3 2 - 16 BUN 10 7 - 23 mg/dL GLUCOSE 90 70 - 110 mg/dL CREATININE 0.66 0.50 - 1.04 mg/dL TOTAL BILI 0.6 0.1 - 1.1 mg/dL CALCIUM 9.3 8.6 - 10.6 mg/dL T PROTEIN 8.0 6.3 - 8.2 g/dL ALBUMIN 4.0 3.5 - 5.0 g/dL ALK PHOS 97 34 - 122 U/L ALTv 25 5 - 35 U/L AST(SGOT) 22 13 - 40 U/L eGFR 119.7 mL/min/1.73m2 EKG: If EKG completed, see Procedure Note. Orders and Treatments: Orders Placed This Encounter Procedures US GALL BLADDER CBC WITH DIFF COMP. METABOLIC PANEL (03513) LIPASE Magnesium POCT TEST URINALYSIS Orders Placed This Encounter Medications ketorolac (TORADOL) injection 30 mg ondansetron (ZOFRAN (PF)) injection 4 mg ketorolac 10 mg tablet First Provider Eval: ED Events Date/Time Event User Comments 02/24/24 1014 Medical Screening Begins SONALI AYERS DO -- 02/24/24 1014 First Provider Evaluation SONALI AYERS DO -- ED COURSE Diagnosis/Impression as of 02/24/24 1356 RUQ pain Calculus of gallbladder without cholecystitis without obstruction Procedures: Procedures MDM: Medical Decision Making The patient presents from home for evaluation of right upper quadrant abdominal pain that has been constant since Saturday. It is Saturday morning. She also complains of nausea and vomiting. She did have a Tylenol with codeine yesterday for pain and reports it did not help much. She states her last menstrual period was approximate 45 days ago but she denies being . She has had a previous tubal ligation. She also reports a history of gallbladder stones in the past. No chest pain or pressure. No shortness of breath. No history of high blood pressure or diabetes. Vital signs are stable here in the ER. The patient is obese. She is right upper quadrant tenderness on examination and a positive Almaguer sign. Will check laboratory studies and give the patient pain medication. Will also obtain a right upper quadrant ultrasound to evaluate for cholelithiasis versus acute cholecystitis. Final disposition pending. 1355 -the patient is doing well here in the ER. Her pain has resolved with administration of the medications listed above. Her abdomen is soft and nontender on examination. Her laboratory studies are unremarkable including no leukocytosis and normal LFTs as well as a normal lipase. Right upper quadrant ultrasound does show cholelithiasis. She remained stable here in the ER and is okay for discharge home with outpatient follow-up with general surgery regarding elective removal of her gallbladder. Advised her to eat a diet low in fatty and fried foods to help with her pain. Problems Addressed: Calculus of gallbladder without cholecystitis without obstruction: acute illness or injury RUQ pain: acute illness or injury Amount and/or Complexity of Data Reviewed Labs: ordered. Decision-making details documented in ED Course. Radiology: ordered and independent interpretation performed. Decision-making details documented in ED Course. Risk OTC drugs. Prescription drug management. Flowsheet Documentation: Scoring Tools: No data recorded Disposition/Condition: ED Disposition ED Disposition Discharge Condition Stable Comment -- Discharge Medications: Patient's Medications START taking these medications KETOROLAC 10 MG TABLET Take 1 tablet by mouth every 6 (six) hours as needed for Pain (scale 1-3). CONTINUE taking these medications which have NOT CHANGED PANTOPRAZOLE 40 MG EC TABLET Take 1 tablet by mouth in the morning. START taking Modified Medications as Prescribed No medications on file STOP taking these medications No medications on file Follow-up: Contact information for follow-up Amrita Khoury PA Specialty: PHYSICIAN CD [employer]URING SUPERVISOR, FAMILY MEDICINE Relationship: PCP - General [facility] [facility] [id number] Electronically signed by: Sonali Ayers DO 02/24/24 [id number] [facility]
[2024-02-25] MEDS ORDERED: ACETAMINOPHEN 325 MG TABLET ONE (21:14)
[2024-02-25 21:36] LABS: Specific Gravity 1.024 (1.005-1.030)
[2024-02-25 21:38] LABS: Specific Gravity 1.024 (1.005-1.030); Sqamous Epithelial <5 /HPF (None Seen); Urine Bacteria <20 /HPF (<20); Urine Bilirubin NEGATIVE (Negative); Urine Blood Negative (Negative); Urine Clarity Turbid (Clear); Urine Color Light-Yellow (Yellow); Urine Crystals Unidentified Few /HPF (None Seen); Urine Culture Reflex Order NOT NEEDED; Urine Glucose NEGATIVE (Negative); Urine Ketones NEGATIVE (Negative); Urine Microscopic Reflex YN ORDER UMIC; Urine Mucus Slight /HPF (None Seen); Urine Nitrite NEGATIVE (Negative); Urine Protein NEGATIVE (Negative); Urine RBC <5 /HPF (None Seen); Urine Urobilinogen 1+ (Normal); Urine WBC <5 /HPF (<5); Urine Yeast (Budding) Trace /HPF (None Seen)
--- NOTE | 2024-02-25 21:45 | RAD REPORT ---
Abdomen Exam Limited: 02/25/2024 9:32 PM CLINICAL HISTORY: ABD PAIN STUDY: Limited right upper quadrant ultrasound of abdomen. COMPARISON: CT 07/04/2023 FINDINGS: Liver: No significant abnormality. Bile ducts: No intrahepatic or extrahepatic biliary dilatation. Common bile duct measures 3 mm. Gallbladder: Cholelithiasis. The gallbladder is mildly thickened. A stone is present at gallbladder n shaniqua. IMPRESSION: Distended gallbladder with mild gallbladder wall thickening and stone impacted at the gallbladder nec k. This could reflect acute cholecystitis in the appropriate clinical setting.
[2024-02-25 21:49] LABS: Absolute Eosinophils 0.2 K/uL (0-0.5); Absolute Lymphocytes (CBC) 1.4 K/uL (0.7-4.9); Absolute Monocytes 0.7 K/uL (0.1-1.3); Absolute Neutrophil 6.2 K/uL (1.8-8.0); Basophils % 0.2 % (0-1.3); Hemoglobin 13.1 g/dL (12.0-15.0); Lymphocytes % 16.6 % (15.3-44.8); MCHC 33.4 g/dL (32.0-36.0); MCV 86.6 fL (80-100); MPV 7.7 fL (7.6-11.3); Monocytes % 8.7 % (3.3-12.3); Neutrophils % 72.5 % (41.7-73.7); Platelets 237 thou/uL (152-406); RBC Red Blood Cell Count 4.51 M/uL (3.86-4.86); Red Cell Distribution Width 13.4 % (12.1-15.2)
[2024-02-25 21:57] LABS: Albumin 3.1 g/dL (3.4-5.0); Albumin/Globulin Ratio 0.7 (1.1-1.8); Anion Gap 9.9 mEq/L (5.0-15.0); Bilirubin Total 0.4 mg/dL (0.2-1.0); Globulin 4.6 g/dL (2.3-3.5); Potassium 3.9 mEq/L (3.5-5.1); Protein, Total 7.7 g/dL (6.4-8.2)
[2024-02-25] MEDS ORDERED: KETOROLAC 30 MG/ML INJ ONE (22:01)
[2024-02-25] MEDS ORDERED: METOCLOPRAMIDE 10 MG/2mL INJ ONE (22:02)
[2024-02-25] MEDS ORDERED: MORPHINE 4 MG/ML SYR ONE (22:02)
[2024-02-25] MEDS ORDERED: NA CHLORIDE 0.9% 1,000 ML ONE (22:02)
--- NOTE | 2024-02-25 22:19 | RAD REPORT ---
EXAMINATION: CT ABDOMEN AND PELVIS WITH CONTRAST CLINICAL INDICATION: Female, 33 years old.ABD PAIN TECHNIQUE: CT abdomen and pelvis was performed, after the administration of IV contrast, [facility]. Axial, sagittal and coronal reconstructions were obtained. One or more of the following dose reduction techniques were used: Automated exposure control, adjustment of the mA and/o r kV according to patient size, and/or iterative reconstruction. Unless otherwise specified, incidental findings do not require dedicated imaging follow-up. [id number]. COMPARISON: Same-day ultrasound, 07/04/2023 CT FINDINGS: LOWER CHEST: Mild cardiomegaly. Mild cervical rectal thickening of the distal esophagus which could r eflect mild esophagitis. LIVER: Hepatic steatosis GALLBLADDER/BILE DUCT: Distended gallbladder.?No biliary duct dilatation. Cholelithiasis. Stone prese nt in the region of the gallbladder neck. PANCREAS: No significant abnormality. SPLEEN: Normal size. No focal lesion. ADRENALS: Normal; no mass. KIDNEYS AND URETERS: Normal size and contour. No hydronephrosis. GASTROINTESTINAL TRACT: Stomach is non-dilated. Small bowel has normal course and caliber. No colonic wall thickening or pericolonic inflammatory changes. Normal appendix. PERITONEUM: Trace pelvic free fluid which is likely physiologic. LYMPH NODES: No lymphadenopathy. ABDOMINAL AORTA AND OTHER VESSELS: Normal caliber aorta and IVC. URINARY BLADDER: Normal contour. REPRODUCTIVE ORGANS: No pathologic process MUSCULOSKELETAL: No acute or suspicious osseous abnormality. ADDITIONAL FINDINGS: None. IMPRESSION: Cholelithiasis with stone impacted at the gallbladder neck. The gallbladder is distended. No perichol ecystic inflammatory changes identified, however. Nevertheless, early or mild acute cholecystitis difficult to exclude. Normal appendix.
[2024-02-25] MEDS ORDERED: ONDANSETRON 4 MG/2 ML VIAL IV PRN (23:44)
[2024-02-25] MEDS: NA CHLORIDE 0.9% 1,000 ML IV SCH (23:45)
--- NOTE | 2024-02-25 23:45 | EDPHYS ---
Physician Documentation [facility] Name: Bianca Zamora Age: 33 yrs Sex: Female : 1990 Arrival Date: 02/25/2024 Time: 20:13 Bed 18 Private MD: ED Physician Bonilla Waller HPI: 02/24 20:38 This 33 yrs old Female presents to ER via Unassigned with complaints of sp4 Abdominal Pain, Fever. 02/25 06:14 This is 73-year-old female with history of 4 prior pregnancies for deliveries, arrives sp4 with a right upper abdominal pain headache fever and discomfort associated with nausea. Symptoms present since Saturday running 4 days ago.. Historical: - Allergies: 02/24 21:15 No Known Allergies; cm10 - PMHx: 21:15 Headaches; Gallstone; cm10 - PSHx: 21:15 tubal ligation; cm10 - Immunization history:: Adult Immunizations up to date. - Infectious Disease History:: Denies. - Social history:: Smoking status: Patient reports the use of cigarette tobacco products, denies chronic smoking, but will smoke occasionally. - Family history:: not pertinent. ROS: 02/25 06:14 Constitutional: Negative for fever, chills, and weight loss, positive fever, positive sp4 right upper abdominal pain, positive headache, positive nausea All other systems are negative, Exam: 06:14 Constitutional: This is a well developed, well nourished patient who is awake, alert, sp4 and in no acute distress. Head/Face: Normocephalic, atraumatic. Eyes: Pupils equal round and reactive to light, extra-ocular motions intact. Lids and lashes normal. Conjunctiva and sclera are not injected. Cornea within normal limits. Periorbital areas with no swelling, redness, or edema. ENT: Nares patent. No nasal discharge, no septal abnormalities noted. Tympanic membranes are normal and external auditory canals are clear. Oropharynx with no redness, swelling, or masses, exudates, or evidence of obstruction, uvula midline. Mucous membranes moist. Neck: Trachea midline, no thyromegaly or masses palpated, and no cervical lymphadenopathy. Supple, full range of motion without nuchal rigidity, or vertebral point tenderness. Chest/axilla: Normal chest wall appearance and motion. Nontender with no deformity. No lesions are appreciated. Cardiovascular: Regular rate and rhythm with a normal S1 and S2. No gallops, murmurs, or rubs. Normal PMI, no JVD. No pulse deficits. Respiratory: Lungs have equal breath sounds bilaterally, clear to auscultation and percussion. No rales, rhonchi or wheezes noted. No increased work of breathing, no retractions or nasal flaring. Abdomen/GI: Soft, with normal bowel sounds. No distension or tympany. No guarding or rebound. Positive right upper quadrant abdominal tenderness Back: No spinal tenderness. No costovertebral tenderness. Skin: Warm, dry with normal turgor. Normal color with no rashes, no lesions, and no evidence of cellulitis. MS/ Extremity: Pulses equal, no cyanosis. Neurovascular intact. Full, normal range of motion. Neuro: Awake and alert, GCS 15, oriented to person, place, time, and situation. Cranial nerves II-XII grossly intact. Motor strength 5/5 in all extremities. Sensory grossly intact. Psych: Awake, alert, with orientation to person, place and time. Behavior, mood, and affect are within normal limits Vital Signs: 02/24 21:13 BP 122 / 75; Pulse 115; Resp 18; Temp 100.5(O); Pulse Ox 99% on R/A; Weight 106.59 kg; cm10 Height 5 ft. 4 in. ; Pain 01/13; 22:35 BP 112 / 65; Pulse 96; Resp 16; Pulse Ox 97% on R/A; jb4 02/25 00:00 BP 101 / 89; Pulse 86; Resp 16; Pulse Ox 97% on R/A; jb4 01:44 BP 108 / 65; Pulse 79; Resp 16; Temp 97.7(TE); Pulse Ox 97% on R/A; jb4 02/24 21:13 Body Mass Index 40.34 (106.59 kg, 162.56 cm) cm10 02/24 21:13 Pain Scale: Adult cm10 Boykins Coma Score: 06:14 Eye Response: spontaneous(4). Motor Response: obeys commands(6). Verbal Response: sp4 oriented(5). Total: 15. MDM: 02/24 20:33 Medical Screening Exam initiated sp4 23:28 ED course: EXAMINATION: CTABDOMEN AND PELVIS WITH CONTRAST CLINICAL INDICATION: Female, sp4 33 years old.ABD PAIN TECHNIQUE: CT abdomen and pelvis was performed, after the administration of IV contrast, as per department protocol. Axial, sagittal and coronal reconstructions were obtained. One or more of the following dose reduction techniques were used: Automated exposure control, adjustment of the mA and/or kV according to patient size, and/or iterative reconstruction. Unless otherwise specified, incidental findings do not require dedicated imaging follow-up. [id number]. COMPARISON: Same-day ultrasound, 07/04/2023 CT FINDINGS: LOWER CHEST: Mild cardiomegaly. Mild cervical rectal thickening of the distal esophagus which could reflect mild esophagitis. LIVER: Hepatic steatosis GALLBLADDER/BILE DUCT: Distended gallbladder.?No biliary duct dilatation. Cholelithiasis. Stone present in the region of the gallbladder neck. PANCREAS: No significant abnormality. SPLEEN: Normal size. No focal lesion. ADRENALS: Normal; no mass. KIDNEYS AND URETERS: Normal size and contour. No hydronephrosis. GASTROINTESTINAL TRACT: Stomach is non-dilated. Small bowel has normal course and caliber. No colonic wall thickening or pericolonic inflammatory changes. Normal appendix. PERITONEUM: Trace pelvic free fluid which is likely physiologic. LYMPH NODES: No lymphadenopathy. ABDOMINAL AORTA AND OTHER VESSELS: Normal caliber aorta and IVC. URINARYBLADDER: Normal contour. REPRODUCTIVE ORGANS: No pathologic process MUSCULOSKELETAL: No acute or suspicious osseous abnormality. ADDITIONAL FINDINGS: None. IMPRESSION: Cholelithiasis with stone impacted at the gallbladder neck. The gallbladder is distended. No pericholecystic inflammatory changes identified, however. Nevertheless, early or mild acute cholecystitis difficult to exclude. Normal appendix.. ED course: Abdomen Exam Limited: 02/25/2024 9:32 PM CLINICAL HISTORY: ABD PAIN STUDY: Limited right upper quadrant ultrasound of abdomen. COMPARISON: CT 07/04/2023 FINDINGS: Liver: No significant abnormality. Bile ducts: No intrahepatic or extrahepatic biliary dilatation. Common bile duct measures 3 mm. Gallbladder: Cholelithiasis. The gallbladder is mildly thickened. A stone is present at gallbladder neck. IMPRESSION: Distended gallbladder with mild gallbladder wall thickening and stone impacted at the gallbladder neck. This could reflect acute cholecystitis in the appropriate clinical setting. . 02/25 06:16 Differential diagnosis: viral Infection, bacterial infection, URI, bronchitis, sp4 pneumonia UTI, gastroenteritis. Data reviewed: vital signs, nurses notes, lab test result(s), CBC, electrolytes, hepatic panel, urinalysis, radiologic studies, CT scan, ultrasound. Consideration of Admission/Observation Escalation of care including admission/observation considered. ED course: Patient warrants admission for acute cholecystitis. Dr. Jimenez with general surgery consulted. 02/24 20:38 Order name: CBC with Diff; Complete Time: 23:16 sp4 02/24 20:38 Order name: CMP; Complete Time: 23:16 sp4 02/24 20:38 Order name: Lipase; Complete Time: 23:16 sp4 02/24 20:38 Order name: Test, Urine; Complete Time: 23:16 sp4 02/24 20:38 Order name: Urinalysis w/ reflexes; Complete Time: 23:16 sp4 02/24 21:08 Order name: CRP; Complete Time: 23:16 sp4 02/24 23:48 Order name: Urinalysis w/ reflexes EDMS 02/24 23:48 Order name: CBC with Automated Diff EDMS 02/24 23:48 Order name: CBC with Automated Diff EDMS 02/24 23:48 Order name: Comprehensive Metabolic Panel EDMS 02/24 23:48 Order name: Comprehensive Metabolic Panel EDMS 02/24 23:48 Order name: Magnesium EDMS 02/24 23:48 Order name: Magnesium EDMS 02/24 21:07 Order name: CT Abd/Pelvis - IV Contrast Only; Complete Time: 23:16 sp4 02/24 21:08 Order name: US Abdomen Limited; Complete Time: 23:16 sp4 02/24 20:38 Order name: IV Saline Lock; Complete Time: 21:54 sp4 02/24 20:38 Order name: Labs collected and sent; Complete Time: 21:54 sp4 Administered Medications: 02/24 21:18 Drug: Acetaminophen PO 650 mg PO once Route: PO; cm10 02/25 01:38 Follow up: Response: No adverse reaction; Marked relief of symptoms; Temperature is jb4 decreased 02/24 22:33 Drug: metoCLOPramide IVP 10 mg IVP once; over 1 to 2 minutes Route: IVP; Site: right jb4 wrist; 02/25 00:22 Follow up: Response: No adverse reaction; Marked relief of symptoms jb4 02/24 22:34 Drug: NS 0.9% IV 1000 ml IV at 1000 ml once; to be given as a bolus over 60 minutes jb4 Route: IV; Rate: 1000 ml; Site: right wrist; 23:34 Follow up: Response: No adverse reaction; Marked relief of symptoms; IV Status: jb4 Completed infusion; IV Intake: 1000ml 22:34 Drug: morphine IVP or IV 4 mg IVP once over 4 mins Route: IVP; Infused Over: 4 mins; jb4 Site: right wrist; 02/25 00:21 Follow up: Response: No adverse reaction; Marked relief of symptoms; Pain is decreased jb4 02/24 22:34 Drug: Ketorolac IVP 30 mg IVP once Route: IVP; Site: right wrist; jb4 02/25 00:22 Follow up: Response: No adverse reaction; Marked relief of symptoms; Pain is decreased jb4 00:05 Drug: Rocephin - Rocephin (cefTRIAXone) IVPB 1 grams IVPB once over 30 mins; (mix in 50 jb4 mL NS) Route: IVPB; Infused Over: 30 mins; Site: right wrist; 00:35 Follow up: Response: No adverse reaction; IV Status: Completed infusion; IV Intake: [id number] 00:47 Drug: metroNIDAZOLE IVPB 500 mg 100 ml IVPB at 200 ml/hr once over 30 mins Volume: 100 jb4 ml; Route: IVPB; Rate: 200 ml/hr; Infused Over: 30 mins; Site: right wrist; 01:17 Follow up: Response: No adverse reaction; IV Status: Completed infusion; IV Intake: jb4 100ml 01:35 Drug: D5-1/2 NS IV 1000 ml IV at 125 ml/hr continuous Route: IV; Rate: 125 ml/hr; Site: [facility]; 01:45 Follow up: IV Status: Infusion continued upon admission jb4 Disposition: 06:17 Chart complete. sp4 Disposition Summary: 02/25/24 23:45 Hospitalization Ordered Notes: Hospitalization Status: Observation sp4 Provider: Christina Mann4 Location: Telemetry/MedSur (observation) sp4 Condition: Stable sp4 Problem: new sp4 Symptoms: have improved sp4 Bed/Room Type: Standard sp4 Room Assignment: 223(02/25/24 23:55) rv1 Diagnosis - Acute cholecystitis sp4 - Acute calculus cholecystitis sp4 Forms: - Medication Reconciliation Form sp4 - SBAR form sp4 - Leadership Thank You Letter sp4 Signatures: Dispatcher [employer] EDMS Artie Dykes RN RN jb4 Lenka Harden rv1 Bonilla Waller MD MD sp4 Karen Fowler RN RN cm10 Corrections: (The following items were deleted from the chart) 02/24 21:08 21:08 C-REACTIVE PROTEIN+C.LAB.BRZ ordered. EDMS EDMS 23:55 23:45 sp4 rv1
--- NOTE | 2024-02-25 23:45 | ER ---
Nurse's Notes [facility] Name: Bianca Zamora Age: 33 yrs Sex: Female : 1990 Arrival Date: 02/25/2024 Time: 20:13 Bed 18 Private MD: Diagnosis: Acute cholecystitis;Acute calculus cholecystitis Presentation: 02/24 21:13 Chief complaint: Patient states: RUQ abdominal pain onset Saturday. Pt states that she cm10 was seen at [facility] yesterday and was told that she had gallstones. PT reports today she started having chills, nausea and fever. Coronavirus screen: Client denies travel out of the [place] in the last 14 days. Ebola Screen: Patient denies travel to an Ebola-affected area in the 21 days before illness onset. No symptoms or risks identified at this time. Initial Sepsis Screen: Does the patient meet any 2 criteria? HR > 90 bpm. Does the patient have a suspected source of infection? No. Patient's initial sepsis screen is negative. Risk Assessment: Do you want to hurt yourself or someone else? Patient reports no desire to harm self or others. Onset of symptoms was February 21, 2024. 21:13 Method Of Arrival: Ambulatory cm10 21:13 Acuity: LOAN 3 cm10 Triage Assessment: 21:15 General: Appears in no apparent distress. uncomfortable, Behavior is calm, cooperative. cm10 Neuro: No deficits noted. Level of Consciousness is awake, alert, obeys commands, Oriented to person, place, time, situation, Appropriate for age. Respiratory: No deficits noted. Airway is patent Respiratory effort is even, unlabored, Respiratory pattern is regular, symmetrical. Historical: - Allergies: 21:15 No Known Allergies; cm10 - PMHx: 21:15 Headaches; Gallstone; cm10 - PSHx: 21:15 tubal ligation; cm10 - Immunization history:: Adult Immunizations up to date. - Infectious Disease History:: Denies. - Social history:: Smoking status: Patient reports the use of cigarette tobacco products, denies chronic smoking, but will smoke occasionally. - Family history:: not pertinent. Screenin/23 02:01 [facility] ED Fall Risk Assessment (Adult) History of falling in the last 3 months, jb4 including since admission No falls in past 3 months (0 pts) Confusion or Disorientation No (0 pts) Intoxicated or Sedated No (0 pts) Impaired Gait No (0 pts) Mobility Assist Device Used No (0 pt) Altered Elimination No (0 pt) Score/Fall Risk Level 0 - 2 = Low Risk Oriented to surroundings, Maintained a safe environment. Abuse screen: Denies threats or abuse. Nutritional screening: No deficits noted. Tuberculosis screening: No symptoms or risk factors identified. Assessment: 02/24 22:00 General: Appears in no apparent distress. comfortable, Behavior is calm, cooperative, jb4 appropriate for age. Pain: Complains of pain in right upper quadrant Pain does not radiate. Pain currently is 9 out of 10 on a pain scale. Neuro: Level of Consciousness is awake, alert, obeys commands, Oriented to person, place, time, situation. Cardiovascular: Patient's skin is warm and dry. Respiratory: Airway is patent Respiratory effort is even, unlabored, Respiratory pattern is regular, symmetrical. GI: Abdomen is non-distended, obese, Reports upper abdominal pain. : No signs and/or symptoms were reported regarding the genitourinary system. EENT: No signs and/or symptoms were reported regarding the EENT system. Derm: Skin is intact, Skin is pink, warm \T\ dry. Musculoskeletal: Circulation, motion, and sensation intact. Range of motion: intact in all extremities. 23:00 Reassessment: Patient appears in no apparent distress at this time. Patient and/or jb4 family updated on plan of care and expected duration. Pain level reassessed. Patient is alert, oriented x 3, equal unlabored respirations, skin warm/dry/pink. 02/25 00:00 Reassessment: Patient appears in no apparent distress at this time. Patient and/or jb4 family updated on plan of care and expected duration. Pain level reassessed. Patient is alert, oriented x 3, equal unlabored respirations, skin warm/dry/pink. 01:00 Reassessment: Patient appears in no apparent distress at this time. Patient and/or jb4 family updated on plan of care and expected duration. Pain level reassessed. Patient is alert, oriented x 3, equal unlabored respirations, skin warm/dry/pink. 02:00 Reassessment: Patient appears in no apparent distress at this time. Patient and/or jb4 family updated on plan of care and expected duration. Pain level reassessed. Patient is alert, oriented x 3, equal unlabored respirations, skin warm/dry/pink. Vital Signs: 02/24 21:13 BP 122 / 75; Pulse 115; Resp 18; Temp 100.5(O); Pulse Ox 99% on R/A; Weight 106.59 kg; cm10 Height 5 ft. 4 in. ; Pain 9/10; 22:35 BP 112 / 65; Pulse 96; Resp 16; Pulse Ox 97% on R/A; jb4 02/25 00:00 BP 101 / 89; Pulse 86; Resp 16; Pulse Ox 97% on R/A; jb4 01:44 BP 108 / 65; Pulse 79; Resp 16; Temp 97.7(TE); Pulse Ox 97% on R/A; jb4 02/24 21:13 Body Mass Index 40.34 (106.59 kg, 162.56 cm) cm10 02/24 21:13 Pain Scale: Adult cm10 Cassandra Coma Score: 06:14 Eye Response: spontaneous(4). Motor Response: obeys commands(6). Verbal Response: sp4 oriented(5). Total: 15. ED Course: 02/24 20:17 Patient arrived in ED. gm2 20:22 Bonilla Waller MD is Attending Physician. sp4 21:15 Triage completed. cm10 21:16 Arm band placed on Patient placed in waiting room. cm10 21:34 US Abdomen Limited In Process Unspecified. EDMS 22:13 CT Abd/Pelvis - IV Contrast Only In Process Unspecified. EDMS 22:35 Artie Dykes, RN is Primary Nurse. jb4 23:31 Christina Mann MD is Hospitalizing Provider. sp4 02/25 02:01 Patient has correct armband on for positive identification. Bed in low position. Call jb4 light in reach. Side rails up X 1. Provided Education on: need for admit. 02:01 No provider procedures requiring assistance completed. Patient admitted, IV remains in jb4 place. Administered Medications: 02/24 21:18 Drug: Acetaminophen PO 650 mg PO once Route: PO; cm10 02/25 01:38 Follow up: Response: No adverse reaction; Marked relief of symptoms; Temperature is jb4 decreased 02/24 22:33 Drug: metoCLOPramide IVP 10 mg IVP once; over 1 to 2 minutes Route: IVP; Site: right jb4 wrist; 02/25 00:22 Follow up: Response: No adverse reaction; Marked relief of symptoms jb4 02/24 22:34 Drug: NS 0.9% IV 1000 ml IV at 1000 ml once; to be given as a bolus over 60 minutes jb4 Route: IV; Rate: 1000 ml; Site: right wrist; 23:34 Follow up: Response: No adverse reaction; Marked relief of symptoms; IV Status: jb4 Completed infusion; IV Intake: 1000ml 22:34 Drug: morphine IVP or IV 4 mg IVP once over 4 mins Route: IVP; Infused Over: 4 mins; jb4 Site: right wrist; 02/25 00:21 Follow up: Response: No adverse reaction; Marked relief of symptoms; Pain is decreased jb4 02/24 22:34 Drug: Ketorolac IVP 30 mg IVP once Route: IVP; Site: right wrist; jb4 02/25 00:22 Follow up: Response: No adverse reaction; Marked relief of symptoms; Pain is decreased jb4 00:05 Drug: Rocephin - Rocephin (cefTRIAXone) IVPB 1 grams IVPB once over 30 mins; (mix in 50 jb4 mL NS) Route: IVPB; Infused Over: 30 mins; Site: right wrist; 00:35 Follow up: Response: No adverse reaction; IV Status: Completed infusion; IV Intake: 68dgha4 00:47 Drug: metroNIDAZOLE IVPB 500 mg 100 ml IVPB at 200 ml/hr once over 30 mins Volume: 100 jb4 ml; Route: IVPB; Rate: 200 ml/hr; Infused Over: 30 mins; Site: right wrist; 01:17 Follow up: Response: No adverse reaction; IV Status: Completed infusion; IV Intake: jb4 100ml 01:35 Drug: D5-1/2 NS IV 1000 ml IV at 125 ml/hr continuous Route: IV; Rate: 125 ml/hr; Site: [facility] right wrist; 01:45 Follow up: IV Status: Infusion continued upon admission jb4 Intake: 02/24 23:34 IV: 1000ml; Total: 1000ml. jb4 02/25 00:35 IV: 50ml; Total: 1050ml. jb4 01:17 IV: 100ml; Total: 1150ml. jb4 Outcome: 02/24 23:45 Decision to Hospitalize by Provider. heriberto 02/25 02:01 Admitted to Med/surg accompanied by tech, via wheelchair, room 223, Report called to shima Castro RN Condition: stable Discharge instructions given to patient, Instructed on the need for admit, Demonstrated understanding of instructions, 02:26 Patient left the ED. lg3 Signatures: Dispatcher [employer] EDMS Artie Dykes RN RN jb4 Able, Lacie, RN RN lg3 Bonilla Waller MD MD sp4 Karen Fowler RN RN dex10 Brittany Borges [facility]
--- NOTE | 2024-02-25 23:48 | P.HP ---
Certification for Inpatient Patient admitted to: Observation With expected LOS: <2 Midnights Practitioner: I am a practitioner with admitting privileges, knowledge of patient current condition, hospital course, and medical plan of care. Services: Services provided to patient in accordance with Admission requirements found in Title 42 Section 412.3 of the Code of Federal Regulations Patient History Date of Service: 02/26/24 Reason for admission: Acute cholecystitis History of Present Illness: 33-year-old female presented with abdominal pain. She reports associated fever, reports symptoms worse of the last 24 hours, she reports nausea, poor p.o. intake, she denies chest pain, shortness of breath, generalized weakness, vomiting. ER evaluation CT abdomen of the abdomen shows acute cholecystitis. Plan to admit for acute cholecystitis, Acute calculus cholecystitiswith surgery to consult, keep patient n.p.o. ER evaluation3 BP 122 / 75; Pulse 115; Resp 18; Temp 100.5(O); Pulse Ox 99% on R/A; Weight 106.59 kg; cm10 Height 5 ft. 4 in. ; Pain 9/10; abdominal ultrasound IMPRESSION: Distended gallbladder with mild gallbladder wall thickening and stone impacted at the gallbladder neck. This could reflect acute cholecystitis. Cholelithiasis with stone impacted at the gallbladder neck. The gallbladder is distended. No pericholecystic inflammatory changes identified, however. Nevertheless, early or mild acute cholecystitis difficult to exclude. Normal appendix Allergies No Known Allergies Allergy (Verified 02/26/24 02:42) Home Medications: NK [No Home Meds] 02/26/24 - Past Medical/Surgical History -: Headaches -: Gallstones -: Tubal ligation Review of Systems 10-point ROS is otherwise unremarkable General: As per HPI Physical Examination - Physical Exam General: Alert, Oriented x3, Mild distress HEENT: Atraumatic, Normocephalic Neck: Supple, 2+ carotid pulse no bruit Respiratory: Clear to auscultation bilaterally, Normal air movement Cardiovascular: Normal pulses, Regular rate/rhythm, Normal S1 S2 Gastrointestinal: Other (Right upper quadrant tender) Musculoskeletal: No swelling, No contractures Integumentary: No significant lesion, No tenderness/swelling Neurological: Normal speech, Normal strength at 5/5 x4 extr, Cranial nerves 3-12 intact - Studies Laboratory Data (last 24 hrs) 02/25/24 02/25/24 21:23 21:23 WBC 8.60 Hgb 13.1 Hct 39.0 Plt Count 237 Sodium 138 Potassium 3.9 BUN 9 Creatinine 0.68 Glucose 99 Total Bilirubin 0.4 AST 20 ALT 26 Alkaline Phosphatase 102 Lipase 27 Assessment and Plan - Problems (Diagnosis) (1) Acute cholecystitis Current Visit: Yes Status: Acute (2) Right upper quadrant abdominal pain Current Visit: Yes Status: Acute - Plan Admit to observation [facility] Surgery consult, N.p.o. MRCP ordered As needed antibiotics, as needed analgesics, antiemetics, IV fluids Advance diet per surgical recommended Urine negative Discharge Plan: Home - Advance Directives Does patient have a Living Will: No Does patient have a Durable POA for Healthcare: No - Code Status/Comfort Care Code Status: Full Code Critical Care: No Time Spent Managing Pts Care (In Minutes): 55
[2024-02-25] MEDS ORDERED: CEFTRIAXONE 1000 MG/VIAL ONE (23:59)
[2024-02-25] MEDS ORDERED: NA CHLORIDE 0.9% 50 ML ONE (23:59)
[2024-02-25] MEDS ORDERED: METRONIDAZOLE 500mg IVPB 500 MG/100 ML BAG IV ONE (23:59)
[2024-02-26] MEDS ORDERED: D5 0.45 NS 1,000 ML IV ONE
[2024-02-26] MEDS ORDERED: ACETAMINOPHEN 500 MG TAB PO PRN (01:15)
[2024-02-26] MEDS: PIPER TAZO 3.375 GM in NA CHLORIDE 0.9% 100 ML IV SCH (02:39)
[2024-02-26] MEDS: D5 0.45 NS 1,000 ML IV SCH (02:39)
[2024-02-26 02:43] VITALS: BMI 40.3
[2024-02-26 04:58] LABS: Absolute Eosinophils 0.2 K/uL (0-0.5); Absolute Lymphocytes (CBC) 1.7 K/uL (0.7-4.9); Absolute Monocytes 0.7 K/uL (0.1-1.3); Absolute Neutrophil 3.5 K/uL (1.8-8.0); Basophils % 0.3 % (0-1.3); Eosinophils % 3.2 % (0-4.4); Hematocrit 35.4 % (36.0-45.0); Hemoglobin 12.1 g/dL (12.0-15.0); Lymphocytes % 27.4 % (15.3-44.8); MCH 29.5 pg (27.0-35.0); MCHC 34.3 g/dL (32.0-36.0); MCV 85.9 fL (80-100); MPV 7.5 fL (7.6-11.3); Neutrophils % 57.1 % (41.7-73.7); Nucleated Red Blood Cells % 0.2 % (0-0); Platelets 217 thou/uL (152-406); RBC Red Blood Cell Count 4.12 M/uL (3.86-4.86); Red Cell Distribution Width 13.3 % (12.1-15.2)
[2024-02-26 05:09] LABS: Albumin 2.6 g/dL (3.4-5.0); Albumin/Globulin Ratio 0.7 (1.1-1.8); Anion Gap 6.7 mEq/L (5.0-15.0); Bilirubin Total 0.4 mg/dL (0.2-1.0); Globulin 3.9 g/dL (2.3-3.5); Magnesium 1.9 mg/dL (1.6-2.4); Potassium 3.7 mEq/L (3.5-5.1); Protein, Total 6.5 g/dL (6.4-8.2)
[2024-02-26] MEDS: KCL 20 MEQ/100 mL IVPB 20 MEQ/100 ML BAG IV SCH (06:18)
--- NOTE | 2024-02-26 07:16 | P.PN ---
Date of Service: 02/26/24 Subjective: seen after MRCP completed still with nausea abd pain radiating to back ROS: 10 point ROS as noted above, otherwise negative Physical Exam: GEN: Alert, NAD HEENT: Normal conjunctiva, sclera anicteric CV: Regular rate and rhythm, no edema Pulm: Nonlabored respirations on room air, clear bilaterally ABD: soft, moderate RUQ tenderness, nondistended Neuro: Normal speech, normal affect Problem List: Acute cholecystitis elevated LFTs Presents with RUQ abdominal pain, nausea, poor intake, fever for ~1 day abdominal u/s (02/24): distended gallbladder with mild gallbladder wall thickening and stone impacted at gallbladder neck Dr. Jimenez, general surgeon consulted to eval for possible surgery MRCP (02/25): no intrahepatic biliary ductal dilation. No evidence of choledocholithiasis. 1.7 cm gallstone near gallbladder neck with wall thickening and pericholecystic fluid. +linear filling defect extending lateral to the gallbladder neck continue empiric zosyn (02/25-) continue IV fluids while NPO trend LFTs pain control Code: Full Dispo: Home, ~1-2 days Pending surgery eval/recs, tentative OR today Time Spent Managing Pts Care (In Minutes): 41
[2024-02-26] MEDS: FLU (Fluarix Triv) TS24-25(6MOS UP)/PF 45 MCG/0.5 ML Syringe IM ONE (07:45)
[2024-02-26] MEDS: MORPHINE 4 MG/ML SYR IV PRN (11:09)
--- NOTE | 2024-02-26 12:18 | RAD REPORT ---
EXAMINATION: MR CHOLANGIOGRAM CLINICAL INDICATION: Female, 33 years old. [facility] MAIN N Abdominal pain TECHNIQUE: Multiplanar, multisequence MR imaging of the abdomen without intravenous contrast, and wit h specific attention to the biliary system. Unless otherwise specified, incidental findings do not require dedicated imaging follow-up. 3D MIP reconstruction performed. COMPARISON: CT abdomen and pelvis and abdominal ultrasound 02/25/2024 FINDINGS: GALLBLADDER: Mild pericholecystic fluid along the gallbladder bed. Diffuse wall thickening. Filling d efect at the neck measuring 1.7 cm suggesting a gallstone. Linear filling defect extends lateral to the gallbladder neck, could relate to some wall calcification or small stones within the cystic duct. BILE DUCTS: No intrahepatic or extrahepatic biliary ductal dilatation. Common bile duct measures 5 mm in greatest caliber. No filling defects to suggest choledocholithiasis. LIVER: Normal in size, contour, and signal without evidence of fatty infiltration or iron deposition. No focal lesion. PANCREAS: Normal signal. No mass, ductal dilation, or patti-pancreatic fluid. SPLEEN: Normal size. No focal lesion. ADRENALS: Normal; no mass. KIDNEYS: Normal size and contour. No hydronephrosis. LYMPH NODES: No lymphadenopathy. ADDITIONAL FINDINGS: None. IMPRESSION: No intrahepatic or extrahepatic biliary ductal dilation. No evidence of choledocholithiasis. 1.7 cm gallstone near the gallbladder neck. Wall thickening and mild pericholecystic fluid may relate to ongoing acute cholecystitis. Linear filling defect extending lateral to the gallbladder neck, may relate to some wall calcification or small stones within the cystic duct.
[2024-02-26] MEDS: Ringers Lactate 1,000 ML IV ONE (12:30)
--- NOTE | 2024-02-26 12:54 | P.CNS ---
Date of Consult: 02/26/24 PC: I was asked to see this 31-year-old female who presented to emergency room with severe right upper quadrant abdominal pain for diagnosis and treatment. HPC: Patient has been having abdominal pain for the last year or so. Pain is gradually intensified until last night it got worse. Could no longer stand or doubled her over. PSHx: Tubal ligation PMHx: 4 para 4 Social Hx: No known allergies Sys R: No cough, wheeze, shortness of breath. No chest pain or palpitations. No urinary complaints O/E: Awake alert vital signs are stable HEENT: Not jaundiced Chest: Air entry equal bilaterally Abd: Tender with guarding in the right upper quadrant [place]: Intact Data: Has documented gallstones on ultrasound and CT. MRCP was negative. Impression: Acute on chronic cholecystitis with cholelithiasis Plan: I will taken the operating room for laparoscopic possible open cholecystectomy. The risks of this procedure have been discussed. The possibility of bleeding, infection, injury to bile ducts blood vessels and intestines has been described. The possible need for an open and/or further surgeries and procedures was discussed. She understands and wants us to proceed.
[2024-02-26] MEDS ORDERED: propofoL 200 MG/20 ML VIAL IV ONE (13:04)
[2024-02-26] MEDS ORDERED: FENTANYL CITR 100 MCG/2 ML ONE (13:04)
[2024-02-26] MEDS ORDERED: LIDOCAINE 1% MPF 5 ML VIAL ONE (13:04)
[2024-02-26] MEDS ORDERED: ONDANSETRON 4 MG/2 ML VIAL ONE (13:04)
[2024-02-26] MEDS ORDERED: ROCURONIUM 50 MG/5 ML VIAL IV ONE (13:05)
[2024-02-26] MEDS ORDERED: MIDAZOLAM HCL 2 MG/2 ML INJ ONE (13:05)
[2024-02-26] MEDS ORDERED: KETOROLAC 30 MG/ML INJ ONE (13:14)
[2024-02-26] MEDS ORDERED: GLYCOPYRROLATE 0.2 MG/ML SYR ONE ×2 (13:43→14:25)
[2024-02-26] MEDS ORDERED: dexAMETHasone 10 MG/ML VIAL ONE (14:08)
[2024-02-26] MEDS ORDERED: NEOSTIGMINE 1 MG/ML -10 ML VIAL ONE (14:25)
--- NOTE | 2024-02-26 14:38 | P.OP ---
Preoperative diagnosis: Acute on chronic cholecystitis with cholelithiasis Postoperative diagnosis: The same Primary procedure: Laparoscopic cholecystectomy Anesthesia: General Specimen: 1 gallbladder and contents Operative Technique: The patient brought the operating room placed supine on the table. After the induction of adequate general endotracheal anesthesia, the area of the abdomen was prepped with a DuraPrep solution, and she was draped in usual aseptic manner. A subumbilical incision was made. This is brought down through the skin and subcutaneous tissue. The Visiport was now used to enter the peritoneal cavity and created pneumoperitoneum to approximately 12 mmHg. Under direct vision a 5 mm trocar was placed in the upper midline, and 2 out of 5 mm trocars on the right lateral side of the abdomen. The patient was then placed in reverse Trendelenburg. The table was airplane to the left. On inspection of the right upper quadrant we could see an acutely inflamed gallbladder. It was quite distended. It was necessary to aspirate his contents we could place a grasper on the fundus. The contents of the gallbladder were bilious and quite thick with sludge. The grasper was now placed on the fundus. Another was placed by Eason's pouch. Applying lateral traction we were able to dissect out and expose both the cystic duct and artery. The neck of the gallbladder showed a large stone just at the outflow of the gallbladder itself. We had had a previous negative MRCP, so with a cholangiogram was not done. Clips were now placed just proximally and 2 distally on the cystic duct. The cystic duct was now divided using the scissors.'s the cystic artery was dealt with in a similar fashion. The gallbladder was now grasped with a grasper and applying lateral traction we were able to dissect the gallbladder away from the liver itself. The liver or gallbladder having been attached for the liver, it was inspected in the bed to make sure we had adequate hemostasis. This was assured using electrocautery and 1 extra clip. The gallbladder was now placed into an Endo Catch and brought out through the umbilical trocar site. We had obviously gone to the patient's prior to ligation scar. The fascia was split in a more generous left Osman that would be contained with 1 suture. Hands 3 interrupted sutures were placed using the Endo Close and an absorbable sutures. At this point the abdomen was inspected to ensure adequate hemostasis. She was placed back in the neutral position on the OR table. The right lateral side of the abdomen was now aspirated of its contents of irrigation. The rest of the peritoneal cavity was inspected. No other gross pathology was noted. The camera was withdrawn, the trocars removed after collapsing the pneumoperitoneum. The suture at the umbilicus was tied. Laquita were then applied to the skin. At the end of the procedure she was in a stable condition was sent to the recovery room. Needle sponge instrument count were correct. No drains were placed. Complications: None Transferred to: Recovery Room
[2024-02-26] MEDS: ONDANSETRON 4 MG/2 ML VIAL ONE (15:05)
[2024-02-26] MEDS: HYDROMORPHONE HCL 1 MG/ML INJ ONE ×2 (15:06→15:18)
[2024-02-26 15:57] VITALS: O2SAT 96
[2024-02-26] MEDS: PROMETHAZINE INJ 25 MG/ML AMP ONE (16:06)
[2024-02-26] MEDS: MORPHINE 2 MG/ML SYR IV PRN (20:45)
[2024-02-27] MEDS: HYDROCODONE/APAP 7.5/325 MG TAB PO PRN (01:15)
[2024-02-27 04:42] LABS: Absolute Lymphocytes (CBC) 1.2 K/uL (0.7-4.9); Absolute Monocytes 0.7 K/uL (0.1-1.3); Absolute Neutrophil 10.3 K/uL (1.8-8.0); Hemoglobin 12.3 g/dL (12.0-15.0); Lymphocytes % 9.9 % (15.3-44.8); MCH 29.3 pg (27.0-35.0); MCHC 34.2 g/dL (32.0-36.0); MCV 85.6 fL (80-100); MPV 7.5 fL (7.6-11.3); Monocytes % 5.7 % (3.3-12.3); Neutrophils % 84.4 % (41.7-73.7); Nucleated Red Blood Cells % 0.2 % (0-0); Platelets 248 thou/uL (152-406); Red Cell Distribution Width 13.4 % (12.1-15.2)
[2024-02-27 05:02] LABS: ALT/SGPT 141 U/L (13-56); AST/SGOT 87 U/L (15-37); Albumin 2.6 g/dL (3.4-5.0); Albumin/Globulin Ratio 0.6 (1.1-1.8); Alkaline Phosphatase 108 U/L (45-117); Anion Gap 7.3 mEq/L (5.0-15.0); BUN Blood Urea Nitrogen 6 mg/dL (7-18); Bicarbonate 26 mEq/L (21-32); Bilirubin Total 0.3 mg/dL (0.2-1.0); Globulin 4.2 g/dL (2.3-3.5); Glomerular Filtration Rate 123 ml/min (=/>90); Glucose Level 134 mg/dL (74-106); Potassium 4.3 mEq/L (3.5-5.1); Protein, Total 6.8 g/dL (6.4-8.2); Sodium Level 140 mEq/L (136-145)
[2024-02-27 05:05] LABS: Bilirubin Direct < 0.2 mg/dL (0-0.2); Bilirubin Indirect, Calculated 0.1 mg/dL (0.2-0.8)
[2024-02-27 08:42] VITALS: BP 119/67; TEMP 97.6
--- NOTE | 2024-02-27 09:26 | P.DS ---
Admission Date: 02/26/24 Discharge Date: 02/27/24 Reason for Admission: Acute cholecystitis Consultations: General Surgery - Dr. Jimenez Brief History of Present Illness: 33 yo F, PMH: no PMH Patient presented with abdominal pain. She reports associated fever, reports symptoms worse of the last 24 hours, she reports nausea, poor p.o. intake, she denies chest pain, shortness of breath, generalized weakness, vomiting. ER evaluation CT abdomen of the abdomen shows acute cholecystitis. Plan to admit for acute cholecystitis, Acute calculus cholecystitiswith surgery to consult, keep patient n.p.o. ER evaluation3 BP 122 / 75; Pulse 115; Resp 18; Temp 100.5(O); Pulse Ox 99% on R/A; Weight 106.59 kg; cm10 Height 5 ft. 4 in. ; Pain 9/10; abdominal ultrasound IMPRESSION: Distended gallbladder with mild gallbladder wall thickening and stone impacted at the gallbladder neck. This could reflect acute cholecystitis. Cholelithiasis with stone impacted at the gallbladder neck. The gallbladder is distended. No pericholecystic inflammatory changes identified, however. Nevertheless, early or mild acute cholecystitis difficult to exclude. Normal appendix Hospital Course: Problem List: Acute cholecystitis with cholelithiasis, now s/p lap sarita (02/25) elevated LFTs, improving Physician discharge instructions: Patient presented with right upper quadrant abdominal pain, nausea, fever for ~1 day secondary to acute cholecystitis with cholelithiasis. Abdominal ultrasound on admission noted distended gallbladder with associated gallbladder wall thickening and stone impacted at gallbladder neck. MRCP done 02/25 confirmed 1.7 cm gallstone near gallbladder neck with gallbladder wall thickening and pericholecystic fluid. No intrahepatic/extrahepatic biliary ductal dilation or choledocholithiasis seen on imaging. Patient was evaluated by Dr. Jimenez, general surgeon, and underwent laparoscopic cholecystectomy on 02/25 without any complications. She did well post operatively. Patient remained afebrile > 24 hours, abdominal pain improved, LFTs improved tolerating diet without issues and was deemed stable for discharge. Recommend following up with Dr. Jimenez in office in ~1 week for further management. Continue bland / low-fat diet. No driving while taking opioid pain medication. LFTs this hospitalization AST 20 -> 209 -> 87 ALT 26 -> 109 -> 141 Medications: Acme 7.5/325 as needed for pain Augmentin twice daily for 7 days Follow up: PCP 3-[address] Jimenez in office in ~1 week Please call to schedule / confirm appointments No heavy lifting > 10 lbs for 4-6 weeks or otherwise instructed by Dr. Jimenez Do not submerge wound underwater. Okay to shower with running water. Physical Exam: GEN: Alert, NAD, oriented x3 HEENT: Normal conjunctiva, sclera anicteric CV: Regular rate and rhythm, no edema Pulm: Nonlabored respirations on room air, clear bilaterally ABD: soft, minimall tenderness, surgical dressing in place Neuro: Normal speech, normal affect Vital Signs/Physical Exam: Temp Pulse Resp BP Pulse Ox 97.6 F 55 14 119/67 98 02/27/24 08:00 02/27/24 08:00 02/27/24 08:00 02/27/24 08:00 02/27/24 08:00 Laboratory Data at Discharge: WBC 12.20 thou/uL (4.3-10.9) H 02/27/24 04:10 Hgb 12.3 g/dL (12.0-15.0) 02/27/24 04:10 Hct 36.0 % (36.0-45.0) 02/27/24 04:10 Plt Count 248 thou/uL (152-406) 02/27/24 04:10 Sodium 140 mEq/L (136-145) 02/27/24 04:10 Potassium 4.3 mEq/L (3.5-5.1) D 02/27/24 04:10 BUN 6 mg/dL (7-18) L 02/27/24 04:10 Creatinine 0.58 mg/dL (0.55-1.02) 02/27/24 04:10 Glucose 134 mg/dL (74-106) H 02/27/24 04:10 Magnesium 1.9 mg/dL (1.6-2.4) 02/26/24 04:09 Total Bilirubin 0.3 mg/dL (0.2-1.0) 02/27/24 04:10 AST 87 U/L (15-37) H 02/27/24 04:10 ALT 141 U/L (13-56) H 02/27/24 04:10 Alkaline Phosphatase 108 U/L (45-117) 02/27/24 04:10 Lipase 27 U/L (13-75) 02/25/24 21:23 Home Medications: Amox/Clavulanate [Augmentin 875-125 Tab] 875 mg PO BID 7 Days #14 tab 02/27/24 Hydrocodone 7.5/APAP 325 [Acme 7.5/325 mg*] 1 tab PO Q8H PRN #12 tab 02/27/24 New Medications: Amox/Clavulanate [Augmentin 875-125 Tab] 875 mg PO BID 7 Days #14 tab Hydrocodone 7.5/APAP 325 [Acme 7.5/325 mg*] 1 tab PO Q8H PRN #12 tab PRN Reason: Pain Physician Discharge Instructions: Physician discharge instructions: Patient presented with right upper quadrant abdominal pain, nausea, fever for ~1 day secondary to acute cholecystitis with cholelithiasis. Abdominal ultrasound on admission noted distended gallbladder with associated gallbladder wall thickening and stone impacted at gallbladder neck. MRCP done 02/25 confirmed 1.7 cm gallstone near gallbladder neck with gallbladder wall thickening and pericholecystic fluid. No intrahepatic/extrahepatic biliary ductal dilation or choledocholithiasis seen on imaging. Patient was evaluated by Dr. Jimenez, general surgeon, and underwent laparoscopic cholecystectomy on 02/25 without any complications. She did well post operatively. Patient remained afebrile > 24 hours, abdominal pain improved, LFTs improved tolerating diet without issues and was deemed stable for discharge. Recommend following up with Dr. Jimenez in office in ~1 week for further management. Continue bland / low-fat diet. No driving while taking opioid pain medication. LFTs this hospitalization AST 20 -> 209 -> 87 ALT 26 -> 109 -> 141 Medications: Acme 7.5/325 as needed for pain Augmentin twice daily for 7 days Follow up: PCP 3-[address] Jimenez in office in ~1 week Please call to schedule / confirm appointments No heavy lifting > 10 lbs for 4-6 weeks or otherwise instructed by Dr. Jimenez Do not submerge wound underwater. Okay to shower with running water. Followup: Artie Jimenez MD [ACTIVE - CAN ADMIT] - 1-2 Weeks OOT,OOT [Primary Care Provider] - Time spent managing pt's care (in minutes): 45
== END 2024-02-27 13:25 | disposition home or self-care (01) | DRG 418 ==
LOC: ER 20:13 → ERHOLD 23:40 → 2ND 02-26 02:00 → OBSVTOIN 02-26 17:52
PROVIDERS: ADMIT Hospitalist; ATTEND Hospitalist
PROC: 0FT44ZZ Resection of Gallbladder, Percutaneous Endoscopic Approach (ICD-10-PCS; principal; 2024-02-26 11:30)
DX: K80.12 Calculus of gallbladder with acute and chronic cholecystitis without obstruction (principal); Z68.41 Body mass index [BMI] 40.0-44.9, adult; E66.01 Morbid (severe) obesity due to excess calories; F17.210 Nicotine dependence, cigarettes, uncomplicated; R79.89 Other specified abnormal findings of blood chemistry; Z98.51 Tubal ligation status
CPT/HCPCS: 36415; 74177; 74181; 76705; 80048; 80053; 80076; 81001; 81025; 83690; 83735; 85025; 86140; 88304; 96361; 96365; 96367; 96375; 99285; G0378; J0696; J1100; J1171; J2003; J2250; J2270; J2405; J2543; J2550; J2704; J2710; J2765; J3010; J3480; J7030; J7120; J7799; Q9967